=== PATIENT | male | born 1965 | race Caucasian/White ===

== ENCOUNTER 2022-03-05 11:59 | Inpatient (IN) | payer MEDICARE, SELFPAY ==
[2022-03-05] VITALS (26 sets, daily range): BP systolic 86–116; BP diastolic 45–101; PULSE 94–140; RESP 15–28; TEMP 36.2–37.1; O2SAT 90–96; BMI 34.9
--- NOTE | 2022-03-05 12:23 | CT_ITS ---
EXAM: CT HEAD WITHOUT INTRAVENOUS CONTRAST CLINICAL INDICATION: Neuro deficit, acute, stroke suspected TECHNIQUE: Multiple axial images were obtained of the head without intravenous contrast. This CT exam was performed using one or more of the following dose reduction techniques: automated exposure control, adjustment of the mA and/or kV according to patient size, and/or use of iterative reconstruction technique. This report was created using [employer] report generation technology. COMPARISON: None. FINDINGS: BRAIN AND EXTRA-AXIAL SPACES: Areas of diminished white matter density noted within both cerebral hemispheres suggestive of chronic microvascular change. Prominence of the cortical sulci and ventricles related to volume loss change. No intra- or extra-axial hemorrhage. No evidence of acute infarct. No intracranial mass or mass effect. There is preservation of the cuevas/white matter interface. Posterior fossa structures are unremarkable. Basal cisterns are patent. BONES/JOINTS: Normal. No discrete lytic or blastic abnormalities. SINUSES: Mucosal thickening of the paranasal sinuses noted. MASTOID AIR CELLS: Normal. Clear. ORBITS: Visualized globes, extraocular muscles, optic nerves and retrobulbar fat appear unremarkable. CT/STROKE Brain/Head without Cont IMPRESSION: 1. No acute intracranial abnormality. 2. Mild chronic microvascular changes. Aspect score 10 N.B. : The above Results were Read Back by Jed Galdamez MD to Deon Coffman AA, and understanding confirmed on 03/05/2022 12:16:00 (ET). Electronically Signed: Jed Galdamez MD at 12:15 EST ,
--- NOTE | 2022-03-05 12:23 | CT_ITS ---
EXAM: CT ANGIOGRAPHY HEAD AND NECK WITH INTRAVENOUS CONTRAST CLINICAL INDICATION: Neuro deficit, acute, stroke suspected TECHNIQUE: [place]/head and neck CT angiography protocol performed with intravenous contrast. This CT exam was performed using one or more of the following dose reduction techniques: automated exposure control, adjustment of the mA and/or kV according to patient size, and/or use of iterative reconstruction technique. This report was created using [employer] report generation technology. MIP reconstructed images were created and reviewed. CONTRAST: [id number] 100ML COMPARISON: None. FINDINGS: HEAD: RIGHT ANTERIOR CEREBRAL ARTERY: Normal. No significant stenosis at the visualized segments. Anterior communicating artery is present. No aneurysm. RIGHT MIDDLE CEREBRAL ARTERY: Normal. No significant stenosis at the visualized segments. No aneurysm. RIGHT POSTERIOR CEREBRAL ARTERY: Normal. No occlusion or significant stenosis. No aneurysm. RIGHT INTRACRANIAL INTERNAL CAROTID ARTERY: Normal. No significant stenosis. No dissection or occlusion. RIGHT INTRACRANIAL VERTEBRAL ARTERY: Normal. No significant stenosis. No dissection or occlusion. LEFT ANTERIOR CEREBRAL ARTERY: Normal. No significant stenosis at the visualized segments. No aneurysm. LEFT MIDDLE CEREBRAL ARTERY: Normal. No significant stenosis at the visualized segments. No aneurysm. LEFT POSTERIOR CEREBRAL ARTERY: Normal. No occlusion or significant stenosis. No aneurysm. LEFT INTRACRANIAL INTERNAL CAROTID ARTERY: Normal. No significant stenosis. No dissection or occlusion. LEFT INTRACRANIAL VERTEBRAL ARTERY: Dominant left vertebral artery is noted. No significant stenosis. No dissection or occlusion. BASILAR ARTERY: Normal. No significant stenosis. No aneurysm. NECK: RIGHT COMMON CAROTID ARTERY: Normal. No significant stenosis. No dissection or occlusion. RIGHT EXTRACRANIAL INTERNAL CAROTID ARTERY: Normal. No significant stenosis. No dissection or occlusion. RIGHT EXTERNAL CAROTID ARTERY: Normal. No occlusion. RIGHT EXTRACRANIAL VERTEBRAL ARTERY: Cervical portion of the right vertebral artery is quite small in size which appears to be on a congenital level and terminates in small inferior cerebellar branches. No significant stenosis. No dissection or occlusion. LEFT COMMON CAROTID ARTERY: Normal. No significant stenosis. No dissection or occlusion. LEFT EXTRACRANIAL INTERNAL CAROTID ARTERY: Localized 13 mm outpouching from the distal portion of the extracranial left internal carotid artery indicative of a localized pseudoaneurysm. No significant stenosis. No dissection or occlusion. LEFT EXTERNAL CAROTID ARTERY: Normal. No occlusion. LEFT EXTRACRANIAL VERTEBRAL ARTERY: Normal. GREAT VESSELS OF AORTIC ARCH: Unremarkable as visualized. Normal anatomy, patent. LUNG APICES: Prominent air space opacification of the right lung indicative of pneumonia. HEAD and NECK: BONES/JOINTS: Normal. No discrete lytic or blastic abnormalities. SOFT TISSUES: Normal. CAROTID STENOSIS REFERENCE USING NASCET CRITERIA: % ICA stenosis = (1 - narrowest ICA diameter/diameter of distal cervical ICA) x 100. Mild - <50% stenosis. Moderate - 50-69% stenosis. Severe - 70-94% stenosis. Near occlusion - 95-99% stenosis. Occluded - 100% stenosis. CT/STROKE CTA Head AND Neck W/Con IMPRESSION: 1. 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 2. No intracranial artery aneurysm, dissection, stenosis or occlusion. 3. Right upper and lower lobe pneumonia. N.B. : The above Results were Read Back by Jed Galdamez MD to Deon Coffman MD, and understanding confirmed on 03/05/2022 12:39:56 (ET). Electronically Signed: Jed Galdamez MD at 12:38 EST ,
--- NOTE | 2022-03-05 12:23 | EKG12_ITS ---
Test Reason : SEIZURE/STROKE Blood Pressure : / mmHG Vent. Rate : 113 BPM Atrial Rate : 113 BPM P-R Int : 140 ms QRS Dur : 084 ms QT Int : 324 ms P-R-T Axes : 063 065 064 degrees QTc Int : 444 ms Sinus tachycardia Otherwise normal ECG Confirmed by PILAR MCCLOUD, SIS ([id number]), film or videotape editor NICKIE RODARTE ([id number]) on 03/06/2022 12:04:56 PM Referred By: BENOIT Confirmed By:SIS QUEZADA MD
--- NOTE | 2022-03-05 12:31 | EX.ED.DYSGE1 ---
HPI History of Present Illness Chief Complaint: Stroke Alert Informant: EMS Narrative Narrative: 56-year-old male with reported history of prior stroke on Plavix presenting to the emergency department with altered mental status. Reportedly neighbors called EMS after finding the patient having a seizure in the chair. It was reported to EMS that somebody a neighbor spoke with him last night around 2000 hours. EMS states that he was found in a generalized seizure but by the time they got him out of the house he was no longer having a seizure but instead seem postictal. He has not been verbal and has not been following commands. He is noted to be shaking the right arm and then occasionally shaking the left arm. His speech is unintelligible but he can follow some commands such as closing his eyes [facility] Medical History (Updated 03/05/22 @ 14:[address] Deon Coffman, ) GERD (gastroesophageal reflux disease) Headache High cholesterol High triglycerides History of emotional problems History of high blood pressure Migraines Osteoarthritis Pseudoseizures Seasonal allergies Vision problems Home Medications Heavy duty shower chair #1 ea 09/27/21 [Rx Last Taken Unknown] acetaminophen 650 mg tablet,extended release (Tylenol Arthritis Pain) 650 mg PO Q12H 09/27/21 [History Last Taken Unknown] atorvastatin 20 mg tablet (Lipitor) 20 mg PO DAILY 09/27/21 [History Last Taken Unknown] baclofen 20 mg tablet See Rx Instructions .Route .COMPLEX #450 tabs 09/27/21 [Rx Last Taken Unknown] clopidogrel 75 mg tablet (Plavix) 75 mg PO DAILY #90 tabs 09/27/21 [Rx Last Taken Unknown] doxazosin 8 mg tablet 8 mg PO DAILY 09/27/21 [History Last Taken Unknown] duloxetine 60 mg capsule,delayed release 60 mg PO DAILY 09/27/21 [History Last Taken Unknown] fenofibrate 160 mg tablet 160 mg PO DAILY 09/27/21 [History Last Taken Unknown] flurbiprofen 100 mg tablet 100 mg PO TID PRN pain #270 tabs 09/27/21 [Rx Last Taken Unknown] lisinopril 20 mg tablet 20 mg PO DAILY 09/27/21 [History Last Taken Unknown] multivitamin (Multiple Vitamins tablet) 1 tab PO DAILY 09/27/21 [History Last Taken Unknown] olanzapine 7.5 mg tablet 7.5 mg PO QAM #90 tabs 09/27/21 [Rx Last Taken Unknown] omeprazole 40 mg capsule,delayed release 40 mg PO DAILY #90 caps 09/27/21 [Rx Last Taken Unknown] ropinirole 4 mg tablet 4 mg PO BID #180 tabs 09/27/21 [Rx Last Taken Unknown] Allergy/AdvReac Type Severity Reaction Status Date / Time codeine Allergy Hives Verified 03/05/22 13:04 Iodinated Contrast Media Allergy Hives Verified 03/05/22 12:51 [contrast dye - iodinated] Penicillins Allergy Hives Verified 03/05/22 13:01 shellfish derived Allergy Hives Verified 03/05/22 13:04 Family History Sister Anemia Mother Arthritis Hypertension Father Arthritis Hypertension High cholesterol Grandmother Depression Heart disease Thyroid disorder Surgical History H/O: vasectomy History of ankle surgery History of appendectomy History of tonsillectomy Social History Smoking Status: Current every day smoker tobacco type: cigarettes second hand exposure: Yes alcohol intake: current substance use type: does not use [place]/temple: [employer] seatbelt use: always ROS ROS ED Review of Systems ROS Unobtainable: due to mental status EXAM Physical Exam Const Vital Signs: 03/05/22 12:03 03/05/22 12:23 03/05/22 12:32 Temperature 98.1 F 98.1 F Temperature Source Temporal Temporal Pulse Rate 118 H 111 H 111 H Respiratory Rate 28 H 20 H 21 H Blood Pressure 99/63 94/54 L 96/64 Blood Pressure Mean 75 67 74 Pulse Ox 91 93 94 Oxygen Delivery Method Room Air Nasal Cannula Nasal Cannula Oxygen Flow Rate (L/min) 4 4 03/05/22 12:40 03/05/22 13:10 03/05/22 13:40 Temperature 98 F Temperature Source Oral Pulse Rate 109 H 108 H 94 Respiratory Rate 22 H 23 H 17 Blood Pressure 108/57 L 98/62 99/57 L Blood Pressure Mean 74 74 71 Pulse Ox 93 92 92 Oxygen Delivery Method Nasal Cannula Nasal Cannula Nasal Cannula Oxygen Flow Rate (L/min) 4 4 2 03/05/22 13:45 03/05/22 14:00 03/05/22 14:30 Temperature 97.7 F L Temperature Source Temporal Pulse Rate 105 H 105 H 103 H Respiratory Rate 18 22 H 22 H Blood Pressure 101/68 98/52 L Blood Pressure Mean 79 67 Pulse Ox 94 92 Oxygen Delivery Method Nasal Cannula Nasal Cannula Oxygen Flow Rate (L/min) 4 4.5 Positive well nourished and well developed General Appearance ED: well developed HEENT Reports normocephalic, head/scalp atraumatic and moist mucous membranes Eyes PERRL and EOMs intact bilaterally Neck no lymphadenopathy, supple and no JVD Resp normal respiratory effort and clear to auscultation bilaterally Cardio regular rate, regular rhythm and no murmurs GI normal to inspection, nondistended, normoactive bowel sounds and non-tender Palpation: soft Back/Spine no CVA tenderness and normal ROM Extremity normal to inspection General Extremety ED: Negative for edema General Extremity: Negative for edema Neuro Sensorium / Orientation: alert Psych mental status grossly normal Mood & Affect: Negative for depressed or tearful Skin no rashes or lesions noted and no wounds Sepsis Attestation Possible Source of Sepsis: Pulmonary Sepsis Organ Dysfunction Criteria Present: Creatinine > 2.0 mg/dL and Lactic Acid > 2 mmol/L MDM MDM MDM Narrative Medical decision making narrative: I am finding the patient's exam rather in move the left arm but it others taking it. Same thing for the right arm. At times it sounds like he cannot say anything and other times I can understand him. I do not think that he is a candidate for tPA. I do not see LVO. Patient was assessed by neurology who is concerned about a acute stroke. The patient's speech is becoming improved. I have not seen any further seizure activity. A being told by nursing that he has a history of pseudoseizures. The patient's chest x-ray is consistent with pneumonia. He received a breathing treatment and I am concerned about aspiration so I gave Rocephin and clindamycin. He is also requiring supplemental oxygen. He received IV fluids which is improved heart rate and blood pressure. Lab Data Attestation: I reviewed the patient's lab results. Labs: Laboratory Results - last 24 hr 03/05/22 03/05/22 03/05/22 12:15 12:15 12:15 WBC 7.6 RBC 4.00 L Hgb 11.9 L Hct 36.8 L MCV 92.0 MCH 29.8 MCHC 32.3 RDW Std Deviation 54.5 H RDW Coeff of Keith 16.0 H Plt Count 161 MPV 10.0 Neut % (Auto) Not Reportable Absolute Neuts (auto) 5.9 Absolute Lymphs (auto) 0.76 L Total Counted 100 Neutrophils % (Manual) 56 Band Neutrophils % 22 H Lymphocytes % (Manual) 10 L Monocytes % (Manual) 2 Metamyelocytes % 7 H Myelocytes % 3 H Diff Path Review May foll Platelet Estimate ADEQUATE RBC Morphology NORM C+C PT 17.0 H INR 1.4 APTT 33.4 Sodium Potassium Chloride Carbon Dioxide Anion Gap BUN Creatinine Estim Creat Clear Calc Est GFR (MDRD) Af Amer Est GFR (MDRD) Non-Af BUN/Creatinine Ratio Glucose Lactic Acid Calcium Total Bilirubin 0.90 Direct Bilirubin 0.49 H AST 26 ALT 30 Alkaline Phosphatase 44 L Troponin I High Sens Total Protein 6.3 L Albumin 2.8 L Globulin 3.5 Urine Color Urine Clarity Urine pH Ur Specific [place] Urine Protein Urine Glucose (UA) Urine Ketones Urine Occult Blood Urine Nitrite Urine Bilirubin Urine Urobilinogen Ur Leukocyte Esterase Urine RBC Urine WBC Ur Squamous Epith Cells Urine Bacteria Hyaline Casts Fine Granular Casts Waxy Casts Urine Mucus 03/05/22 03/05/22 03/05/22 12:15 12:15 13:32 WBC RBC Hgb Hct MCV MCH MCHC RDW Std Deviation RDW Coeff of Keith Plt Count MPV Neut % (Auto) Absolute Neuts (auto) Absolute Lymphs (auto) Total Counted Neutrophils % (Manual) Band Neutrophils % Lymphocytes % (Manual) Monocytes % (Manual) Metamyelocytes % Myelocytes % Diff Path Review Platelet Estimate RBC Morphology PT INR APTT Sodium 135 L Potassium 4.0 Chloride 100 Carbon Dioxide 22.0 Anion Gap 13 BUN 34 H Creatinine 3.24 H Estim Creat Clear Calc 30.43 Est GFR (MDRD) Af Amer 26 L Est GFR (MDRD) Non-Af 21 L BUN/Creatinine Ratio 10.5 Glucose 116 H Lactic Acid 5.4 H* Calcium 8.7 Total Bilirubin Direct Bilirubin AST ALT Alkaline Phosphatase Troponin I High Sens 9 Total Protein Albumin Globulin Urine Color [place] Urine Clarity Clear Urine pH 5.0 Ur Specific [place] 1.025 Urine Protein 30 H Urine Glucose (UA) Normal Urine Ketones 5 H Urine Occult Blood 10 H Urine Nitrite Positive H Urine Bilirubin 3 H Urine Urobilinogen 4 H Ur Leukocyte Esterase 25 H Urine RBC 0-5 SEEN Urine WBC 5-10 SEEN Ur Squamous Epith Cells 0-5 SEEN Urine Bacteria 1+ Hyaline Casts 10-25 SEEN Fine Granular Casts 0-5 SEEN Waxy Casts 0-5 SEEN H Urine Mucus 1+ Radiography Diagnostic Testing: Clinical Impression(s) from Imaging Studies Brain CT 03/05/22 12:23 IMPRESSION: 1. No acute intracranial abnormality. 2. Mild chronic microvascular changes. Aspect score 10 N.B. : The above Results were Read Back by Jed Galdamez MD to Deon Coffman AA, and understanding confirmed on 03/05/2022 12:16:00 (ET). Electronically Signed: Jed Galdamez MD at 12:15 EST , Head/Neck CTA 03/05/22 12:23 IMPRESSION: 1. 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 2. No intracranial artery aneurysm, dissection, stenosis or occlusion. 3. Right upper and lower lobe pneumonia. N.B. : The above Results were Read Back by Jed Galdamez MD to Deon Coffman MD, and understanding confirmed on 03/05/2022 12:39:56 (ET). Electronically Signed: Jed Galdamez MD at 12:38 EST , Chest X-Ray 03/05/22 13:02 IMPRESSION: Bilateral pneumonia. Electronically Signed: Jed Galdamez MD at 13:29 EST , EKG Initial EKG: Attestation: I personally reviewed and interpreted this EKG as follows: Comments: Sinus tachycardia with a ventricular rate of 113 bpm Discharge Plan Dx/Rx/DC Orders Clinical Impression: Stroke, Pneumonia, Anxiety, Acute hypoxemic respiratory failure, Seizure Disposition Disposition: Acute Care [facility] NIHSS NIHSS 1a. Level of Consciousness: Alert; keenly responsive 1b. LOC Questions: Answers neither question correctly. 1c. LOC Commands: Performs one task correctly. 2. Best Gaze: Normal 3. Visual: No visual loss 4. Facial Palsy: Normal symmetrical movements 5a. Left Arm: No drift; arm holds 90 (or 45) degrees for full 10 seconds 5b. Right Arm: No drift; arm holds 90 (or 45) degrees for full 10 seconds 6a. Left Leg: No drift; leg holds 30-degree position for full 5 seconds 6b. Right Leg: No drift; leg holds 30-degree position for full 5 seconds 7. Limb Ataxia: Absent 8. Sensory: Normal; no sensory loss 9. Best Language: Severe aphasia; 10. Dysarthria: [id number] dysarthria; 11. Extinction and Inattention: No abnormality Total: 6
[2022-03-05 12:37] LABS: Hematocrit 36.8 % (40-54); Hemoglobin 11.9 g/dL (13.0-16.5); Mean Corp Hgb Conc 32.3 g/dL (32-36); Mean Corpuscular Hgb 29.8 pg (27.0-32.0); POSITIVE COUNT YES; POSITIVE DIFFERENTIAL YES; POSITIVE MORPHOLOGY YES; Platelet Count 161 K/mm3 (150-450); RBC Distribution Width SD 54.5 fl (35.1-43.9); White Blood Count 7.6 K/mm3 (4.4-11.0)
[2022-03-05 12:41] LABS: Differential Indicated MANUAL DIFF
[2022-03-05] MEDS: 0.9% Normal Saline 1,000 ML 999 ML IV ×4 (12:50→18:35)
[2022-03-05 12:53] LABS: International Normalized Ratio 1.4; Partial Thromboplast Time 33.4 Seconds (24.1-36.2)
[2022-03-05 12:57] LABS: Anion Gap 13 (5-15); BUN 34 mg/dL (7-18); BUN/Creat Ratio 10.5 RATIO (10-20); Calcium,Total 8.7 mg/dL (8.5-10.1); Chloride 100 mmol/L (98-107); Creatinine, Serum 3.24 mg/dL (0.70-1.30); EST Glomerular Filtration Rate 21 mL/min (>60); Est Glom Filt Rate - Afr Amer 26 mL/min (>60); Estimated Creatinine Clearance 30.43 ml/min; Glucose 116 mg/dL (74-106); Sodium Level 135 mmol/L (136-145); Troponin-I HS 9 pg/mL (3.0-78.0)
[2022-03-05 13:01] LABS: AST(SGOT) 26 U/L (15-37); Alanine Aminotransfer ALT/SGPT 30 U/L (16-61); Albumin, Serum 2.8 g/dL (3.2-5.0); Alkaline Phosphatase 44 U/L (45-117); Bilirubin, Direct 0.49 mg/dL (0.00-0.30); Globulin 3.5 g/dL (2.2-4.2); Protein, Total 6.3 g/dL (6.4-8.2)
--- NOTE | 2022-03-05 13:02 | RAD_ITS ---
EXAM: XR CHEST, 1 VIEW CLINICAL INDICATION: Neuro deficit, acute, stroke suspected TECHNIQUE: Frontal view of the chest. This report was created using [employer] report generation technology. COMPARISON: None. FINDINGS: LUNGS AND PLEURAL SPACES: Fairly dense consolidation of the right upper and right middle lobes of the lung and to a lesser degree the left lower lobe consistent with pneumonia. No gross pleural effusion. No pneumothorax. HEART: Normal heart size. MEDIASTINUM: No mediastinal or hilar mass. BONES/JOINTS: No acute abnormality. SOFT TISSUES: Normal. RAD/Chest 1 View IMPRESSION: Bilateral pneumonia. Electronically Signed: Jed Galdamez MD at 13:29 EST ,
[2022-03-05 13:05] LABS: Lactic Acid 5.4 mmol/L (0.4-1.9)
[2022-03-05 13:18] LABS: Lymphocyte 10 % (19-41); Metamyelocyte 7 % (0-1); Monocyte 2 % (0-10); Myelocyte 3 % (0-0); Neutrophil-Band 22 % (0-5); Neutrophil-Segmented 56 % (47-70); Total Cells Counted 100 (MANUAL DIFF)
[2022-03-05 13:19] LABS: Platelet Estimate ADEQUATE (ADEQ); Red Cell Morphology NORM C+C NORMAL (NORM C&C)
[2022-03-05 13:20] LABS: Absolute Neutrophil Count 5.9 X10^3/uL (2.0-7.7)
[2022-03-05 13:21] LABS: Absolute Lymphocyte Count 0.76 X10^3/uL (0.83-4.51)
[2022-03-05 13:38] LABS: Color, Urine Amber (Yellow); Glucose, Dipstick Normal (Normal); Ketone-Dipstick 5 mg/dl (Negative); Leukocyte Esterase-Dipstick 25 /ul (Negative); Nitrite-Dipstick Positive (Negative); Occult Blood-Urine 10 /ul (Negative); Protein-Dipstick 30 mg/dl (Negative); Specific Gravity, Urine 1.025 (1.002-1.030); Urine Clarity Clear (Clear); Urine Urobilinogen 4 mg/dl (Normal)
[2022-03-05 13:43] LABS: Urine Bilirubin Dipstick 3 mg/dL (Negative)
[2022-03-05] MEDS: Ipratropium/Albuterol Sulfate 3 ML AMPUL.NEB INHALATION (13:44)
[2022-03-05 13:48] LABS: Bacteria 1+ /hpf (None Seen); Fine Granular Cast- Urine 0-5 SEEN /lpf (0-5); Hyaline Cast 10-25 SEEN /lpf (0-5); Mucous, Urine 1+ /hpf (<or=2+); Squamous Epithelial Cells - UA 0-5 SEEN /hpf (0-5)
[2022-03-05 13:51] LABS: Red Blood Cells-Urine 0-5 SEEN /hpf (0-5); White Blood Cells 5-10 SEEN /hpf (0-5)
[2022-03-05 13:52] LABS: Waxy Cast-Urine 0-5 SEEN /lpf (None Seen)
[2022-03-05] MEDS: Ceftriaxone 1 GM/50 ML BAG IV (14:38)
[2022-03-05] MEDS: Clindamycin 600 MG/50 ML BAG 100 MG IV (15:14)
--- NOTE | 2022-03-05 15:18 | ED.RN ---
Sera Bgogs, , would be able to pick patient up if needed and was wanting to be called as back up to [facility] as listed in contacts.
--- NOTE | 2022-03-05 16:04 | PCM.HP.STD ---
HPI - General General Date of Admission: 03/05/22 Date of Service: 03/05/22 Chief Complaint: confusion HPI Narrative ANDREA MCLAUGHLIN, is a 56 M who presents with confusion by family. Neighbors had called EMS after what appeared to be a seizure in a chair. Patient was seen last night around 1999. EMS states the patient was having a seizure but was not having a seizure when they arrived. The postictal period patient was noted to be shaking his right arm but patient also has reported history of pseudoseizures.'s patient was brought to the emergency room and evaluated. Patient had a head CT, CTA of the head neck that were unremarkable. Patient was seen by [facility] who recommended additional stroke work-up including TTE, MRI of the head as well therapy evaluations. Patient was found to have a right lower lobe infiltrate and did receive ceftriaxone and clindamycin in the emergency room. Patient does have dysarthria but patient's [id number] is present and states that that that is his baseline from his prior stroke but he is stammering more. Patient is confused so much of the history is obtained through the emergency room physician as well as [id number] at bedside. [facility] Medical History GERD (gastroesophageal reflux disease) Headache High cholesterol High triglycerides History of emotional problems History of high blood pressure Migraines Osteoarthritis Pseudoseizures Seasonal allergies Vision problems Home Medications Heavy duty shower chair #1 ea 09/27/21 [Rx Last Taken Unknown] acetaminophen 650 mg tablet,extended release (Tylenol Arthritis Pain) 650 mg PO Q12H 09/27/21 [History Last Taken Unknown] atorvastatin 20 mg tablet (Lipitor) 20 mg PO DAILY 09/27/21 [History Last Taken Unknown] baclofen 20 mg tablet See Rx Instructions .Route .COMPLEX #450 tabs 09/27/21 [Rx Last Taken Unknown] clopidogrel 75 mg tablet (Plavix) 75 mg PO DAILY #90 tabs 09/27/21 [Rx Last Taken Unknown] doxazosin 8 mg tablet 8 mg PO DAILY 09/27/21 [History Last Taken Unknown] duloxetine 60 mg capsule,delayed release 60 mg PO DAILY 09/27/21 [History Last Taken Unknown] fenofibrate 160 mg tablet 160 mg PO DAILY 09/27/21 [History Last Taken Unknown] flurbiprofen 100 mg tablet 100 mg PO TID PRN pain #270 tabs 09/27/21 [Rx Last Taken Unknown] lisinopril 20 mg tablet 20 mg PO DAILY 09/27/21 [History Last Taken Unknown] multivitamin (Multiple Vitamins tablet) 1 tab PO DAILY 09/27/21 [History Last Taken Unknown] olanzapine 7.5 mg tablet 7.5 mg PO QAM #90 tabs 09/27/21 [Rx Last Taken Unknown] omeprazole 40 mg capsule,delayed release 40 mg PO DAILY #90 caps 09/27/21 [Rx Last Taken Unknown] ropinirole 4 mg tablet 4 mg PO BID #180 tabs 09/27/21 [Rx Last Taken Unknown] Allergy/AdvReac Type Severity Reaction Status Date / Time codeine Allergy Hives Verified 03/05/22 13:04 Iodinated Contrast Media Allergy Hives Verified 03/05/22 12:51 [contrast dye - iodinated] Penicillins Allergy Hives Verified 03/05/22 13:01 shellfish derived Allergy Hives Verified 03/05/22 13:04 Family History Sister Anemia Mother Arthritis Hypertension Father Arthritis Hypertension High cholesterol Grandmother Depression Heart disease Thyroid disorder Surgical History H/O: vasectomy History of ankle surgery History of appendectomy History of tonsillectomy Social History Smoking Status: Current every day smoker tobacco type: cigarettes second hand exposure: Yes alcohol intake: current substance use type: does not use [place]/voodoo: [employer] seatbelt use: always ROS Review of Systems ROS Unobtainable: due to encephalopathy Vital Signs Vital Signs Vital Signs: 03/05/22 12:03 03/05/22 12:23 03/05/22 12:32 Temperature 36.7 C 36.7 C Temperature Source Temporal Temporal Pulse Rate 118 H 111 H 111 H Respiratory Rate 28 H 20 H 21 H Blood Pressure 99/63 94/54 L 96/64 Blood Pressure Mean 75 67 74 Pulse Ox 91 93 94 Oxygen Delivery Method Room Air Nasal Cannula Nasal Cannula Oxygen Flow Rate (L/min) 4 4 03/05/22 12:40 03/05/22 13:10 03/05/22 13:40 Temperature 36.6 C Temperature Source Oral Pulse Rate 109 H 108 H 94 Respiratory Rate 22 H 23 H 17 Blood Pressure 108/57 L 98/62 99/57 L Blood Pressure Mean 74 74 71 Pulse Ox 93 92 92 Oxygen Delivery Method Nasal Cannula Nasal Cannula Nasal Cannula Oxygen Flow Rate (L/min) 4 4 2 03/05/22 13:45 03/05/22 14:00 03/05/22 14:30 Temperature 36.5 C L Temperature Source Temporal Pulse Rate 105 H 105 H 103 H Respiratory Rate 18 22 H 22 H Blood Pressure 101/68 98/52 L Blood Pressure Mean 79 67 Pulse Ox 94 92 Oxygen Delivery Method Nasal Cannula Nasal Cannula Oxygen Flow Rate (L/min) 4 4.5 03/05/22 15:20 03/05/22 15:00 03/05/22 15:00 Temperature 36.6 C Temperature Source Temporal Pulse Rate 102 H 102 H 102 H Respiratory Rate 22 H 22 H 22 H Blood Pressure 97/62 97/62 97/62 Blood Pressure Mean 73 73 73 Pulse Ox 92 92 92 Oxygen Delivery Method Nasal Cannula Nasal Cannula Nasal Cannula Oxygen Flow Rate (L/min) 4 2 03/05/22 15:30 Temperature Temperature Source Pulse Rate 101 H Respiratory Rate 20 H Blood Pressure 112/89 H Blood Pressure Mean 96 Pulse Ox 94 Oxygen Delivery Method Nasal Cannula Oxygen Flow Rate (L/min) 4 Weight Weight: 127 kg Body Mass Index (BMI) 34.9 Physical Exam Const Constitutional Narrative: Alert to self but not the place and time. Follows commands. HEENT normocephalic and head/scalp atraumatic Eyes PERRL and EOMs intact bilaterally Neck no lymphadenopathy Neck Narrative: No lymphadenopathy Resp normal respiratory effort, no retractions, no use of accessory muscles and clear to auscultation bilaterally Cardio regular rate, regular rhythm, S1 normal heart sound and S2 normal heart sound GI normal to inspection, nondistended, normoactive bowel sounds, soft to palpation, non-tender and non-distended Extremity normal to inspection Neuro CN's II-XII intact bilaterally Neuro Narrative: Muscle strength is diffusely weak throughout. Patient noted mostly having tremulousness of his right upper extremity but not in any other extremities. Noted dysarthria. Difficulty reciting the pitcher on the NIH scale. Missed cactus and feather on the item selection. NIH score of 15. Psych affect normal Results Lab / Micro Data Result Diagrams: 03/05/22 12:15 03/05/22 12:15 Labs: Laboratory Results - last 24 hr 03/05/22 12:15: Total Bilirubin 0.90, Direct Bilirubin 0.49 H, AST 26, ALT 30, Alkaline Phosphatase 44 L, Total Protein 6.3 L, Albumin 2.8 L, Globulin 3.5 03/05/22 12:15: WBC 7.6, RBC 4.00 L, Hgb 11.9 L, Hct 36.8 L, MCV 92.0, MCH 29.8, MCHC 32.3, RDW Std Deviation 54.5 H, RDW Coeff of Keith 16.0 H, Plt Count 161, MPV 10.0, Neut % (Auto) Not Reportable, Absolute Neuts (auto) 5.9, Absolute Lymphs (auto) 0.76 L, Total Counted 100, Neutrophils % (Manual) 56, Band Neutrophils % 22 H, Lymphocytes % (Manual) 10 L, Monocytes % (Manual) 2, Metamyelocytes % 7 H, Myelocytes % 3 H, Diff Path Review May foll, Platelet Estimate ADEQUATE, RBC Morphology NORM C+C 03/05/22 12:15: PT 17.0 H, INR 1.4, APTT 33.4 03/05/22 12:15: Sodium 135 L, Potassium 4.0, Chloride 100, Carbon Dioxide 22.0, Anion Gap 13, BUN 34 H, Creatinine 3.24 H, Estim Creat Clear Calc 30.43, Est GFR (MDRD) Af Amer 26 L, Est GFR (MDRD) Non-Af 21 L, BUN/Creatinine Ratio 10.5, Glucose 116 H, Calcium 8.7, Troponin I High Sens 9 03/05/22 12:15: Lactic Acid 5.4 H* 03/05/22 13:32: Urine Color Estrellita, Urine Clarity Clear, Urine pH 5.0, Ur Specific [place] 1.025, Urine Protein 30 H, Urine Glucose (UA) Normal, Urine Ketones 5 H, Urine Occult Blood 10 H, Urine Nitrite Positive H, Urine Bilirubin 3 H, Urine Urobilinogen 4 H, Ur Leukocyte Esterase 25 H, Urine RBC 0-5 SEEN, Urine WBC 5-10 SEEN, Ur Squamous Epith Cells 0-5 SEEN, Urine Bacteria 1+, Hyaline Casts 10-25 SEEN, Fine Granular Casts 0-5 SEEN, Waxy Casts 0-5 SEEN H, Urine Mucus 1+ Radiology Impression Brain CT 03/05/22 12:23 IMPRESSION: 1. No acute intracranial abnormality. 2. Mild chronic microvascular changes. Aspect score 10 N.B. : The above Results were Read Back by Jed Galdamez MD to Deon Coffman AA, and understanding confirmed on 03/05/2022 12:16:00 (ET). Electronically Signed: Jde Galdamez MD at 12:15 EST , Head/Neck CTA 03/05/22 12:23 IMPRESSION: 1. 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 2. No intracranial artery aneurysm, dissection, stenosis or occlusion. 3. Right upper and lower lobe pneumonia. N.B. : The above Results were Read Back by Jed Galdamez MD to Deon Coffman MD, and understanding confirmed on 03/05/2022 12:39:56 (ET). Electronically Signed: Jed Galdamez MD at 12:38 EST , Chest X-Ray 03/05/22 13:02 IMPRESSION: Bilateral pneumonia. Electronically Signed: Jed Galdamez MD at 13:29 EST , Assessment & Plan Assessment/Plan (1) CVA (cerebral vascular accident): PLAN: Suspected but cannot rule out postictal versus other possibilities. Patient will have an MRI of the brain, 2D echocardiogram, fasting lipid panel. Therapy evaluations with physical, occupational and speech therapy Aspirin Continue with clopidogrel and atorvastatin Cannot rule out seizure or postictal. Check EEG (2) Pneumonia: PLAN: Right lower lobe infiltrate. Could be community-acquired/pneumococcal versus aspiration with this possible seizure Will continue with antibiotics with ceftriaxone and azithromycin Check sputum culture Check urinary antigens for strep and Legionella (3) ANJALI (acute kidney injury): PLAN: No baseline but cannot rule out chronic kidney disease IV fluids Avoid nephrotoxic agents Check urinary sodium and creatinine to calculate FENa Check renal US. (4) Lactic acidosis: PLAN: Unclear etiology Possibilities could be related with pneumonia versus possible seizure versus sepsis. Follow-up Patient will be receiving IV fluids (5) Seizure: PLAN: Unclear if patient's actively having seizures or pseudoseizures Check EEG As needed lorazepam PLAN: Plan Chronic conditions Chronic back pain: Hold baclofen, flurbiprofen Depression: Hold olanzapine and duloxetine anxiety pseudoseizures: Monitor History of stroke VTE prophylaxis with Lovenox Charges/Coding Visit Charges Inpatient E&M: 22021 Init Hosp L3
--- NOTE | 2022-03-05 16:30 | ED.RN ---
care of pt was taken over at 1608. sepsis screen completed and dr informed. initial md signed over pt to secondary md. secondary md was informed of sepsis checklist results. pt held in department for secondary md to evaluated at his request. yerfi keating rn [id number]
[2022-03-05 16:33] LABS: Reflex Lactate? Y
--- NOTE | 2022-03-05 16:46 | ECHOCS_ITS ---
Reason For Study: TIA/CVA Procedure This was a 2D Doppler, Color Flow transthoracic echocardiogram. The study was technically difficult. Exam performed portable in patient room. Left Ventricle Normal LV size. Left ventricular systolic function is lower limits of normal. The estimated ejection fraction is 50 %. No regional wall motion abnormalities noted. Right Ventricle Normal RV size. Normal systolic function. Atria Normal left atrium. Normal right atrium. Bubble contrast study negative for right to left interatrial shunt. Mitral Valve Mitral valve not well visualized. Tricuspid Valve Normal tricuspid valve. Mild tricuspid valve insufficiency. Pulmonary artery systolic pressure is 32 mmHg. Aortic Valve The aortic valve is not well visualized. Pulmonic Valve The pulmonic valve is not well visualized. Great Vessels Normal aortic root. The pulmonary artery is normal size. Normal inferior vena cava. Pericardium/Pleural No pericardial effusion. Medication Performed a rapid injection of agitated mix of 9 cc saline and 1cc air to assess for atrial septal defect. Diluted definity 3ml given slow IV push to enhance endocardial definition. MMode/2D Measurements & Calculations LVIDd: 5.7 cm IVSd: 1.1 cm Ao root diam: 3.1 cm LVIDs: 4.1 cm LVPWd: 0.99 cm FS: 28.4 % LAV(MOD-bp): 68.2 ml LVAd ap4: 31.4 cm2 SV(MOD-sp4): 51.9 ml LAV(MOD-bp) Indexed: 26.9 ml/m2 LVLd ap4: 8.3 cm LAV(MOD-sp2): 65.3 ml EDV(MOD-sp4): 97.5 ml LAV(MOD-sp4): 62.1 ml EDV(sp4-el): 101.1 ml LVAs ap4: 20.0 cm2 LVLs ap4: 7.2 cm ESV(MOD-sp4): 45.6 ml ESV(sp4-el): 47.5 ml EF(MOD-sp4): 53.2 % EF(sp4-el): 53.0 % SV(sp4-el): 53.6 ml LA A4 area: 21.8 cm2 LA dimension(2D): 4.2 cm RA A4 area: 18.4 cm2 Doppler Measurements & Calculations MV E max ivan: 53.8 cm/sec Lat Peak E' Ivan: 8.0 cm/sec Med Peak E' Ivan: 5.3 cm/sec MV A max ivan: 63.7 cm/sec E/E' lat: 6.7 E/E' med: 10.2 MV E/A: 0.84 Ao V2 max: 115.3 cm/sec LV V1 max: 93.2 cm/sec PA V2 max: 62.7 cm/sec Ao max P.3 mmHg LV V1 max P.5 mmHg TR max ivan: 264.6 cm/sec TR max P.0 mmHg ECHO/Echo Complete W/ Contrast Interpretation Summary Normal LV size. Left ventricular systolic function is lower limits of normal. The estimated ejection fraction is 50 %. Bubble contrast study negative for right to left interatrial shunt. Pulmonary artery systolic pressure is 32 mmHg. Contrast injection was performed. Ordering Physician: Martin Heredia Performed By: Tanisha Wilkinson RDCS, RVT
[2022-03-05 17:04] LABS: Lactic Acid 2.8 mmol/L (0.4-1.9)
[2022-03-05] MEDS: 0.9% Normal Saline 1,000 ML 150 ML IV (17:09)
[2022-03-05 17:38] LABS: Troponin-I HS 12 pg/mL (3.0-78.0)
--- NOTE | 2022-03-05 18:01 | EKG12_ITS ---
Test Reason : change in hr Blood Pressure : / mmHG Vent. Rate : 127 BPM Atrial Rate : 000 BPM P-R Int : 000 ms QRS Dur : 080 ms QT Int : 340 ms P-R-T Axes : 000 049 -08 degrees QTc Int : 494 ms Atrial fibrillation with rapid ventricular response Nonspecific ST and T wave abnormality Abnormal ECG When compared with ECG of 05-MAR-2022 12:26, MANUAL COMPARISON REQUIRED, DATA IS UNCONFIRMED Confirmed by PILAR MCCLOUD, SIS ([id number]), content editor NICKIE RODARTE ([id number]) on 03/07/2022 9:07:23 AM Referred By: Giovanna Confirmed By:SIS QUEZADA MD
[2022-03-05 18:51] LABS: Bedside Glucose 102 mg/dL (74-106)
[2022-03-05 19:25] LABS: Urine Sodium < 5 mmol/L (Not Establ.)
--- NOTE | 2022-03-05 22:00 | NURSING ---
This RN called pts sister to do MRI checklist and medication reconcilliation. This RN asked sister about patients baseline behavior. Sister stated that patient is normally independent at home, he can walk around as long as he has his leg brace on, speech is normal and pt is able to talk in complete sentences. Sister stated that he did have a TBI and has a history of 3 strokes, but at times he can still get tremors. This RN let sister know that pts BP has been on the low side, so they are transfering him to ICU.
[2022-03-05] MEDS: LORazepam 2 MG/ML Syringe IV (23:31)
--- NOTE | 2022-03-05 23:35 | RAD_ITS ---
INDICATION: hypoxia EXAMINATION/TECHNIQUE: X-RAY - XR Chest 1 View COMPARISON: 03/05/2022 FINDINGS: LINES/DEVICES: None. LUNGS: Right perihilar hazy and patchy opacities and retrocardiac opacity, similar compared to the prior. MEDIASTINUM AND CARDIOVASCULAR STRUCTURES: Atherosclerotic calcifications and cardiomediastinal contours, similar compared to the prior. BONES AND SOFT TISSUES: No acute osseous abnormality. RAD/Chest 1 View (Portable) IMPRESSION: Bilateral opacities consistent with infection, similar compared to the prior. Electronically Signed: Hima Eden MD at 0:01 EST ,
[2022-03-05 23:36] LABS: Bedside Glucose 104 mg/dL (74-106)
[2022-03-05] MEDS: levETIRAcetam IV 100 ML 400 MG IV (23:43)
[2022-03-05] MEDS: Furosemide 40 MG/4 ML Vial IV (23:48)
[2022-03-05] MEDS: 0.9% Saline Lock 10 ML Syringe IV (23:48)
--- NOTE | 2022-03-05 23:48 | PN_ITS ---
Progress Note Rapid response: Patient was transferred from the PCU to ICU because patient was hypotensive and the plan was to start patient on pressors since patient has received about 4 L of normal saline already. Patient already on ceftriaxone and azithromycin. From review of records patient had received Zosyn at the emergency department. With patient's hypotension ceftriaxone was discontinued and Zosyn ordered. One- time dose of vancomycin was ordered. MRSA nasal screen was ordered. At the intensive care unit patient's was rapid response for seizure-like activity where he was moving all his extremities and he was not talking. With 2 mg of Ativan seizure-like activity was abated. Loading dose Keppra given. Prolactin, CPK, CBC, CMP, ABG and ammonia level ordered. Will schedule Keppra. Will order Ativan as needed. EEG already ordered Patient is no longer hypotensive likely from seizure-like activity. Will not require Levophed at this time.
[2022-03-05 23:54] LABS: Absolute Lymphocyte Count 0.41 X10^3/uL (0.83-4.51); Absolute Neutrophil Count 5.5 X10^3/uL (2.0-7.7); Basophil# 0.05 X10^3/uL; Basophil% 0.8 % (0-1); Hematocrit 36.7 % (40-54); Hemoglobin 11.5 g/dL (13.0-16.5); Lymphocyte # 0.41 X10^3/ul (0.83-4.51); Lymphocyte % 6.6 % (19-41); Mean Corp Hgb Conc 31.3 g/dL (32-36); Mean Corpuscular Volume 92.4 fL (80-94); Mean Platelet Vol. 9.8 fl (6.2-12.0); Monocyte# 0.19 X10^3/uL; NRBC Flagged by Analyzer 0 % (0-5); Neutrophil # 5.51 X10^3/uL (2.7-7.7); Neutrophil % 88.3 % (47-70); POSITIVE DIFFERENTIAL YES; POSITIVE MORPHOLOGY YES; Platelet Count 164 K/mm3 (150-450); RBC Distribution Width CV 16.3 % (11.6-14.6); RBC Distribution Width SD 55.9 fl (35.1-43.9); Red Blood Count 3.97 M/mm3 (4.6-6.2); White Blood Count 6.2 K/mm3 (4.4-11.0)
[2022-03-05 23:56] LABS: Allen Test Positive; Base Excess -4 mmol/L (-2 to +2); Bicarbonate 21.4 mmol/L (22-26); Blood Gas Specimen Type ART; O2 Delivery Device Cannula; PO2 68 mmHG (75-100); SITE L Radial; SO2 92 % (95-99); Total Carbon Dioxide 23 mmol/L; pCO2 38.2 mmHg (35-45); pH 7.36 (7.35-7.45)
[2022-03-06] VITALS (31 sets, daily range): BP systolic 71–147; BP diastolic 47–125; PULSE 74–105; RESP 15–26; TEMP 36.1–37.2; O2SAT 86–100; BMI 34.9
--- NOTE | 2022-03-06 00:05 | NURSING ---
BOARD OF EDUCATION SECRETARY called d/t probable seizure. @2330. lasted approx 10min until iv ativan could be given. full body spasms tense, unresponsive. after ativan was given pt slept and was snoring. pt wheezing and sounds wet lasix iv given also.
[2022-03-06 00:10] LABS: Differential Indicated SCAN CRITERIA MET
[2022-03-06 00:21] LABS: ALB/GLOB Ratio 0.7 RATIO (0.9-2.4); AST(SGOT) 22 U/L (15-37); Alanine Aminotransfer ALT/SGPT 30 U/L (16-61); Albumin, Serum 2.6 g/dL (3.2-5.0); Alkaline Phosphatase 50 U/L (45-117); Anion Gap 9 (5-15); BUN 38 mg/dL (7-18); BUN/Creat Ratio 17.5 RATIO (10-20); CPK Total, Creatine Kinase 79 U/L (39-308); Calcium,Total 8.3 mg/dL (8.5-10.1); Chloride 110 mmol/L (98-107); Creatinine, Serum 2.17 mg/dL (0.70-1.30); EST Glomerular Filtration Rate 34 mL/min (>60); Est Glom Filt Rate - Afr Amer 41 mL/min (>60); Estimated Creatinine Clearance 45.43 ml/min; Globulin 3.8 g/dL (2.2-4.2); Glucose 107 mg/dL (74-106); Potassium 4.2 mmol/L (3.5-5.1); Prolactin 7.4 ng/mL; Protein, Total 6.4 g/dL (6.4-8.2); Sodium Level 142 mmol/L (136-145)
--- NOTE | 2022-03-06 00:23 | NURSING ---
gave report to MACK Roberts
[2022-03-06 00:26] LABS: Anisocytosis 1+
[2022-03-06 00:27] LABS: Atypical Lymphocyte 1+ %
--- NOTE | 2022-03-06 00:46 | NURSING ---
received report from PCU nurse. pt being transferred to the ICU for hypotension and change in mental status. Per [employer]GER [employer] COMM[employer]ICATIONS that at shift change,1900, pt was able to speak clearly and followed some commands. @2245 I went into room with rn ortho to do [facility] and to transport pt to ICU. At that time pt tremor to rt arm, diaphoretic, tongue moving rapidly in mouth, would blink and focus on finger clicking in front of face for a brief moment, occasionally moaning, would not speak, follow commands, unable to complete NIH. flaccid arms and legs. pt piv in rt shoulder infiltrated- red and hard. pt has moist cough occasionally seemed like the was gaging. once pt got to the ICU pts whole body was tremoring ELECTRONIC SEMICONDUCTOR PROCESSOR called
[2022-03-06 00:52] LABS: Ammonia < 10.0 umol/L (11-32)
[2022-03-06 00:54] LABS: Lactic Acid 2.4 mmol/L (0.4-1.9)
[2022-03-06] MEDS: Ondansetron 4 MG/2 ML Vial IV (01:21)
[2022-03-06 02:30] LABS: M R Staph aureus DNA By PCR Negative (Negative); Probe Check PASS; Specimen Processing Control PASS
[2022-03-06 03:50] LABS: Reflex Lactate? Y
--- NOTE | 2022-03-06 04:23 | CT_ITS ---
EXAM: CT brain without contrast HISTORY: Change in mental status TECHNIQUE: CT Head or Brain W/O Contrast Injection A radiation dose optimization technique was used for this scan. COMPARISON: CT brain 03/05/2022. LIMITATIONS: None. BRAIN: Normal cuevas/white matter differentiation. VENTRICLES: No hydrocephalus. EXTRA-AXIAL SPACES: No hemorrhages, fluid collections, or masses. CALVARIUM/SKULL BASE: Normal. FACE/SINUSES: Age indeterminate right nasal bone fracture. SOFT TISSUES: Normal. OTHER: None. CT/Brain/Head without Contrast IMPRESSION: No intracranial hemorrhage or acute territorial infarction. Age-indeterminate nasal fracture. Electronically Signed: Hima Eden MD at 5:54 EST ,
[2022-03-06] MEDS: LORazepam 2 MG/ML Syringe 4 MG IV (05:18)
[2022-03-06] MEDS: 0.9% Saline Lock 10 ML Syringe IV ×2 (05:21)
[2022-03-06 05:56] LABS: Absolute Lymphocyte Count 0.44 X10^3/uL (0.83-4.51); Absolute Neutrophil Count 6.7 X10^3/uL (2.0-7.7); Hematocrit 39.4 % (40-54); Hemoglobin 11.9 g/dL (13.0-16.5); Lymphocyte # 0.44 X10^3/ul (0.83-4.51); Mean Corp Hgb Conc 30.2 g/dL (32-36); Mean Corpuscular Hgb 29.6 pg (27.0-32.0); Mean Platelet Vol. 10.1 fl (6.2-12.0); Monocyte# 0.21 X10^3/uL; Monocyte% 2.8 % (0-10); NRBC Flagged by Analyzer 0 % (0-5); Neutrophil # 6.71 X10^3/uL (2.7-7.7); Neutrophil % 90.9 % (47-70); POSITIVE DIFFERENTIAL YES; POSITIVE MORPHOLOGY YES; Platelet Count 147 K/mm3 (150-450); RBC Distribution Width CV 16.6 % (11.6-14.6); RBC Distribution Width SD 60.7 fl (35.1-43.9); Red Blood Count 4.02 M/mm3 (4.6-6.2); White Blood Count 7.4 K/mm3 (4.4-11.0)
[2022-03-06 06:03] LABS: Differential Indicated SCAN CRITERIA MET
[2022-03-06 06:15] LABS: ALB/GLOB Ratio 0.6 RATIO (0.9-2.4); AST(SGOT) 21 U/L (15-37); Alanine Aminotransfer ALT/SGPT 27 U/L (16-61); Albumin, Serum 2.4 g/dL (3.2-5.0); Alkaline Phosphatase 50 U/L (45-117); Anion Gap 7 (5-15); BUN 41 mg/dL (7-18); Calcium,Total 8.1 mg/dL (8.5-10.1); Chloride 111 mmol/L (98-107); Cholesterol 98 mg/dL (200); Creatinine, Serum 1.86 mg/dL (0.70-1.30); EST Glomerular Filtration Rate 40 mL/min (>60); Est Glom Filt Rate - Afr Amer 48 mL/min (>60); Globulin 3.7 g/dL (2.2-4.2); Glucose 115 mg/dL (74-106); High Density Lipoprotein 9 mg/dL; Protein, Total 6.1 g/dL (6.4-8.2); Sodium Level 142 mmol/L (136-145); Triglycerides 386 mg/dL; Very Low Density Lipoprotein 77 mg/dL (5-40)
--- NOTE | 2022-03-06 06:42 | MRI_ITS ---
EXAM: MR HEAD WITHOUT INTRAVENOUS CONTRAST CLINICAL INDICATION: CVA TECHNIQUE: Multiplanar and multisequence MR images of the brain were obtained without intravenous contrast. This report was created using [employer] report generation technology. COMPARISON: CT head without contrast 03/06/2022. FINDINGS: BRAIN AND EXTRA-AXIAL SPACES: Unremarkable. No intra- or extra-axial hemorrhage. No evidence of acute infarct. No intracranial mass or mass effect. There is preservation of the cuevas/white matter interface. Posterior fossa structures are unremarkable. Ventricles are appropriate for age. No hydrocephalus. Basal cisterns are patent. SELLA: Unremarkable. Normal sella turcica, pituitary gland, infundibular stalk, optic chiasm and hypothalamus. AUDITORY SYSTEM: Unremarkable. The internal auditory canals are patent. BONES/JOINTS: Unremarkable. No discrete lytic or blastic abnormalities. SINUSES: Mucous retention cyst in the right paramedian retropharyngeal space of the nasopharynx. Normal paranasal sinuses. MASTOID AIR CELLS: Unremarkable as visualized. Clear. ORBITS: Unremarkable as visualized. Both globes, extraocular muscles, optic nerves and retrobulbar fat appear unremarkable. VASCULATURE: Unremarkable as visualized. Normal flow voids in the major intracranial circulation. MRI/Brain without Contrast IMPRESSION: No MRI evidence of acute or subacute ischemic infarct or acute intracranial abnormality. Electronically Signed: Alden Olson MD at 11:32 EST ,
--- NOTE | 2022-03-06 07:00 | US_ITS ---
INDICATION: ANJALI EXAMINATION: Ultrasound US Kidney(s) limited (eg, kidney(s) only) TECHNIQUE: Staley scale and color doppler images were obtained of the kidneys. COMPARISON: None. FINDINGS: RIGHT KIDNEY: The right kidney measures 12.3 cm in length.. There is no hydronephrosis. No shadowing calculus, focal lesion or perinephric collection is demonstrated. LEFT KIDNEY: The left kidney measures 14.5 cm in length. There is no hydronephrosis. No shadowing calculus, focal lesion or perinephric collection is demonstrated. US/Kidney and Bladder IMPRESSION: Within normal limits renal ultrasound. Electronically Signed: Susna Abraham MD at 8:12 EST ,
[2022-03-06 07:02] LABS: Anisocytosis 1+; Macrocytosis 1+; Platelet Estimate SLT DEC (ADEQ)
--- NOTE | 2022-03-06 07:26 | EX.PCM.CONCC ---
Assessment & Plan Assessment/Plan (1) Acute hypoxemic respiratory failure: (2) Sepsis: PLAN: Plan RECOMMENDATIONS: 1. Await EEG. Continue Keppra 2. Agree with broaden antibiotics pending cultures 3. Initiate Precedex 4. Monitor respiratory status, may need to attempt BiPAP if develops respiratory muscle fatigue versus intubation 5. Wean supplemental oxygen as tolerated 6. Likely sedate with Precedex over propofol given triglycerides if intubated 7. Monitor for allergic reaction IMPRESSIONS: 1. Sepsis secondary to UTI Patient with findings consistent with UTI on presentation. Unclear if this has led to seizure with aspiration. Patient did have evidence of acute kidney injury with elevated creatinine and elevated lactate as markers of endorgan damage. Patient has received significant fluid resuscitation. Cannot exclude the need for initiation of pressors in the near future. Patient has been broadened on antibiotic spectrum. 2. Acute hypoxic respiratory failure Patient not on supplemental oxygen at baseline, but does have a long smoking history with concerns for COPD. Patient may have had an aspiration event related to seizure activity. Patient is currently on 8 L nasal cannula. Cannot exclude the need for intubation moving forward. Patient did receive significant fluid resuscitation associated with problem #1. Patient is tentatively a full code, but this has to be verified with family. 3. Possible seizure activity Patient with multiple events of possible seizure activity. Unfortunately, there has been some reference that patient has a history of pseudoseizures. Prolactin level was within normal limits on presentation. EEG has been ordered to rule out status epilepticus. We will continue with seizure precautions for now. Patient should remain on Keppra in the interim. 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 MRI has been ordered. 4. History of stroke/chronic pain syndrome/anxiety/depression/poor history Complicates care, management, recovery and prognosis. Likely not able to take p.o. medications at this time. Await neuro work-up. May use Seroquel long-term, but will stick with Precedex in the near term. TIME: 32 minutes critical care time spent addressing patient's sepsis, acute hypoxic respiratory failure, seizure activity, review of all data and collaboration with care team HPI Consult Data Date of Consult: 03/06/22 HPI Narrative Reason for Consultation: Sepsis HPI Narrative: ANDREA MCLAUGHLIN is a 56 M, with past medical history listed below, who presents to [facility] on 03/05/2022 secondary to altered mental status. Patient reportedly was found by EMS after having a seizure in a chair. Patient was reportedly last seen normal at approximately 8 PM on the day before. EMS had reported the patient appeared to be postictal and was nonverbal and not following commands. Speech was described as unintelligible but patient was able to follow some commands such as closing his eyes. In the ER, patient was afebrile, but tachycardic as high as 118 bpm. Patient did require supplemental oxygen to maintain saturations. Patient did have some lower blood pressures with a documented blood pressure of 94/54. Laboratory data showed a white blood cell count of 7.6, hemoglobin of 11.9 and platelets of 161. Coagulation studies and liver function studies were within normal limits. Chemistry showed an elevated creatinine of 3.24 with a lactate of 5.4. UA was consistent with a possible urinary tract infection. Imaging studies showed a brain CT with minor microvascular changes, but no acute issues. 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 Chest x-ray showed bilateral infiltrates. Patient's NIH at that time was documented as a 6. Patient was evaluated for tPA, but no large vessel occlusion was noted. Patient reportedly has a history of pseudoseizures, so there was more concerned about aspiration with sepsis. Patient was given clindamycin and Rocephin along with supplemental oxygen and admitted to the PCU. While in the PCU, patient was transferred to the intensive care unit secondary to hypotension following 4 L of normal saline. Patient's antibiotics were expanded to vancomycin and Zosyn. On arrival to the intensive care unit, there was questionable seizure-like activity for approximately 7 minutes. Patient was given 2 mg of Ativan with improvement. A loading dose of Keppra was given. Patient already had an EEG ordered that had not been completed yet. Prolactin level was subsequently normal. Since being in the intensive care unit, no further seizure activity has been noted. Patient has been very impulsive trying to set up. Patient is not following commands at this time. Patient has required increased FiO2 to maintain saturations. Patient does have a wet cough. Unable to obtain review of systems secondary to patient's mental status. [facility] Medical History GERD (gastroesophageal reflux disease) Headache High cholesterol High triglycerides History of emotional problems History of high blood pressure Migraines Osteoarthritis Pseudoseizures Seasonal allergies Vision problems Home Medications Heavy duty shower chair #1 ea 09/27/21 [Rx Last Taken Unknown] acetaminophen 650 mg tablet,extended release (Tylenol Arthritis Pain) 650 mg PO TID Check with primary doctor 09/27/21 [History Last Taken Unknown] atorvastatin 20 mg tablet (Lipitor) 20 mg PO DAILY Check with primary doctor 09/27/21 [History Last Taken Unknown] baclofen 20 mg tablet See Rx Instructions .Route .COMPLEX #450 tabs 09/27/21 [Rx Last Taken Unknown] clopidogrel 75 mg tablet (Plavix) 75 mg PO DAILY #90 tabs 09/27/21 [Rx Last Taken Unknown] doxazosin 8 mg tablet 8 mg PO DAILY Check with primary doctor 09/27/21 [History Last Taken Unknown] duloxetine 60 mg capsule,delayed release 60 mg PO BID Check with primary doctor 09/27/21 [History Last Taken Unknown] fenofibrate 160 mg tablet 160 mg PO DAILY Check with primary doctor 09/27/21 [History Last Taken Unknown] flurbiprofen 100 mg tablet 100 mg PO TID PRN pain #270 tabs 09/27/21 [Rx Last Taken Unknown] lisinopril 20 mg tablet 20 mg PO DAILY Check with primary doctor 09/27/21 [History Last Taken Unknown] multivitamin (Multiple Vitamins tablet) 1 tab PO DAILY Check with primary doctor 09/27/21 [History Last Taken Unknown] olanzapine 7.5 mg tablet 7.5 mg PO QAM #90 tabs 09/27/21 [Rx Last Taken Unknown] omeprazole 40 mg capsule,delayed release 40 mg PO DAILY #90 caps 09/27/21 [Rx Last Taken Unknown] ropinirole 4 mg tablet 4 mg PO BID #180 tabs 09/27/21 [Rx Last Taken Unknown] diltiazem HCl 120 mg capsule,extended release 24 hr 120 mg PO BID Check with primary doctor 03/05/22 [History Last Taken Unknown] Allergy/AdvReac Type Severity Reaction Status Date / Time codeine Allergy Hives Verified 03/05/22 13:04 Iodinated Contrast Media Allergy Hives Verified 03/05/22 12:51 [contrast dye - iodinated] Penicillins Allergy Hives Verified 03/05/22 13:01 shellfish derived Allergy Hives Verified 03/05/22 13:04 Family History Sister Anemia Mother Arthritis Hypertension Father Arthritis Hypertension High cholesterol Grandmother Depression Heart disease Thyroid disorder Surgical History H/O: vasectomy History of ankle surgery History of appendectomy History of tonsillectomy Social History Smoking Status: Current every day smoker tobacco type: cigarettes second hand exposure: Yes alcohol intake: current substance use type: does not use [place]/scientologist: Sikhism seatbelt use: always ROS Review of Systems ROS Unobtainable: due to mental status Physical Exam Const Constitutional Narrative: Appears older than stated age. Actively snoring. Attempts to get out of bed, but not opening eyes. Diaphoretic. General Appearance: lethargic HEENT normocephalic, head/scalp atraumatic and moist oral mucous membranes HEENT Narrative: Edentulous Eyes PERRL and EOMs intact bilaterally Neck no lymphadenopathy General: trachea midline Chest Chest: abnormal inspection of the chest increased A-P diameter Resp no use of accessory muscles Effort and Inspection: labored Auscultation: rales and diminished lung sounds Cardio regular rate, regular rhythm, S1 normal heart sound, S2 normal heart sound, no murmurs, no rub and no gallops GI normal to inspection, nondistended, normoactive bowel sounds, soft to palpation, non-tender and non-distended Extremity normal to inspection Skin no rashes or lesions noted Neuro Neuro Narrative: Not actively holding up his left arm, but does use his left arm to try to pull himself up in bed. Sensation appears to be intact. Psych Mood & Affect: flat affect Lab / Micro Data Attestation: I reviewed the patient's lab results. Result Diagrams: 03/06/22 05:40 03/06/22 05:40 Labs: Laboratory Results - last 24 hr 03/05/22 12:15: Total Bilirubin 0.90, Direct Bilirubin 0.49 H, AST 26, ALT 30, Alkaline Phosphatase 44 L, Total Protein 6.3 L, Albumin 2.8 L, Globulin 3.5 03/05/22 12:15: WBC 7.6, RBC 4.00 L, Hgb 11.9 L, Hct 36.8 L, MCV 92.0, MCH 29.8, MCHC 32.3, RDW Std Deviation 54.5 H, RDW Coeff of Keith 16.0 H, Plt Count 161, MPV 10.0, Neut % (Auto) Not Reportable, Absolute Neuts (auto) 5.9, Absolute Lymphs (auto) 0.76 L, Total Counted 100, Neutrophils % (Manual) 56, Band Neutrophils % 22 H, Lymphocytes % (Manual) 10 L, Monocytes % (Manual) 2, Metamyelocytes % 7 H, Myelocytes % 3 H, Diff Path Review August, Platelet Estimate ADEQUATE, RBC Morphology NORM C+C 03/05/22 12:15: PT 17.0 H, INR 1.4, APTT 33.4 03/05/22 12:15: Sodium 135 L, Potassium 4.0, Chloride 100, Carbon Dioxide 22.0, Anion Gap 13, BUN 34 H, Creatinine 3.24 H, Estim Creat Clear Calc 30.43, Est GFR (MDRD) Af Amer 26 L, Est GFR (MDRD) Non-Af 21 L, BUN/Creatinine Ratio 10.5, Glucose 116 H, Calcium 8.7, Troponin I High Sens 9 03/05/22 12:15: Lactic Acid 5.4 H* 03/05/22 13:32: Urine Color Estrellita, Urine Clarity Clear, Urine pH 5.0, Ur Specific [place] 1.025, Urine Protein 30 H, Urine Glucose (UA) Normal, Urine Ketones 5 H, Urine Occult Blood 10 H, Urine Nitrite Positive H, Urine Bilirubin 3 H, Urine Urobilinogen 4 H, Ur Leukocyte Esterase 25 H, Urine RBC 0-5 SEEN, Urine WBC 5-10 SEEN, Ur Squamous Epith Cells 0-5 SEEN, Urine Bacteria 1+, Hyaline Casts 10-25 SEEN, Fine Granular Casts 0-5 SEEN, Waxy Casts 0-5 SEEN H, Urine Mucus 1+ 03/05/22 16:25: Lactic Acid 2.8 H* 03/05/22 17:00: Troponin I High Sens 12 03/05/22 18:31: POC Glucose 102 03/05/22 18:55: Ur Random Sodium < 5, Urine Creatinine 285.00 11/27/22 23:15: POC Glucose 104 03/05/22 23:40: WBC 6.2, RBC 3.97 L, Hgb 11.5 L, Hct 36.7 L, MCV 92.4, MCH 29.0, MCHC 31.3 L, RDW Std Deviation 55.9 H, RDW Coeff of Keith 16.3 H, Plt Count 164, MPV 9.8, Immature Gran % (Auto) 1.300 H, Neut % (Auto) 88.3 H, Lymph % (Auto) 6.6 L, [place] % (Auto) 3.0, Eos % (Auto) 0.0, Baso % (Auto) 0.8, Absolute Neuts (auto) 5.5, Absolute Lymphs (auto) 0.41 L, Nucleated RBC % 0, Atypical Lymphocytes 1+, Anisocytosis 1+ 03/05/22 23:40: Sodium 142, Potassium 4.2, Chloride 110 H, Carbon Dioxide 23.0, Anion Gap 9, BUN 38 H, Creatinine 2.17 H, Estim Creat Clear Calc 45.43, Est GFR (MDRD) Af Amer 41 L, Est GFR (MDRD) Non-Af 34 L, BUN/Creatinine Ratio 17.5, Glucose 107 H, Calcium 8.3 L, Total Bilirubin 0.60, AST 22, ALT 30, Alkaline Phosphatase 50, Total Creatine Kinase 79, Total Protein 6.4, Albumin 2.6 L, Globulin 3.8, Albumin/Globulin Ratio 0.7 L, Prolactin 7.4 03/05/22 23:40: Lactic Acid 2.4 H* 03/05/22 23:40: Ammonia < 10.0 L 03/05/22 23:45: MRSA (PCR) Negative 03/06/22 05:40: WBC 7.4, RBC 4.02 L, Hgb 11.9 L, Hct 39.4 L, MCV 98.0 H D, MCH 29.6, MCHC 30.2 L, RDW Std Deviation 60.7 H, RDW Coeff of Keith 16.6 H, Plt Count 147 L, MPV 10.1, Immature Gran % (Auto) 0.300, Neut % (Auto) 90.9 H, Lymph % (Auto) 6.0 L, [place] % (Auto) 2.8, Eos % (Auto) 0.0, Baso % (Auto) 0.0, Absolute Neuts (auto) 6.7, Absolute Lymphs (auto) 0.44 L, Nucleated RBC % 0, Platelet Estimate SLT DEC, Anisocytosis 1+, Macrocytosis 1+ 03/06/22 05:40: Sodium 142, Potassium 4.0, Chloride 111 H, Carbon Dioxide 24.0, Anion Gap 7, BUN 41 H, Creatinine 1.86 H, Estim Creat Clear Calc 53.00, Est GFR (MDRD) Af Amer 48 L, Est GFR (MDRD) Non-Af 40 L, BUN/Creatinine Ratio 22.0 H, Glucose 115 H, Calcium 8.1 L, Total Bilirubin 0.60, AST 21, ALT 27, Alkaline Phosphatase 50, Total Protein 6.1 L, Albumin 2.4 L, Globulin 3.7, Albumin/Globulin Ratio 0.6 L, Triglycerides 386 H, Cholesterol 98, LDL Cholesterol 12, VLDL Cholesterol 77 H, HDL Cholesterol 9 L Micro: Microbiology 03/05/22 18:55 Urine, Random Legionella Antigen - Final 03/05/22 18:55 Urine, Random Streptococcus pneumoniae Antigen (M - Final ABG Data ABG results: ABG 03/05/22 23:51 Specimen Type ART Sample Site L Radial pH 7.36 Bicarbonate Actual 21.4 L Total CO2 23 Base Excess -4 L O2 Saturation 92 L ABG pCO2 38.2 ABG pO2 68 L [place] Test Positive O2 Delivery Device Cannula Liter Flow 6.0 Attestation: I personally reviewed and interpreted this ABG as follows: (Adequate ventilation with increased AA gradient) Radiology Impression Brain CT 03/05/22 12:23 IMPRESSION: 1. No acute intracranial abnormality. 2. Mild chronic microvascular changes. Aspect score 10 N.B. : The above Results were Read Back by Jed Galdamez MD to Deon Coffman AA, and understanding confirmed on 03/05/2022 12:16:00 (ET). Electronically Signed: Jed Galdamez MD at 12:15 EST , Head/Neck CTA 03/05/22 12:23 IMPRESSION: 1. 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 2. No intracranial artery aneurysm, dissection, stenosis or occlusion. 3. Right upper and lower lobe pneumonia. N.B. : The above Results were Read Back by Jed Galdamez MD to Deon Coffman MD, and understanding confirmed on 03/05/2022 12:39:56 (ET). Electronically Signed: Jed Galdamez MD at 12:38 EST , Chest X-Ray 03/05/22 13:02 IMPRESSION: Bilateral pneumonia. Electronically Signed: Jed Galdamez MD at 13:29 EST , Chest X-Ray 03/05/22 23:35 IMPRESSION: Bilateral opacities consistent with infection, similar compared to the prior. Electronically Signed: Hima Eden MD at 0:01 EST , Brain CT 03/06/22 04:23 IMPRESSION: No intracranial hemorrhage or acute territorial infarction. Age-indeterminate nasal fracture. Electronically Signed: Hima Eden MD at 5:54 EST , Charges/Coding Procedures Hospitalists Procedures: [id number] Critial Care 1st Hr
--- NOTE | 2022-03-06 09:47 | CASEMGMT ---
MEHRAN called patient's sister, Marii. MEHRAN introduced self and role at [facility]. MEHRAN asked Marii if she has Healthcare Power of [place] paperwork for patient. Marii states she has paperwork and will bring in this afternoon. MEHRAN asked if patient was still and Marii said patient has been for years. MEHRAN again asked Marii to please bring in this paperwork and she will later today. Gabby Alonso DEAN OF STUDENT SERVICES REJI
[2022-03-06] MEDS: Enoxaparin 40 MG/0.4 ML Syringe SC (11:16)
[2022-03-06 13:06] LABS: Pathologist Review Reviewed
--- NOTE | 2022-03-06 13:54 | TELEMED_ITS ---
[facility] Telemed has confirmed receipt of a request for visit. This document confirms receipt of the order initiating the consult. To find the results of the consultation, please view the patient's reports for the scanned Telemed Consult.
[2022-03-06] MEDS: Dexmedetomidine 1,000 mcg in 0.9% NS 240 mL 25.5 MCG CONT INF (14:05)
--- NOTE | 2022-03-06 19:15 | PN.HOSP_ITS ---
Subjective Subjective Patient was seen and examined today, he is currently on 3 L of O2 via nasal cannula, he appears to be comfortable at this time, I talked briefly with critical care about his medical care. His echocardiogram today showed an EF of 50% with mild pulmonary hypertension. Brain MRI today showed no evidence of acute or subacute ischemic infarct or acute intracranial abnormality. Objective Data Objective Data Vital Signs: Vital Signs Temp Pulse Resp BP Pulse Ox O2 Del Method O2 Flow Rate 97.9 F 81 18 125/81 H 96 Nasal Cannula 3 03/06/22 16:00 03/06/22 19:00 03/06/22 19:00 03/06/22 19:00 03/06/22 19:00 03/06/22 19:00 03/06/22 19:00 Oxygen Flow Rate (L/min) 3 Oxygen Delivery Method Nasal Cannula Weight: 127.6 kg Body Mass Index (BMI) 34.9 Intake & Output: Intake and Output for Last 24 Hours 03/04/22 03/05/22 03/06/22 23:59 23:59 23:59 Intake Total 5435 / 5435 1063.80 / 1063.80 Output Total 500 / 500 1110 / 1110 Balance 4935 / 4935 -46.20 / -46.20 Lab / Micro Data Result Diagrams: 03/06/22 05:40 03/06/22 05:40 Labs: Laboratory Results - last 24 hr 03/05/22 12:15: Diff Path Review Reviewed 03/05/22 18:55: Ur Random Sodium < 5, Urine Creatinine 285.00 03/05/22 23:15: POC Glucose 104 03/05/22 23:40: WBC 6.2, RBC 3.97 L, Hgb 11.5 L, Hct 36.7 L, MCV 92.4, MCH 29.0, MCHC 31.3 L, RDW Std Deviation 55.9 H, RDW Coeff of Keith 16.3 H, Plt Count 164, MPV 9.8, Immature Gran % (Auto) 1.300 H, Neut % (Auto) 88.3 H, Lymph % (Auto) 6.6 L, [place] % (Auto) 3.0, Eos % (Auto) 0.0, Baso % (Auto) 0.8, Absolute Neuts (auto) 5.5, Absolute Lymphs (auto) 0.41 L, Nucleated RBC % 0, Atypical Lym phocytes 1+, Anisocytosis 1+ 03/05/22 23:40: Sodium 142, Potassium 4.2, Chloride 110 H, Carbon Dioxide 23.0, Anion Gap 9, BUN 38 H, Creatinine 2.17 H, Estim Creat Clear Calc 45.43, Est GFR (MDRD) Af Amer 41 L, Est GFR (MDRD) Non-Af 34 L, BUN/Creatinine Ratio 17.5, Glucose 107 H, Calcium 8.3 L, Total Bilirubin 0.60, AST 22, ALT 30, Alkaline Phosphatase 50, Total Creatine Kinase 79, Total Protein 6.4, Albumin 2.6 L, Globulin 3.8, Albumin/Globulin Ratio 0.7 L, Prolactin 7.4 03/05/22 23:40: Lactic Acid 2.4 H* 03/05/22 23:40: Ammonia < 10.0 L 03/05/22 23:45: MRSA (PCR) Negative 03/06/22 05:40: WBC 7.4, RBC 4.02 L, Hgb 11.9 L, Hct 39.4 L, MCV 98.0 H D, MCH 29.6, MCHC 30.2 L, RDW Std Deviation 60.7 H, RDW Coeff of Keith 16.6 H, Plt Count 147 L, MPV 10.1, Immature Gran % (Auto) 0.300, Neut % (Auto) 90.9 H, Lymph % (Auto) 6.0 L, [place] % (Auto) 2.8, Eos % (Auto) 0.0, Baso % (Auto) 0.0, Absolute Neuts (auto) 6.7, Absolute Lymphs (auto) 0.44 L, Nucleated RBC % 0, Platelet Estimate SLT DEC, Anisocytosis 1+, Macrocytosis 1+ 03/06/22 05:40: Sodium 142, Potassium 4.0, Chloride 111 H, Carbon Dioxide 24.0, Anion Gap 7, BUN 41 H, Creatinine 1.86 H, Estim Creat Clear Calc 53.00, Est GFR (MDRD) Af Amer 48 L, Est GFR (MDRD) Non-Af 40 L, BUN/Creatinine Ratio 22.0 H, Glucose 115 H, Calcium 8.1 L, Total Bilirubin 0.60, AST 21, ALT 27, Alkaline Phosphatase 50, Total Protein 6.1 L, Albumin 2.4 L, Globulin 3.7, Albumin/Gl obulin Ratio 0.6 L, Triglycerides 386 H, Cholesterol 98, LDL Cholesterol 12, VLDL Cholesterol 77 H, HDL Cholesterol 9 L Micro: Microbiology 03/05/22 18:55 Urine, Random Legionella Antigen - Final 03/05/22 18:55 Urine, Random Streptococcus pneumoniae Antigen (M - Final ABG Data ABG results: ABG 03/05/22 23:51 Specimen Type ART Sample Site L Radial pH 7.36 Bicarbonate Actual 21.4 L Total CO2 23 Base Excess -4 L O2 Saturation 92 L ABG pCO2 38.2 ABG pO2 68 L [place] Test Positive O2 Delivery Device Cannula Liter Flow 6.0 Radiography Diagnostic Testing: Radiology Impression Echocardiogram 03/05/22 16:46 Interpretation Summary Normal LV size. Left ventricular systolic function is lower limits of normal. The estimated ejection fraction is 50 %. Bubble contrast study negative for right to left interatrial shunt. Pulmonary artery systolic pressure is 32 mmHg. Contrast injection was performed. Ordering Physician: Martin Heredia Performed By: Tanisha Wilkinson, RDCS, RVT Chest X-Ray 03/05/22 23:35 IMPRESSION: Bilateral opacities consistent with infection, similar compared to the prior. Electronically Signed: Hima Eden MD at 0:01 EST , Brain CT 03/06/22 04:23 IMPRESSION: No intracranial hemorrhage or acute territorial infarction. Age-indeterminate nasal fracture. Electronically Signed: Hima Eden MD at 5:54 EST , Brain MRI 03/06/22 06:42 IMPRESSION: No MRI evidence of acute or subacute ischemic infarct or acute intracranial abnormality. Electronically Signed: Alden Olson MD at 11:32 EST Reading Location ID and State: [facility] , Service support , Physical Exam Const alert, oriented x3, no apparent distress, average body habitus and healthy appearing General Appearance: cooperative, well kempt and well developed Orientation / Consciousness: awake, oriented to person, oriented to place and oriented to time HEENT normocephalic, head/scalp atraumatic and moist oral mucous membranes Eyes PERRL, EOMs intact bilaterally and conjunctivae normal Neck supple, no JVD, thyroid normal and no carotid bruits General: trachea midline Resp normal respiratory effort, no retractions and no use of accessory muscles Resp Narrative: Sounds are distant bilaterally Auscultation: Negative for rales, rhonchi or wheezes Cardio regular rate, regular rhythm, S1 normal heart sound, S2 normal heart sound, no murmurs, no rub and no gallops GI normal to inspection, nondistended, normoactive bowel sounds, soft to palpation, non-tender and non-distended Extremity no clubbing, cyanosis or edema Skin no rashes or lesions noted General Skin Exam: no breakdown Neuro oriented x3, CN's II-XII intact bilaterally, no focal motor deficits and no sensory deficits noted Sensorium / Orientation: awake, alert, oriented to person and oriented to place Speech: speech normal Psych affect normal Assessment & Plan Assessment/Plan (1) Sepsis: PLAN: Plan 1. Acute sepsis-secondary to either UTI and/or pneumonia-patient will remain on Zithromax and Zosyn for now, critical care is participating in his care #2 possible seizure-patient remains on IV Keppra No. 3 #3 acute kidney injury-patient's creatinine today was 1.86, labs will continue to be monitored #4 acute hypoxic respiratory failure-patient is now on 3 L via nasal cannula, pulse ox will be monitored, pulmonary medicine is participating in his care #5 cerebrovascular disease-patient's MRI showed no evidence of acute stroke, he remains on Plavix and aspirin at this time #6 hyperlipidemia-patient remains on atorvastatin #7 encephalopathy-etiology unclear, patient is currently on Precedex Charges/Coding Visit Charges Inpatient E&M: 32481 Subs Hosp L2
[2022-03-07] VITALS (25 sets, daily range): BP systolic 101–168; BP diastolic 60–104; PULSE 53–93; RESP 16–31; TEMP 36.1–37.1; O2SAT 89–100; BMI 34.9
[2022-03-07] MEDS: Dexmedetomidine 1,000 mcg in 0.9% NS 240 mL 22.3 MCG CONT INF (00:44)
[2022-03-07 05:45] LABS: Absolute Lymphocyte Count 1.03 X10^3/uL (0.83-4.51); Absolute Neutrophil Count 6.3 X10^3/uL (2.0-7.7); Basophil# 0.03 X10^3/uL; Basophil% 0.4 % (0-1); Eosinophil# 0.03 X10^3/uL; Eosinophils% 0.4 % (0-5); Hematocrit 36.6 % (40-54); Hemoglobin 11.2 g/dL (13.0-16.5); Lymphocyte # 1.03 X10^3/ul (0.83-4.51); Lymphocyte % 13.1 % (19-41); Mean Corp Hgb Conc 30.6 g/dL (32-36); Mean Corpuscular Hgb 28.6 pg (27.0-32.0); Mean Corpuscular Volume 93.6 fL (80-94); Mean Platelet Vol. 10.5 fl (6.2-12.0); Monocyte# 0.41 X10^3/uL; Monocyte% 5.2 % (0-10); NRBC Flagged by Analyzer 0 % (0-5); Neutrophil # 6.33 X10^3/uL (2.7-7.7); Neutrophil % 80.3 % (47-70); Platelet Count 211 K/mm3 (150-450); RBC Distribution Width CV 16.4 % (11.6-14.6); RBC Distribution Width SD 56.6 fl (35.1-43.9); Red Blood Count 3.91 M/mm3 (4.6-6.2); White Blood Count 7.9 K/mm3 (4.4-11.0)
[2022-03-07 05:57] LABS: ALB/GLOB Ratio 0.6 RATIO (0.9-2.4); AST(SGOT) 11 U/L (15-37); Alanine Aminotransfer ALT/SGPT 21 U/L (16-61); Albumin, Serum 2.3 g/dL (3.2-5.0); Alkaline Phosphatase 50 U/L (45-117); Anion Gap 6 (5-15); BUN 36 mg/dL (7-18); BUN/Creat Ratio 28.8 RATIO (10-20); Calcium,Total 8.6 mg/dL (8.5-10.1); Chloride 112 mmol/L (98-107); Creatinine, Serum 1.25 mg/dL (0.70-1.30); EST Glomerular Filtration Rate 63 mL/min (>60); Est Glom Filt Rate - Afr Amer 77 mL/min (>60); Estimated Creatinine Clearance 78.87 ml/min; Globulin 4.1 g/dL (2.2-4.2); Glucose 107 mg/dL (74-106); Magnesium 2.4 mg/dL (1.6-2.6); Phosphorus 3.5 mg/dL (2.5-4.9); Potassium 3.8 mmol/L (3.5-5.1); Protein, Total 6.4 g/dL (6.4-8.2); Sodium Level 145 mmol/L (136-145)
--- NOTE | 2022-03-07 06:46 | PN.CC_ITS ---
Assessment & Plan Assessment/Plan (1) Acute hypoxemic respiratory failure: (2) Sepsis: PLAN: Plan RECOMMENDATIONS: 1. Continue Keppra for now 2. Agree with broaden antibiotics pending cultures 3. Titrate Precedex for agitation 4. Bedside swallow evaluation with reinitiation of baseline meds if possible 5. Wean supplemental oxygen as tolerated IMPRESSIONS: 1. Sepsis secondary to UTI Patient with findings consistent with UTI on presentation. Unclear if this has led to seizure with aspiration. Patient did have evidence of acute kidney injury with elevated creatinine and elevated lactate as markers of endorgan damage. Patient has received significant fluid resuscitation. Patient appears to be responding well to antibiotic therapy. Cultures have not had any growth to this point. Patient with acute kidney injury that has resolved. 2. Acute hypoxic respiratory failure Patient not on supplemental oxygen at baseline, but does have a long smoking history with concerns for COPD. Patient may have had an aspiration event related to seizure activity. Patient is currently on 3 L nasal cannula. Patient did receive significant fluid resuscitation associated with problem #1. Patient is tentatively a full code, but this has to be verified with family. 3. Possible seizure activity Patient with multiple events of possible seizure activity. Unfortunately, there has been some reference that patient has a history of pseudoseizures. Prolactin level was within normal limits on presentation. EEG shows severe slowing, but no epileptiform activity. We will continue with seizure precautions for now. Patient should remain on Keppra in the interim. CT/MRI do not show any acute cerebrovascular insults 4. History of stroke/chronic pain syndrome/anxiety/depression/poor history Complicates care, management, recovery and prognosis. Consider bedside swallow evaluation with reinitiation of baseline medications. Await neuro work- up. May use Seroquel long-term, but will stick with Precedex in the near term. Subjective Subjective Patient did okay from a hemodynamic standpoint. Patient does remain on Precedex secondary to impulsivity, but started to communicate this morning. This morning, patient was aggressive with staff asking for a glass of water. Patient does not have a recollection of coming to the hospital and is unable to provide additional history at this time. Objective Data Objective Data Vital Signs: Vital Signs Temp Pulse Resp BP Pulse Ox O2 Del Method O2 Flow Rate 36.1 C L 78 21 H 136/85 H 100 Nasal Cannula 3 03/07/22 04:00 03/07/22 05:00 03/07/22 05:00 03/07/22 05:00 03/07/22 05:00 03/07/22 05:00 03/07/22 05:00 Oxygen Flow Rate (L/min) 3 Oxygen Delivery Method Nasal Cannula Weight: 125 kg Body Mass Index (BMI) 34.9 Intake & Output: Intake and Output for Last 24 Hours 03/05/22 03/06/22 03/07/22 23:59 23:59 23:59 Intake Total 5435 / 5435 1259.62 / 1281.92 83.8 / 83.8 Output Total 500 / 500 1110 / 1310 900 / 900 Balance 4935 / 4935 149.62 / -28.08 -816.2 / -816.2 Lab / Micro Data Attestation: I reviewed the patient's lab results. Result Diagrams: 03/07/22 03:35 03/07/22 03:35 Labs: Laboratory Results - last 24 hr 03/05/22 12:15: Diff Path Review Reviewed 03/06/22 05:40: Platelet Estimate SLT DEC, Anisocytosis 1+, Macrocytosis 1+ 03/07/22 03:35: WBC 7.9, RBC 3.91 L, Hgb 11.2 L, Hct 36.6 L, MCV 93.6, MCH 28.6, MCHC 30.6 L, RDW Std Deviation 56.6 H, RDW Coeff of Keith 16.4 H, Plt Count 211, MPV 10.5, Immature Gran % (Auto) 0.600, Neut % (Auto) 80.3 H, Lymph % (Auto) 13.1 L, [place] % (Auto) 5.2, Eos % (Auto) 0.4, Baso % (Auto) 0.4, Absolute Neuts (auto) 6.3, Absolute Lymphs (auto) 1.03, Nucleated RBC % 0 03/07/22 03:35: Sodium 145, Potassium 3.8, Chloride 112 H, Carbon Dioxide 27.0, Anion Gap 6, BUN 36 H, Creatinine 1.25, Estim Creat Clear Calc 78.87, Est GFR (MDRD) Af Amer 77, Est GFR (MDRD) Non-Af 63, BUN/Creatinine Ratio 28.8 H, Glucose 107 H, Calcium 8.6, Phosphorus 3.5, Magnesium 2.4, Total Bilirubin 0.40, AST 11 L, ALT 21, Alkaline Phosphatase 50, Total Protein 6.4, Albumin 2.3 L, Globulin 4.1, Albumin/Globulin Ratio 0.6 L 03/07/22 05:55: Ammonia 15.0 Micro: Microbiology 03/05/22 18:55 Urine, Random Legionella Antigen - Final 03/05/22 18:55 Urine, Random Streptococcus pneumoniae Antigen (M - Final Radiography Diagnostic Testing: Radiology Impression Echocardiogram 03/05/22 16:46 Interpretation Summary Normal LV size. Left ventricular systolic function is lower limits of normal. The estimated ejection fraction is 50 %. Bubble contrast study negative for right to left interatrial shunt. Pulmonary artery systolic pressure is 32 mmHg. Contrast injection was performed. Ordering Physician: Martin Heredia Performed By: Tanisha Wiliknson, DILCIACS, RVT Brain MRI 03/06/22 06:42 IMPRESSION: No MRI evidence of acute or subacute ischemic infarct or acute intracranial abnormality. Electronically Signed: Alden Olson MD at 11:32 EST Reading Location ID and State: [facility] [facility] , Service support , EEG showed severe slowing with no epileptiform activity Physical Exam Const Constitutional Narrative: Appears older than stated age. Actively snoring. Attempts to get out of bed and does interact briefly. Diaphoretic. HEENT normocephalic, head/scalp atraumatic and moist oral mucous membranes Eyes PERRL and EOMs intact bilaterally Neck no lymphadenopathy General: trachea midline Chest Chest: abnormal inspection of the chest increased A-P diameter Resp no use of accessory muscles Auscultation: diminished lung sounds; Negative for rales, rhonchi or wheezes Cardio regular rate, regular rhythm, S1 normal heart sound, S2 normal heart sound, no murmurs, no rub and no gallops GI normal to inspection, nondistended, normoactive bowel sounds, soft to palpation, non-tender and non-distended Extremity normal to inspection Skin no rashes or lesions noted Neuro moves all extremities and no focal motor deficits Neuro Narrative: Spontaneous movement of all extremities. No focal motor deficits noted. Psych Activity / Motor Behavior: restless Mood & Affect: labile affect Charges/Coding Visit Charges Inpatient E&M: 14636 Subs Hosp L3
--- NOTE | 2022-03-07 06:47 | NURSING ---
Pt yelling and attempting to climb out of bed. Dr. Lamas and multiple staff members at bedside. Verbal order given by Dr. Lamas to increase precedex gtt @ this time to 1.5 mcg/kg/hr.
--- NOTE | 2022-03-07 07:20 | CPS ---
Patient sleeping soundly, PEP not done.
[2022-03-07] MEDS: Dexmedetomidine 1,000 mcg in 0.9% NS 240 mL 44.7 MCG CONT INF (09:00)
[2022-03-07] MEDS: Enoxaparin 40 MG/0.4 ML Syringe SC (10:51)
--- NOTE | 2022-03-07 11:18 | PCM.PN.HOSP ---
Subjective Subjective Patient was seen and examined today, he appears drowsy due to the fact he is on a Precedex drip. Patient had some aggressive behavior this morning and he was placed on Precedex. Patient remains afebrile today, his pulse ox is 93% on 2 L. Talked briefly with critical care about his medical condition, they are not sure that patient has a pneumonia or a UTI at this time. Objective Data Objective Data Vital Signs: Vital Signs Temp Pulse Resp BP Pulse Ox O2 Del Method O2 Flow Rate 97.9 F 69 23 H 152/93 H 93 Nasal Cannula 3 03/07/22 08:00 03/07/22 11:00 03/07/22 11:00 03/07/22 11:00 03/07/22 11:00 03/07/22 11:00 03/07/22 08:00 FiO2 2 03/07/22 11:00 Oxygen Flow Rate (L/min) 3 Oxygen Delivery Method Nasal Cannula Weight: 125 kg Body Mass Index (BMI) 34.9 Intake & Output: Intake and Output for Last 24 Hours 03/05/22 03/06/22 03/07/22 23:59 23:59 23:59 Intake Total 5435 / 5435 1259.62 / 1281.92 411.45 / 411.45 Output Total 500 / 500 1110 / 1310 900 / 900 Balance 4935 / 4935 149.62 / -28.08 -488.55 / -488.55 Lab / Micro Data Result Diagrams: 03/07/22 03:35 03/07/22 03:35 Labs: Laboratory Results - last 24 hr 03/05/22 12:15: Diff Path Review Reviewed 03/07/22 03:35: WBC 7.9, RBC 3.91 L, Hgb 11.2 L, Hct 36.6 L, MCV 93.6, MCH 28.6, MCHC 30.6 L, RDW Std Deviation 56.6 H, RDW Coeff of Keith 16.4 H, Plt Count 211, MPV 10.5, Immature Gran % (Auto) 0.600, Neut % (Auto) 80.3 H, Lymph % (Auto) 13.1 L, [place] % (Auto) 5.2, Eos % (Auto) 0.4, Baso % (Auto) 0.4, Absolute Neuts (auto) 6.3, Absolute Lymphs (auto) 1.03, Nucleated RBC % 0 03/07/22 03:35: Sodium 145, Potassium 3.8, Chloride 112 H, Carbon Dioxide 27.0, Anion Gap 6, BUN 36 H, Creatinine 1.25, Estim Creat Clear Calc 78.87, Est GFR (MDRD) Af Amer 77, Est GFR (MDRD) Non-Af 63, BUN/Creatinine Ratio 28.8 H, Glucose 107 H, Calcium 8.6, Phosphorus 3.5, Magnesium 2.4, Total Bilirubin 0.40, AST 11 L, ALT 21, Alkaline Phosphatase 50, Total Protein 6.4, Albumin 2.3 L, Globulin 4.1, Albumin/Globulin Ratio 0.6 L 03/07/22 05:55: Ammonia 15.0 Micro: Microbiology 03/05/22 13:32 Urine Catheter - Catheter Urine Culture - Final Culture exhibits no growth. 03/05/22 18:55 Urine, Random Legionella Antigen - Final 03/05/22 18:55 Urine, Random Streptococcus pneumoniae Antigen (M - Final Radiography Diagnostic Testing: Radiology Impression Echocardiogram 03/05/22 16:46 Interpretation Summary Normal LV size. Left ventricular systolic function is lower limits of normal. The estimated ejection fraction is 50 %. Bubble contrast study negative for right to left interatrial shunt. Pulmonary artery systolic pressure is 32 mmHg. Contrast injection was performed. Ordering Physician: Martin Heredia Performed By: Tanisha Wilkinson, RDCS, RVT Brain MRI 03/06/22 06:42 IMPRESSION: No MRI evidence of acute or subacute ischemic infarct or acute intracranial abnormality. Electronically Signed: Alden Olson MD at 11:32 EST , Renal Ultrasound 03/06/22 07:00 IMPRESSION: Within normal limits renal ultrasound. Electronically Signed: Susan Abraham MD at 8:12 EST , Physical Exam Narrative Patient is somnolent, he can be woken up with verbal stimuli, speech is somewhat slurred General Appearance: cooperative, well kempt and well developed Orientation / Consciousness: Patient is somnolent but awakens to verbal or tactile stimuli HEENT normocephalic, head/scalp atraumatic and moist oral mucous membranes Eyes PERRL, EOMs intact bilaterally and conjunctivae normal Neck supple, no JVD, thyroid normal and no carotid bruits General: trachea midline Resp normal respiratory effort, no retractions and no use of accessory muscles Resp Narrative: Sounds are distant bilaterally Auscultation: Negative for rales, rhonchi or wheezes Cardio regular rate, regular rhythm, S1 normal heart sound, S2 normal heart sound, no murmurs, no rub and no gallops GI normal to inspection, nondistended, normoactive bowel sounds, soft to palpation, non-tender and non-distended Extremity no clubbing, cyanosis or edema Skin no rashes or lesions noted General Skin Exam: no breakdown Neuro oriented x3, CN's II-XII intact bilaterally, no focal motor deficits and no sensory deficits noted Sensorium / Orientation: Patient is somnolent with some slurring of his speech Psych Patient is somnolent, he does answer some questions appropriately but has slurred speech l Assessment & Plan Assessment/Plan (1) Sepsis: PLAN: Plan 1. Acute sepsis-secondary to either UTI and/or pneumonia-patient will remain on Zithromax and Zosyn for now, critical care is participating in his care #2 possible seizure-patient remains on IV Keppra #3 acute kidney injury-resolved at this time #4 acute hypoxic respiratory failure-patient is now on 3 L via nasal cannula, pulse ox will be monitored, pulmonary medicine is participating in his care #5 cerebrovascular disease-patient's MRI showed no evidence of acute stroke, he remains on Plavix and aspirin at this time #6 hyperlipidemia-patient remains on atorvastatin #7 encephalopathy-etiology unclear, patient is currently on Precedex Charges/Coding Visit Charges Inpatient E&M: 62051 Subs Hosp L2
--- NOTE | 2022-03-07 13:15 | CASEMGMT ---
MACK MORALES called Marii almanza, for initial transition planning/care coordination assessment as patient is confused at this time. MACK MORALES introduced self and role at [facility]. Sister willing to participate in assessment and is able to answer all questions appropriately. Care providers, pharmacy, and demographics verified. Unsure of disposition at discharge, will monitor course of treatment and progress with therapy. Sister states she has no further needs or concerns at this time. CM to follow for discharge planning needs that may arise. PCP: Ronald Specialists: Ernesto neurologist Preferred [facility]acy: [facility] Insurance: [facility] Prescription Benefit: None Living Will/HPOA: yes, sister Marii Gibbs LNOK: sister Living Arrangements: Patient lives alone in a camper with 3 steps and railing. Patient is normally independent at home. Transportation: sister DME/C: Patient has cane, shower chair, and leg brace at home. Sister to bring in leg brace for patient to participate in therapy. Per sister patient smokes, vapes, and chew tobacco product, approximately 1-2PPD. Per sister cash is a everyday drinker. Disposition Plan: TBD by course of treatment and progress with therapy. Rehana VEGA, RN, CM
[2022-03-07] MEDS: Dexmedetomidine 1,000 mcg in 0.9% NS 240 mL 41.5 MCG CONT INF (14:46)
[2022-03-07] MEDS: Haloperidol Lactate 5 MG/ML Vial IV (20:10)
[2022-03-07] MEDS: Dexmedetomidine 1,000 mcg in 0.9% NS 240 mL 19.1 MCG CONT INF (21:32)
[2022-03-08] VITALS (27 sets, daily range): BP systolic 90–168; BP diastolic 72–91; PULSE 52–113; RESP 18–32; TEMP 36.3–37.1; O2SAT 89–98; BMI 34.9
[2022-03-08] MEDS: Haloperidol Lactate 5 MG/ML Vial IV (02:12)
[2022-03-08 04:11] LABS: Absolute Lymphocyte Count 1.17 X10^3/uL (0.83-4.51); Absolute Neutrophil Count 5.4 X10^3/uL (2.0-7.7); Basophil# 0.03 X10^3/uL; Basophil% 0.4 % (0-1); Eosinophil# 0.01 X10^3/uL; Eosinophils% 0.1 % (0-5); Hematocrit 37.1 % (40-54); Hemoglobin 11.4 g/dL (13.0-16.5); Lymphocyte # 1.17 X10^3/ul (0.83-4.51); Lymphocyte % 15.4 % (19-41); Mean Corp Hgb Conc 30.7 g/dL (32-36); Mean Corpuscular Hgb 28.4 pg (27.0-32.0); Mean Corpuscular Volume 92.5 fL (80-94); Mean Platelet Vol. 10.2 fl (6.2-12.0); Monocyte# 0.83 X10^3/uL; Monocyte% 10.9 % (0-10); NRBC Flagged by Analyzer 0 % (0-5); Neutrophil # 5.43 X10^3/uL (2.7-7.7); Neutrophil % 71.6 % (47-70); Platelet Count 217 K/mm3 (150-450); RBC Distribution Width CV 16.4 % (11.6-14.6); RBC Distribution Width SD 56.1 fl (35.1-43.9); Red Blood Count 4.01 M/mm3 (4.6-6.2); White Blood Count 7.6 K/mm3 (4.4-11.0)
[2022-03-08 04:25] LABS: Anion Gap 6 (5-15); BUN 25 mg/dL (7-18); BUN/Creat Ratio 25.1 RATIO (10-20); Calcium,Total 8.5 mg/dL (8.5-10.1); Chloride 116 mmol/L (98-107); EST Glomerular Filtration Rate 82 mL/min (>60); Est Glom Filt Rate - Afr Amer 100 mL/min (>60); Estimated Creatinine Clearance 98.58 ml/min; Glucose 122 mg/dL (74-106); Potassium 3.6 mmol/L (3.5-5.1); Sodium Level 149 mmol/L (136-145)
--- NOTE | 2022-03-08 06:18 | EKG12_ITS ---
Test Reason : AM EKG Blood Pressure : / mmHG Vent. Rate : 055 BPM Atrial Rate : 055 BPM P-R Int : 146 ms QRS Dur : 088 ms QT Int : 440 ms P-R-T Axes : 053 051 049 degrees QTc Int : 420 ms Sinus bradycardia with marked sinus arrhythmia Otherwise normal ECG When compared with ECG of 05-MAR-2022 18:06, Sinus rhythm has replaced Atrial fibrillation Vent. rate has decreased BY 72 BPM Nonspecific T wave abnormality no longer evident in Inferior leads Confirmed by SIS QUEZADA MD ([id number]), editorial manager NICKIE RODARTE ([id number]) on 03/08/2022 9:20:17 AM Referred By: DAVID Confirmed By:SIS QUEZADA MD
--- NOTE | 2022-03-08 06:22 | PCM.PN.INT ---
Assessment & Plan Assessment/Plan (1) Acute hypoxemic respiratory failure: (2) Sepsis: PLAN: Plan RECOMMENDATIONS: 1. Discontinue Precedex. 2. Continue empiric antimicrobials. 3. Start D5W. 4. Continue Keppra as ordered. 5. Continue as needed Haldol. 6. Wean supplemental oxygen to maintain saturations at or above 90%. 7. Reevaluation by speech therapy today. IMPRESSIONS: 1. Sepsis secondary to UTI +/- aspiration pneumonia Patient with findings consistent with UTI on presentation. Unclear if this has led to seizure with aspiration. Patient did have evidence of acute kidney injury with elevated creatinine and elevated lactate as markers of endorgan damage. Patient has received adequate fluid resuscitation. Patient appears to be responding well to antibiotic therapy. Cultures have not had any growth to this point. Patient with acute kidney injury that has resolved. 2. Acute hypoxic respiratory failure Patient not on supplemental oxygen at baseline, but does have a long smoking history with concerns for COPD. Patient may have had an aspiration event related to seizure activity. Continue to wean supplemental oxygen to maintain saturations at or above 90%. Continue antimicrobials as noted above. 3. Possible seizure activity Patient with multiple events of possible seizure activity. Unfortunately, there has been some reference that patient has a history of pseudoseizures. EEG shows severe slowing, but no epileptiform activity. We will continue with seizure precautions for now. Patient should remain on Keppra in the interim. CT/MRI do not show any acute cerebrovascular insults. 4. Hypernatremia Plan to initiate D5W this morning. Continue to monitor electrolytes daily. Advance diet if cleared by speech therapy. 5. History of stroke/chronic pain syndrome/anxiety/depression/poor history Complicates care, management, recovery and prognosis. Consider restarting baseline home medications if cleared by speech therapy for p.o. intake. This note was generated with [employer] dictation software. It may contain incorrect words, spelling, and punctuation that were not noted in checking the note before signing. Subjective Subjective The patient was seen and examined at the bedside this morning. Events from the last 24 hours have been reviewed. The patient is currently afebrile, hemodynamically stable and maintaining appropriate oxygen saturations on 4 L/min nasal cannula. He is currently documented to be overall net +3.2 L for the hospitalization. Sodium is elevated at 149 this morning with a chloride of 116. The patient has a pending reevaluation by speech therapy this morning. Objective Data Objective Data The patient's most recent lab work, culture data and imaging studies have all been personally reviewed. Surface echocardiogram demonstrated normal LV size and function with an ejection fraction of 50%. Pulmonary artery systolic pressure was estimated to be 32 mmHg. Infectious work-up has been unrevealing to date. Vital Signs: Vital Signs Temp Pulse Resp BP Pulse Ox O2 Del Method O2 Flow Rate 98.2 F 53 L 29 H 146/89 H 96 Nasal Cannula 4 03/08/22 04:00 03/08/22 06:00 03/08/22 06:00 03/08/22 06:00 03/08/22 06:00 03/08/22 06:00 03/08/22 06:00 FiO2 3 03/07/22 10:00 Oxygen Flow Rate (L/min) 4 Oxygen Delivery Method Nasal Cannula Weight: 270 lb 1.06 oz Body Mass Index (BMI) 34.9 Intake & Output: Intake and Output for Last 24 Hours 03/06/22 03/07/22 03/08/22 23:59 23:59 23:59 Intake Total 1259.62 / 1281.92 1408.44 / 1427.54 164.6 / 164.6 Output Total 1110 / 1310 2250 / 2850 1200 / 1200 Balance 149.62 / -28.08 -841.56 / -1422.46 -1035.4 / -1035.4 Lab / Micro Data Attestation: I reviewed the patient's lab results. Result Diagrams: 03/08/22 04:00 03/08/22 04:00 Labs: Laboratory Results - last 24 hr 03/07/22 05:55: Ammonia 15.0 03/08/22 04:00: WBC 7.6, RBC 4.01 L, Hgb 11.4 L, Hct 37.1 L, MCV 92.5, MCH 28.4, MCHC 30.7 L, RDW Std Deviation 56.1 H, RDW Coeff of Keith 16.4 H, Plt Count 217, MPV 10.2, Immature Gran % (Auto) 1.600 H, Neut % (Auto) 71.6 H, Lymph % (Auto) 15.4 L, [place] % (Auto) 10.9 H, Eos % (Auto) 0.1, Baso % (Auto) 0.4, Absolute Neuts (auto) 5.4, Absolute Lymphs (auto) 1.17, Nucleated RBC % 0 03/08/22 04:00: Sodium 149 H, Potassium 3.6, Chloride 116 H, Carbon Dioxide 27.0, Anion Gap 6, BUN 25 H, Creatinine 1.00, Estim Creat Clear Calc 98.58, Est GFR (MDRD) Af Amer 100, Est GFR (MDRD) Non-Af 82, BUN/Creatinine Ratio 25.1 H, Glucose 122 H, Calcium 8.5 Micro: Microbiology 03/05/22 14:35 Blood Culture (Wb) - Anticubital Right Blood Culture - Preliminary No growth in 48 hours. 03/05/22 14:00 Blood Culture (Wb) - Anticubital Right Blood Culture - Preliminary No growth in 48 hours. 03/05/22 13:32 Urine Catheter - Catheter Urine Culture - Final Culture exhibits no growth. 03/05/22 18:55 Urine, Random Legionella Antigen - Final 03/05/22 18:55 Urine, Random Streptococcus pneumoniae Antigen (M - Final Radiography Diagnostic Testing: Radiology Impression Brain MRI 03/06/22 06:42 IMPRESSION: No MRI evidence of acute or subacute ischemic infarct or acute intracranial abnormality. Electronically Signed: Alden Olson MD at 11:32 EST , Renal Ultrasound 03/06/22 07:00 IMPRESSION: Within normal limits renal ultrasound. Electronically Signed: Susan Abraham MD at 8:12 EST , Physical Exam Const alert and no apparent distress General Appearance: cooperative HEENT normocephalic and head/scalp atraumatic Eyes PERRL, EOMs intact bilaterally and conjunctivae normal Neck supple General: trachea midline Chest inspection of chest normal Resp Auscultation: diminished lung sounds; Negative for rales, rhonchi or wheezes Cardio regular rate and regular rhythm GI normal to inspection, nondistended, normoactive bowel sounds Extremity no clubbing, cyanosis or edema Skin no rashes or lesions noted Neuro moves all extremities and no focal motor deficits Psych Activity / Motor Behavior: restless Charges/Coding Visit Charges Inpatient E&M: 59537 Subs Hosp L3
--- NOTE | 2022-03-08 07:51 | NURSING ---
Precedex was discontinued before this RN was on the floor. production supervisor off shift stopped the medication from running but did not end the medication on the JUN.
[2022-03-08] MEDS: Aspirin 81 MG TAB.CHEW PO (09:17)
[2022-03-08] MEDS: Enoxaparin 40 MG/0.4 ML Syringe SC (09:18)
[2022-03-08] MEDS: Atorvastatin Calcium 20 MG Tablet PO (09:18)
[2022-03-08] MEDS: Clopidogrel Bisulfate 75 MG Tablet PO (09:18)
[2022-03-08] MEDS: guaiFENesin 1,200 MG Tablet 1200 MG PO ×2 (09:18→22:06)
[2022-03-08] MEDS: Amox/Clavulanate 875 MG Tablet PO (22:06)
[2022-03-08] MEDS: dilTIAZem CD 120 MG Capsule PO (22:06)
[2022-03-09] VITALS (20 sets, daily range): BP systolic 119–134; BP diastolic 60–77; PULSE 82–112; RESP 14–25; TEMP 36.5–37.1; O2SAT 91–97
[2022-03-09] MEDS: Furosemide 40 MG/4 ML Vial IV (02:10)
[2022-03-09] MEDS: 0.9% Saline Lock 10 ML Syringe IV (02:11)
--- NOTE | 2022-03-09 07:18 | PCM.PN.HOSP ---
Subjective Subjective The date of this entry is 03/08/2022: Patient was seen and examined today, he has been off Precedex and is not agitated. I have made the decision to transfer the patient to PCU for further care. Patient is currently on nasal cannula oxygen Objective Data Objective Data Vital Signs: Vital Signs Temp Pulse Resp BP Pulse Ox O2 Del Method O2 Flow Rate 98.1 F 103 H 24 H 119/73 92 Nasal Cannula 6 03/09/22 05:50 03/09/22 05:50 03/09/22 05:50 03/09/22 05:50 03/09/22 05:50 03/09/22 05:50 03/09/22 05:50 FiO2 50 03/09/22 03:50 Oxygen Flow Rate (L/min) 6 Oxygen Delivery Method Nasal Cannula Weight: 122.7 kg Body Mass Index (BMI) 34.9 Intake & Output: Intake and Output for Last 24 Hours 03/07/22 03/08/22 03/09/22 23:59 23:59 23:59 Intake Total 1408.44 / 1427.54 1401.22 / 1401.22 Output Total 2250 / 2850 2550 / 2550 1800 / 1800 Balance -841.56 / -1422.46 -1148.78 / -1148.78 -1800 / -1800 Lab / Micro Data Result Diagrams: 03/08/22 04:00 03/09/22 08:03 Micro: Microbiology 03/05/22 14:35 Blood Culture (Wb) - Anticubital Right Blood Culture - Preliminary No growth in 48 hours. 03/05/22 14:00 Blood Culture (Wb) - Anticubital Right Blood Culture - Preliminary No growth in 48 hours. 03/05/22 13:32 Urine Catheter - Catheter Urine Culture - Final Culture exhibits no growth. 03/05/22 18:55 Urine, Random Legionella Antigen - Final 03/05/22 18:55 Urine, Random Streptococcus pneumoniae Antigen (M - Final Physical Exam Const alert and no apparent distress Constitutional Narrative: Patient is alert and responds appropriately to questions General Appearance: cooperative, well kempt and well developed Orientation / Consciousness: awake, oriented to person and oriented to place HEENT normocephalic, head/scalp atraumatic and moist oral mucous membranes Eyes PERRL, EOMs intact bilaterally and conjunctivae normal Neck supple, no JVD and thyroid normal General: trachea midline Resp normal respiratory effort Resp Narrative: Breath sounds are distant bilaterally, no rales rhonchi or wheezes were noted Auscultation: Negative for rales, rhonchi or wheezes Cardio regular rate, regular rhythm, S1 normal heart sound, S2 normal heart sound, no murmurs, no rub and no gallops Cardio Narrative: Patient has occasional PACs and PVCs GI normal to inspection, nondistended, normoactive bowel sounds, soft to palpation, non-tender and non-distended Extremity no clubbing, cyanosis or edema Skin no rashes or lesions noted General Skin Exam: no breakdown Neuro oriented x3, CN's II-XII intact bilaterally, no focal motor deficits and no sensory deficits noted Sensorium / Orientation: awake and alert Speech: speech normal Psych affect normal Assessment & Plan Assessment/Plan (1) Pneumonia: (2) Sepsis: PLAN: Plan 1. Acute sepsis-secondary to either UTI and/or pneumonia-patient will will be changed to oral Augmentin, again he was transferred to PCU today #2 possible seizure-patient remains on IV Keppra #3 acute kidney injury-resolved at this time #4 acute hypoxic respiratory failure-patient is now on 4 L via nasal cannula, pulse ox will be monitored, pulmonary medicine is participating in his care #5 cerebrovascular disease-patient's MRI showed no evidence of acute stroke, he remains on Plavix and aspirin at this time #6 hyperlipidemia-patient remains on atorvastatin #7 encephalopathy-etiology unclear, patient is alert and appropriate and is off Precedex. Charges/Coding Visit Charges Inpatient E&M: 48746 Subs Hosp L2
--- NOTE | 2022-03-09 07:29 | NURSING ---
All [employer] charting reviewed by this RN. Rehana GIRON
--- NOTE | 2022-03-09 07:38 | RAD_ITS ---
STUDY: X-RAY CHEST REASON FOR EXAM: Male, 56 years old. Hypoxia. TECHNIQUE: Single AP portable view of the chest. COMPARISON: Comparison is made with prior study dated 03/05/2022. FINDINGS: EKG electrodes are seen. The previously seen infiltration in the right upper lobe as well as at both lung bases have markedly improved. Mild residual changes persist. There is no demonstrated pleural abnormality. Normal size heart. Normal mediastinum and niki. Normal visualized pulmonary arteries. Normal visualized aortic arch and descending thoracic aorta. Normal visualized thoracic spine. Normal visualized ribs, clavicles, and shoulders. There is no demonstrated abnormality of the visualized soft tissue structures of the upper abdomen. RAD/Chest 1 View (Portable) IMPRESSION: Interval improvement of the previously seen bilateral pulmonary infiltrates. Mild residual changes persist. Electronically Signed: Matt Walker MD at 9:23 EST ,
[2022-03-09] MEDS: Aspirin 81 MG TAB.CHEW PO (08:18)
[2022-03-09] MEDS: dilTIAZem CD 120 MG Capsule PO ×2 (08:18→22:17)
[2022-03-09] MEDS: Amox/Clavulanate 875 MG Tablet PO ×2 (08:19→16:58)
[2022-03-09 08:44] LABS: Anion Gap 8 (5-15); BUN 20 mg/dL (7-18); BUN/Creat Ratio 28.8 RATIO (10-20); Calcium,Total 9.3 mg/dL (8.5-10.1); Chloride 108 mmol/L (98-107); Creatinine, Serum 0.69 mg/dL (0.70-1.30); EST Glomerular Filtration Rate 125 mL/min (>60); Est Glom Filt Rate - Afr Amer 151 mL/min (>60); Estimated Creatinine Clearance 142.87 ml/min; Glucose 98 mg/dL (74-106); Potassium 3.2 mmol/L (3.5-5.1); Sodium Level 145 mmol/L (136-145)
[2022-03-09] MEDS: Atorvastatin Calcium 20 MG Tablet PO (10:35)
[2022-03-09] MEDS: Enoxaparin 40 MG/0.4 ML Syringe SC (10:35)
[2022-03-09] MEDS: guaiFENesin 1,200 MG Tablet 1200 MG PO ×2 (10:35→22:17)
[2022-03-09] MEDS: levETIRAcetam 500 MG Tablet PO ×2 (10:35→22:17)
[2022-03-09] MEDS: Clopidogrel Bisulfate 75 MG Tablet PO (10:35)
--- NOTE | 2022-03-09 12:37 | PCM.PN.INT ---
Assessment & Plan Assessment/Plan (1) Acute hypoxemic respiratory failure: (2) Sepsis: PLAN: Plan RECOMMENDATIONS: 1. Continue antimicrobials to complete 7 days of therapy. 2. Place patient on continuous pulse oximetry. 3. Provide with incentive spirometer and encourage use. 4. Mobilize patient as tolerated. 5. Continue Keppra as ordered. 6. Wean supplemental oxygen to maintain saturations at or above 90%. 7. Start scheduled Atrovent aerosols. IMPRESSIONS: 1. Sepsis secondary to possible aspiration pneumonia The patient presented with seizure-like activity and possible aspiration pneumonia. However, culture data has been negative to date. The patient did have evidence of acute kidney injury with elevated creatinine and lactic acidemia as markers of endorgan damage. The patient was adequately volume resuscitated. He has responded clinically to antimicrobial therapy, which I would recommend be continued to complete 7 days of therapy. 2. Acute hypoxic respiratory failure The patient is not on supplemental oxygen at baseline, but does have a long smoking history with concerns for COPD. The patient may have had an aspiration event related to seizure activity. Continue to wean supplemental oxygen to maintain saturations at or above 90%. Continue antimicrobials as noted above. In addition, scheduled bronchodilators will be added today. The patient is going to be placed on continuous pulse oximetry. His increased oxygen requirements overnight may certainly have been related to suspected sleep apnea. 3. Possible seizure activity The patient with multiple events of possible seizure activity. Unfortunately, there has been some reference that patient has a history of pseudoseizures. EEG shows severe slowing, but no epileptiform activity. We will continue with seizure precautions for now. The patient will be continued on Keppra in the interim. CT/MRI do not show any acute cerebrovascular insults. 4. History of stroke/chronic pain syndrome/anxiety/depression/poor history Complicates care, management, recovery and prognosis. Continue home medications as indicated. This note was generated with [employer] dictation software. It may contain incorrect words, spelling, and punctuation that were not noted in checking the note before signing. Subjective Subjective The patient was seen and examined at the bedside this morning. Events from the last 24 hours have been reviewed. The patient is currently afebrile, hemodynamically stable and maintaining appropriate oxygen saturations on 6 L/min via nasal cannula. The patient appears comfortable sitting in his bedside recliner. He does not currently have access to an incentive spirometer. Overnight, the patient's oxygen requirement increased at one-point, likely secondary to possible sleep apnea. In addition, the patient is tachycardic this morning with heart rates in the 170s. He did receive a one-time dose of IV Lasix overnight. Objective Data Objective Data The patient's most recent lab work, culture data and imaging studies have all been personally reviewed. Surface echocardiogram demonstrated normal LV size and function with an ejection fraction of 50%. Pulmonary artery systolic pressure was estimated to be 32 mmHg. Infectious work-up has been unrevealing to date. Vital Signs: Vital Signs Temp Pulse Resp BP Pulse Ox O2 Del Method O2 Flow Rate 98.0 F 90 18 132/77 H 93 Nasal Cannula 6 03/09/22 08:00 03/09/22 08:00 03/09/22 08:00 03/09/22 08:00 03/09/22 08:00 03/09/22 08:00 03/09/22 08:00 FiO2 50 03/09/22 03:50 Oxygen Flow Rate (L/min) 6 Oxygen Delivery Method Nasal Cannula Weight: 270 lb 8.115 oz Body Mass Index (BMI) 34.9 Intake & Output: Intake and Output for Last 24 Hours 03/07/22 03/08/22 03/09/22 23:59 23:59 23:59 Intake Total 1408.44 / 1427.54 1401.22 / 1401.22 Output Total 2250 / 2850 2550 / 2550 1800 / 1800 Balance -841.56 / -1422.46 -1148.78 / -1148.78 -1800 / -1800 Lab / Micro Data Attestation: I reviewed the patient's lab results. Result Diagrams: 03/08/22 04:00 03/09/22 08:03 Labs: Laboratory Results - last 24 hr 03/09/22 08:03: Sodium 145, Potassium 3.2 L, Chloride 108 H, Carbon Dioxide 29.0, Anion Gap 8, BUN 20 H, Creatinine 0.69 L, Estim Creat Clear Calc 142.87, Est GFR (MDRD) Af Amer 151, Est GFR (MDRD) Non-Af 125, BUN/Creatinine Ratio 28.8 H, Glucose 98, Calcium 9.3 Micro: Microbiology 03/05/22 14:35 Blood Culture (Wb) - Anticubital Right Blood Culture - Preliminary No growth in 48 hours. 03/05/22 14:00 Blood Culture (Wb) - Anticubital Right Blood Culture - Preliminary No growth in 48 hours. 03/05/22 13:32 Urine Catheter - Catheter Urine Culture - Final Culture exhibits no growth. 03/05/22 18:55 Urine, Random Legionella Antigen - Final 03/05/22 18:55 Urine, Random Streptococcus pneumoniae Antigen (M - Final Radiography Diagnostic Testing: Radiology Impression Chest X-Ray 03/09/22 07:38 IMPRESSION: Interval improvement of the previously seen bilateral pulmonary infiltrates. Mild residual changes persist. Electronically Signed: Matt Walker MD at 9:23 EST , Physical Exam Const alert and no apparent distress Constitutional Narrative: Sitting in bedside recliner. General Appearance: cooperative Nutritional Appearance: obese HEENT normocephalic and head/scalp atraumatic Eyes PERRL, EOMs intact bilaterally and conjunctivae normal Neck supple General: trachea midline Chest inspection of chest normal Resp Auscultation: diminished lung sounds; Negative for rales, rhonchi or wheezes Cardio S1 normal heart sound and S2 normal heart sound Rate: tachycardic GI normal to inspection, nondistended, normoactive bowel sounds Extremity no clubbing, cyanosis or edema Skin no rashes or lesions noted Neuro CN's II-XII intact bilaterally, moves all extremities and no focal motor deficits Psych cooperative and affect normal Charges/Coding Visit Charges Inpatient E&M: 49099 Subs Hosp L2
[2022-03-09] MEDS: Ipratropium 0.5 MG/2.5 ML SOLUTION INHALATION ×3 (15:58→22:22)
--- NOTE | 2022-03-09 17:26 | PCM.PN.HOSP ---
Subjective Subjective Patient was seen and examined today, he still requiring oxygen at 5 L via nasal cannula. I talked briefly with pulmonary medicine about his care, patient has had episodes of tachycardia today with frequent PACs and PVCs. I have elected to start the patient on metoprolol. Objective Data Objective Data Vital Signs: Vital Signs Temp Pulse Resp BP Pulse Ox O2 Del Method O2 Flow Rate 97.8 F 87 18 119/66 91 Nasal Cannula 5 03/09/22 16:42 03/09/22 16:42 03/09/22 16:42 03/09/22 16:42 03/09/22 16:42 03/09/22 16:42 03/09/22 16:42 FiO2 50 03/09/22 09:00 Oxygen Flow Rate (L/min) 5 Oxygen Delivery Method Nasal Cannula Weight: 122.7 kg Body Mass Index (BMI) 34.9 Intake & Output: Intake and Output for Last 24 Hours 03/07/22 03/08/22 03/09/22 23:59 23:59 23:59 Intake Total 1408.44 / 1427.54 1401.22 / 1401.22 1120 / 1120 Output Total 2250 / 2850 2550 / 2550 2200 / 2200 Balance -841.56 / -1422.46 -1148.78 / -1148.78 -1080 / -1080 Lab / Micro Data Result Diagrams: 03/08/22 04:00 03/09/22 08:03 Labs: Laboratory Results - last 24 hr 03/09/22 08:03: Sodium 145, Potassium 3.2 L, Chloride 108 H, Carbon Dioxide 29.0, Anion Gap 8, BUN 20 H, Creatinine 0.69 L, Estim Creat Clear Calc 142.87, Est GFR (MDRD) Af Amer 151, Est GFR (MDRD) Non-Af 125, BUN/Creatinine Ratio 28.8 H, Glucose 98, Calcium 9.3 Micro: Microbiology 03/09/22 09:30 Sputum, Expectorated/Coughed Gram Stain - Final 03/05/22 14:35 Blood Culture (Wb) - Anticubital Right Blood Culture - Preliminary No growth in 48 hours. 03/05/22 14:00 Blood Culture (Wb) - Anticubital Right Blood Culture - Preliminary No growth in 48 hours. 03/05/22 13:32 Urine Catheter - Catheter Urine Culture - Final Culture exhibits no growth. 03/05/22 18:55 Urine, Random Legionella Antigen - Final 03/05/22 18:55 Urine, Random Streptococcus pneumoniae Antigen (M - Final Radiography Diagnostic Testing: Radiology Impression Chest X-Ray 03/09/22 07:38 IMPRESSION: Interval improvement of the previously seen bilateral pulmonary infiltrates. Mild residual changes persist. Electronically Signed: Matt Walker MD at 9:23 EST , Physical Exam Const alert, oriented x3, no apparent distress and average body habitus General Appearance: cooperative, well kempt and well developed Orientation / Consciousness: awake, oriented to person, oriented to place and oriented to time HEENT normocephalic, head/scalp atraumatic and moist oral mucous membranes Eyes PERRL, EOMs intact bilaterally and conjunctivae normal Neck supple, no JVD, thyroid normal and no carotid bruits General: trachea midline Resp normal respiratory effort, no retractions and no use of accessory muscles Resp Narrative: Breath sounds are diminished bilaterally Auscultation: Negative for rales, rhonchi or wheezes Cardio S1 normal heart sound, S2 normal heart sound, no murmurs, no rub and no gallops Cardio Narrative: Heart rate and rhythm is regular with frequent ectopic beats-PACs and PVCs noted GI normal to inspection, nondistended, normoactive bowel sounds, soft to palpation, non-tender and non-distended Extremity no clubbing, cyanosis or edema Skin no rashes or lesions noted General Skin Exam: no breakdown Neuro oriented x3, CN's II-XII intact bilaterally, no focal motor deficits and no sensory deficits noted Sensorium / Orientation: awake and alert Speech: speech normal Psych affect normal Assessment & Plan Assessment/Plan (1) ANJALI (acute kidney injury): (2) Pneumonia: (3) Sepsis: PLAN: Plan 1. Acute sepsis-secondary to either UTI and/or pneumonia-patient is currently on Augmentin #2 possible seizure-patient remains on p.o. Keppra #3 acute kidney injury-resolved at this time #4 acute hypoxic respiratory failure-patient is now on 5 L via nasal cannula, pulse ox will be monitored, pulmonary medicine is participating in his care #5 cerebrovascular disease-patient's MRI showed no evidence of acute stroke, he remains on Plavix and aspirin at this time #6 hyperlipidemia-patient remains on atorvastatin #7 encephalopathy-etiology unclear, patient is alert and appropriate #8 paroxysmal A. fib/frequent PVCs and PACs-I have elected to place the patient on metoprolol 25 mg twice daily Charges/Coding Visit Charges Inpatient E&M: 05502 Subs Hosp L2
[2022-03-09] MEDS: Metoprolol Tartrate 25 MG Tablet PO (18:15)
[2022-03-10] VITALS (22 sets, daily range): BP systolic 102–143; BP diastolic 68–83; PULSE 67–106; RESP 16–20; TEMP 36.3–37; O2SAT 91–96; BMI 34.9
[2022-03-10] MEDS: Ipratropium 0.5 MG/2.5 ML SOLUTION INHALATION ×6 (03:48→23:06)
--- NOTE | 2022-03-10 08:53 | PCM.PN.INT ---
Assessment & Plan Assessment/Plan (1) Acute hypoxemic respiratory failure: (2) Sepsis: PLAN: Plan RECOMMENDATIONS: 1. Continue antimicrobials to complete 7 days of therapy. 2. Continue to wean supplemental oxygen to maintain saturations at or above 90%. 3. Encourage incentive spirometer use and mobilize patient as tolerated. 4. Attempt gentle diuresis today. 5. Continue Keppra as ordered. 6. Continue scheduled bronchodilator therapy. IMPRESSIONS: 1. Sepsis secondary to possible aspiration pneumonia The patient presented with seizure-like activity and possible aspiration pneumonia. However, culture data has been negative to date. The patient did have evidence of acute kidney injury with elevated creatinine and lactic acidemia as markers of end-organ damage. The patient was adequately volume resuscitated. He has responded clinically to antimicrobial therapy, which I would recommend be continued to complete 7 days of therapy. 2. Acute hypoxic respiratory failure The patient is not on supplemental oxygen at baseline, but does have a long smoking history with concerns for COPD. The patient may have had an aspiration event related to seizure activity. Continue to wean supplemental oxygen to maintain saturations at or above 90%. Continue antimicrobials as noted above. In addition, scheduled bronchodilators will be continued. Lastly, gentle diuresis will be undertaken today with IV Lasix. 3. Possible seizure activity The patient with multiple events of possible seizure activity. Unfortunately, there has been some reference that patient has a history of pseudoseizures. EEG shows severe slowing, but no epileptiform activity. We will continue with seizure precautions for now. The patient will be continued on Keppra in the interim. CT/MRI do not show any acute cerebrovascular insults. 4. History of stroke/chronic pain syndrome/anxiety/depression/poor history Complicates care, management, recovery and prognosis. Continue home medications as indicated. This note was generated with [employer] dictation software. It may contain incorrect words, spelling, and punctuation that were not noted in checking the note before signing. Subjective Subjective The patient was seen and examined at the bedside this morning. Events from the last 24 hours have been reviewed. The patient is currently afebrile, hemodynamically stable and maintaining appropriate oxygen saturations on 5 L/min via nasal cannula. The patient is documented to be overall net +3.4 L for the hospitalization. The patient is currently receiving an aerosol treatment. Potassium is low at 3.3 this morning. Creatinine is within normal limits. Objective Data Objective Data The patient's most recent lab work, culture data and imaging studies have all been personally reviewed. Surface echocardiogram demonstrated normal LV size and function with an ejection fraction of 50%. Pulmonary artery systolic pressure was estimated to be 32 mmHg. Infectious work-up has been unrevealing to date. Vital Signs: Vital Signs Temp Pulse Resp BP Pulse Ox O2 Del Method O2 Flow Rate 98.6 F 84 20 H 136/73 H 91 Nasal Cannula 5 03/10/22 04:15 03/10/22 07:17 03/10/22 07:17 03/10/22 04:15 03/10/22 07:17 03/10/22 07:17 03/10/22 07:17 FiO2 50 03/10/22 04:15 Oxygen Flow Rate (L/min) 5 Oxygen Delivery Method Nasal Cannula Weight: 274 lb 14.663 oz Body Mass Index (BMI) 34.9 Intake & Output: Intake and Output for Last 24 Hours 03/08/22 03/09/22 03/10/22 23:59 23:59 23:59 Intake Total 1401.22 / 1401.22 3000 / 3100 600 / 600 Output Total 2550 / 2550 2550 / 2950 700 / 700 Balance -1148.78 / -1148.78 450 / 150 -100 / -100 Lab / Micro Data Attestation: I reviewed the patient's lab results. Result Diagrams: 03/08/22 04:00 03/10/22 10:25 Labs: Laboratory Results - last 24 hr 03/09/22 08:03: Sodium 145, Potassium 3.2 L, Chloride 108 H, Carbon Dioxide 29.0, Anion Gap 8, BUN 20 H, Creatinine 0.69 L, Estim Creat Clear Calc 142.87, Est GFR (MDRD) Af Amer 151, Est GFR (MDRD) Non-Af 125, BUN/Creatinine Ratio 28.8 H, Glucose 98, Calcium 9.3 Micro: Microbiology 03/09/22 09:30 Sputum, Expectorated/Coughed Gram Stain - Final 03/05/22 14:35 Blood Culture (Wb) - Anticubital Right Blood Culture - Preliminary No growth in 48 hours. 03/05/22 14:00 Blood Culture (Wb) - Anticubital Right Blood Culture - Preliminary No growth in 48 hours. 03/05/22 13:32 Urine Catheter - Catheter Urine Culture - Final Culture exhibits no growth. 03/05/22 18:55 Urine, Random Legionella Antigen - Final 03/05/22 18:55 Urine, Random Streptococcus pneumoniae Antigen (M - Final Radiography Diagnostic Testing: Radiology Impression Chest X-Ray 03/09/22 07:38 IMPRESSION: Interval improvement of the previously seen bilateral pulmonary infiltrates. Mild residual changes persist. Electronically Signed: Matt Walker MD at 9:23 EST , Physical Exam Const alert and no apparent distress Constitutional Narrative: Sitting upright in bed, receiving aerosol treatment. General Appearance: cooperative Nutritional Appearance: obese HEENT normocephalic and head/scalp atraumatic Eyes PERRL, EOMs intact bilaterally and conjunctivae normal Neck supple General: trachea midline Chest inspection of chest normal Resp Auscultation: diminished lung sounds; Negative for rales, rhonchi or wheezes Cardio regular rate, regular rhythm, S1 normal heart sound and S2 normal heart sound GI normal to inspection, nondistended, normoactive bowel sounds Extremity no clubbing, cyanosis or edema Skin no rashes or lesions noted Neuro CN's II-XII intact bilaterally, moves all extremities and no focal motor deficits Psych cooperative and affect normal Charges/Coding Visit Charges Inpatient E&M: 77448 Subs Hosp L2
[2022-03-10] MEDS: dilTIAZem CD 120 MG Capsule PO ×2 (09:16→22:24)
[2022-03-10] MEDS: Aspirin 81 MG TAB.CHEW PO (09:16)
[2022-03-10] MEDS: levETIRAcetam 500 MG Tablet PO ×2 (09:16→22:23)
[2022-03-10] MEDS: Amox/Clavulanate 875 MG Tablet PO ×2 (09:16→18:19)
[2022-03-10] MEDS: Atorvastatin Calcium 20 MG Tablet PO (09:16)
[2022-03-10] MEDS: Metoprolol Tartrate 25 MG Tablet PO ×2 (09:17→22:23)
[2022-03-10] MEDS: guaiFENesin 1,200 MG Tablet 1200 MG PO ×2 (09:17→22:23)
[2022-03-10] MEDS: Clopidogrel Bisulfate 75 MG Tablet PO (09:17)
[2022-03-10] MEDS: Enoxaparin 40 MG/0.4 ML Syringe SC (09:17)
[2022-03-10] MEDS: Furosemide 40 MG/4 ML Vial IV (09:40)
[2022-03-10] MEDS: 0.9% Saline Lock 10 ML Syringe IV (09:40)
[2022-03-10] MEDS: Acetaminophen 325 MG Tablet 650 MG PO ×2 (09:41→22:32)
[2022-03-10 11:04] LABS: Anion Gap 10 (5-15); BUN 20 mg/dL (7-18); BUN/Creat Ratio 32.2 RATIO (10-20); Calcium,Total 8.6 mg/dL (8.5-10.1); Chloride 105 mmol/L (98-107); Creatinine, Serum 0.62 mg/dL (0.70-1.30); EST Glomerular Filtration Rate 142 mL/min (>60); Est Glom Filt Rate - Afr Amer 172 mL/min (>60); Estimated Creatinine Clearance 159.01 ml/min; Glucose 110 mg/dL (74-106); Potassium 3.3 mmol/L (3.5-5.1); Sodium Level 141 mmol/L (136-145)
[2022-03-10] MEDS: Potassium Chloride Oral Tablet 20 MEQ 40 MEQ PO (13:52)
--- NOTE | 2022-03-10 16:34 | CASEMGMT ---
MACK MORALES NOTE: Pt refused to work w/therapy today d/t pain. Per therapy notes yesterday, additional therapy recommended. MACK MORALES to room. Introduced self and role to pt and sister/ POA, who is at bedside. Discussed discharge planning. Pt wishes to discharge home and feels he will be safe to return home alone. He and sister are interested in pt having HHC. Sister requests [facility] and pt agreeable. They decline wanting list of additional HHC agencies to review for choices. Pt states he only wants therapy, not nursing, as his sister is a nurse. Sister agrees. Order placed for HHC for PT/OT. Call placed to Windy @ [facility] and referral made. She states they are able to accept w/SOC on Sunday. Pt and sister made aware. Pt currently on 4 l/m O2. Pt declines having home O2 and states he does not have a pulse ox. Pt and sister provided w/list of local DME companies and made aware [employer] is affiliated w/[facility]. [employer] is 1st preference. Green sheet placed on chart w/instructions for HHC and oxygen, if he qualifies, if he discharges over the weekend. Randy VEGA RN, CM
--- NOTE | 2022-03-10 17:18 | PCM.PN.HOSP ---
Subjective Subjective Patient was seen and examined today, he is currently on 4 L of oxygen and appears comfortable. Patient would not ambulate for a walking pulse ox today, he stated that he would do it tomorrow. My plan is to get the patient set up for oxygen at home. I talked with the patient's family member who was in the room at the time my examination. Objective Data Objective Data Vital Signs: Vital Signs Temp Pulse Resp BP Pulse Ox O2 Del Method O2 Flow Rate 98.0 F 78 18 124/70 H 94 Nasal Cannula 4 03/10/22 14:00 03/10/22 16:00 03/10/22 16:00 03/10/22 14:00 03/10/22 14:00 03/10/22 14:00 03/10/22 14:00 FiO2 50 03/10/22 04:15 Oxygen Flow Rate (L/min) 4 Oxygen Delivery Method Nasal Cannula Weight: 124.7 kg Body Mass Index (BMI) 34.9 Intake & Output: Intake and Output for Last 24 Hours 03/08/22 03/09/22 03/10/22 23:59 23:59 23:59 Intake Total 1401.22 / 1401.22 3000 / 3100 600 / 600 Output Total 2550 / 2550 2550 / 2950 700 / 700 Balance -1148.78 / -1148.78 450 / 150 -100 / -100 Lab / Micro Data Result Diagrams: 03/08/22 04:00 03/10/22 10:25 Labs: Laboratory Results - last 24 hr 03/10/22 10:25: Sodium 141, Potassium 3.3 L, Chloride 105, Carbon Dioxide 26.0, Anion Gap 10, BUN 20 H, Creatinine 0.62 L, Estim Creat Clear Calc 159.01, Est GFR (MDRD) Af Amer 172, Est GFR (MDRD) Non-Af 142, BUN/Creatinine Ratio 32.2 H, Glucose 110 H, Calcium 8.6 Micro: Microbiology 03/05/22 14:00 Blood Culture (Wb) - Anticubital Right Blood Culture - Final No growth in 5 days. 03/05/22 14:35 Blood Culture (Wb) - Anticubital Right Blood Culture - Final No growth in 5 days. 03/09/22 09:30 Sputum, Expectorated/Coughed Gram Stain - Final 03/09/22 09:30 Sputum, Expectorated/Coughed Respiratory Culture - Preliminary Appears to be normal respiratory moshe. Further studies to follow. 03/05/22 13:32 Urine Catheter - Catheter Urine Culture - Final Culture exhibits no growth. 03/05/22 18:55 Urine, Random Legionella Antigen - Final 03/05/22 18:55 Urine, Random Streptococcus pneumoniae Antigen (M - Final Physical Exam Narrative alert, oriented x3, no apparent distress and average body habitus General Appearance: cooperative, well kempt and well developed Orientation / Consciousness: awake, oriented to person, oriented to place and oriented to time HEENT normocephalic, head/scalp atraumatic and moist oral mucous membranes Eyes PERRL, EOMs intact bilaterally and conjunctivae normal Neck supple, no JVD, thyroid normal and no carotid bruits General: trachea midline Resp normal respiratory effort, no retractions and no use of accessory muscles Resp Narrative: Breath sounds are diminished bilaterally Auscultation: Negative for rales, rhonchi or wheezes Cardio S1 normal heart sound, S2 normal heart sound, no murmurs, no rub and no gallops Cardio Narrative: Heart rate and rhythm is regular with frequent ectopic beats-PACs and PVCs noted GI normal to inspection, nondistended, normoactive bowel sounds, soft to palpation, non-tender and non-distended Extremity no clubbing, cyanosis or edema Skin no rashes or lesions noted General Skin Exam: no breakdown Neuro oriented x3, CN's II-XII intact bilaterally, no focal motor deficits and no sensory deficits noted Sensorium / Orientation: awake and alert Speech: speech normal Psych affect normal Assessment & Plan Assessment/Plan (1) Pneumonia: (2) ANJALI (acute kidney injury): (3) Sepsis: PLAN: Plan 1. Acute sepsis-secondary to either UTI and/or pneumonia-patient is currently on Augmentin, he remains afebrile #2 possible seizure-patient remains on p.o. Keppra #3 acute kidney injury-resolved at this time #4 acute hypoxic respiratory failure-patient is now on 4 L via nasal cannula, pulse ox will be monitored, pulmonary medicine is participating in his care, he will probably need oxygen set up at his home when he is discharged #5 cerebrovascular disease-patient's MRI showed no evidence of acute stroke, he remains on Plavix and aspirin at this time #6 hyperlipidemia-patient remains on atorvastatin #7 encephalopathy-etiology unclear, patient is alert and appropriate today #8 paroxysmal A. fib/frequent PVCs and PACs-I have elected to place the patient on metoprolol 25 mg twice daily Charges/Coding Visit Charges Inpatient E&M: 25258 Subs Hosp L2
[2022-03-11] VITALS (12 sets, daily range): BP systolic 114–129; BP diastolic 66–77; PULSE 77–96; RESP 18–20; TEMP 36.8–37.2; O2SAT 88–97
[2022-03-11] MEDS: Ipratropium 0.5 MG/2.5 ML SOLUTION INHALATION ×2 (07:36→10:50)
[2022-03-11] MEDS: Amox/Clavulanate 875 MG Tablet PO (07:46)
[2022-03-11] MEDS: Aspirin 81 MG TAB.CHEW PO (07:46)
--- NOTE | 2022-03-11 07:54 | PN.CC_ITS ---
Assessment & Plan Assessment/Plan (1) Acute hypoxemic respiratory failure: (2) Sepsis: PLAN: Plan RECOMMENDATIONS: 1. Continue antimicrobials to complete 7 days of therapy. 2. Continue to wean supplemental oxygen to maintain saturations at or above 90%. 3. Encourage incentive spirometer use and mobilize patient as tolerated. 4. Continue Keppra as ordered. 5. Continue scheduled bronchodilator therapy. IMPRESSIONS: 1. Sepsis secondary to possible aspiration pneumonia The patient presented with seizure-like activity and possible aspiration pneumonia. However, culture data has been negative to date. The patient did have evidence of acute kidney injury with elevated creatinine and lactic acidemia as markers of end-organ damage. The patient was adequately volume resuscitated. He has responded clinically to antimicrobial therapy, which I would recommend be continued to complete 7 days of therapy. 2. Acute hypoxic respiratory failure Improving. The patient is not on supplemental oxygen at baseline, but does have a long smoking history with concerns for COPD. The patient may have had an aspiration event related to seizure activity. Continue to wean supplemental oxygen to maintain saturations at or above 90%. Continue antimicrobials as noted above. In addition, scheduled bronchodilators will be continued. 3. Possible seizure activity The patient with multiple events of possible seizure activity. Unfortunately, there has been some reference that patient has a history of pseudoseizures. EEG shows severe slowing, but no epileptiform activity. We will continue with seizure precautions for now. The patient will be [facility]/MRI do not show any acute cerebrovascular insults. 4. History of stroke/chronic pain syndrome/anxiety/depression/poor history Complicates care, management, recovery and prognosis. Continue home medications as indicated. This note was generated with NaviExpert dictation software. It may contain incorrect words, spelling, and punctuation that were not noted in checking the note before signing. Subjective Subjective The patient was seen and examined at the bedside this morning. Events from the last 24 hours have been reviewed. The patient is currently afebrile, hemodynamically stable and maintaining appropriate oxygen saturations on 3 L/min via nasal cannula. When questioned specifically this morning about a history of sleep apnea, the patient reported that he was diagnosed with mild ANDRE previously but does not utilize any form of nocturnal Pap therapy. He is currently docu mented to be overall net +2.6 L for the hospitalization. Objective Data Objective Data The patient's most recent lab work, culture data and imaging studies have all been personally reviewed. Surface echocardiogram demonstrated normal LV size and function with an ejection fraction of 50%. Pulmonary artery systolic pressure was estimated to be 32 mmHg. Infectious work-up has been unrevealing to date. Vital Signs: Vital Signs Temp Pulse Resp BP Pulse Ox O2 Del Method O2 Flow Rate 98.9 F 86 20 H 117/66 94 Nasal Cannula 5 03/11/22 05:23 03/11/22 05:23 03/11/22 05:23 03/11/22 05:23 03/11/22 05:23 03/11/22 05:24 03/11/22 05:24 FiO2 50 03/11/22 05:23 Oxygen Flow Rate (L/min) 5 Oxygen Delivery Method Nasal Cannula Weight: 274 lb 0.553 oz Body Mass Index (BMI) 34.9 Intake & Output: Intake and Output for Last 24 Hours 03/09/22 03/10/22 03/11/22 23:59 23:59 23:59 Intake Total 3000 / 3100 1580 / 1830 400 / 400 Output Total 2550 / 2950 2350 / 2675 525 / 525 Balance 450 / 150 -770 / -845 -125 / -125 Lab / Micro Data Attestation: I reviewed the patient's lab results. Result Diagrams: 03/08/22 04:00 03/10/22 10:25 Labs: Laboratory Results - last 24 hr 03/10/22 10:25: Sodium 141, Potassium 3.3 L, Chloride 105, Carbon Dioxide 26.0, Anion Gap 10, BUN 20 H, Creatinine 0.62 L, Estim Creat Clear Calc 159.01, Est GFR (MDRD) Af Amer 172, Est GFR (MDRD) Non-Af 142, BUN/Creatinine Ratio 32.2 H, Glucose 110 H, Calcium 8.6 Micro: Microbiology 03/09/22 09:30 Sputum, Expectorated/Coughed Gram Stain - Final 03/09/22 09:30 Sputum, Expectorated/Coughed Respiratory Culture - Preliminary Staphylococcus species 03/05/22 14:00 Blood Culture (Wb) - Anticubital Right Blood Culture - Final No growth in 5 days. 03/05/22 14:35 Blood Culture (Wb) - Anticubital Right Blood Culture - Final No growth in 5 days. 03/05/22 13:32 Urine Catheter - Catheter Urine Culture - Final Culture exhibits no growth. 03/05/22 18:55 Urine, Random Legionella Antigen - Final 03/05/22 18:55 Urine, Random Streptococcus pneumoniae Antigen (M - Final Radiography Diagnostic Testing: Radiology Impression Chest X-Ray 03/09/22 07:38 IMPRESSION: Interval improvement of the previously seen bilateral pulmonary infiltrates. Mild residual changes persist. Electronically Signed: Matt Walker MD at 9:23 EST , Physical Exam Const alert and no apparent distress General Appearance: cooperative Nutritional Appearance: obese HEENT normocephalic and head/scalp atraumatic Eyes PERRL, EOMs intact bilaterally and conjunctivae normal Neck supple General: trachea midline Chest inspection of chest normal Resp Auscultation: wheezes left upper and diminished lung sounds; Negative for rales or rhonchi Cardio regular rate, regular rhythm, S1 normal heart sound and S2 normal heart sound GI normal to inspection, nondistended, normoactive bowel sounds Extremity no clubbing, cyanosis or edema Skin no rashes or lesions noted Neuro CN's II-XII intact bilaterally, moves all extremities and no focal motor deficits Psych cooperative and affect normal Charges/Coding Visit Charges Inpatient E&M: 45182 Subs Hosp L2
[2022-03-11] MEDS: Clopidogrel Bisulfate 75 MG Tablet PO (10:23)
[2022-03-11] MEDS: guaiFENesin 1,200 MG Tablet 1200 MG PO (10:23)
[2022-03-11] MEDS: dilTIAZem CD 120 MG Capsule PO (10:23)
[2022-03-11] MEDS: levETIRAcetam 500 MG Tablet PO (10:23)
[2022-03-11] MEDS: Enoxaparin 40 MG/0.4 ML Syringe SC (10:23)
[2022-03-11] MEDS: Atorvastatin Calcium 20 MG Tablet PO (10:24)
[2022-03-11] MEDS: Metoprolol Tartrate 25 MG Tablet PO (10:24)
--- NOTE | 2022-03-11 11:19 | CASEMGMT ---
MACK MORALES NOTE: Therapy has worked w/pt today and state pt is safe to return home. MACK MORALES to room. Pt sitting up in chair in room. He states he feels he is safe to return home as well. He is aware [facility] is slated for Tu. Pt qualifies for O2 @ 2l/m @ rest and 3 l/m w/exertion. MACK MORALES explained process of home O2 set-up. Questions answered. Randy VEGA RN, CM
--- NOTE | 2022-03-11 11:24 | PCM.DC ---
Discharge Instructions Diet Discharge Diet: No restrictions Activity Discharge Activity: Return to Normal Activity Weight Bearing Status: Full weight bearing Follow Up Care Test Results: Test results from this visit will be discussed in further detail at your follow-up appointment, if applicable. Discharge Plan Admission Admit Date/Time: 03/05/22 15:51 Primary Reason for Your Visit: pneumonia, sepsis, seizure Attending Provider: Papo Rahman Primary Care Provider: Jose Maria Cardenas Consulting Providers: Martin Heredia ; Nora Laws ; Slava Lamas ; Jostin Mackay ; Jigar Jesus ; Daniel Desai ; Winifred Wallis FOREIGN EXCHANGE CLERK Instructions Additional Instructions / Restrictions: oxygen at 3 liters/min when ambulating, 2 liters at rest Discharge Orders/Prescriptions Prescriptions: New levetiracetam 500 mg Tablet 500 mg PO BID Qty: 60 0RF aspirin 81 mg Tablet,Chewable 81 mg PO BREAKFAST Qty: 30 0RF amoxicillin-pot clavulanate 875-125 mg Tablet 875 mg PO BIDCM Qty: 5 0RF Rx Instructions: start first dose this evening -take with food metoprolol tartrate 25 mg Tablet 25 mg PO BID Qty: 60 0RF Continued fenofibrate 160 mg tablet 160 mg PO DAILY atorvastatin [Lipitor] 20 mg tablet 20 mg PO DAILY duloxetine 60 mg capsule,delayed release(DR/EC) 60 mg PO BID doxazosin 8 mg tablet 8 mg PO DAILY multivitamin [Multiple Vitamins] Tablet 1 tab PO DAILY acetaminophen [Tylenol Arthritis Pain] 650 mg tablet extended release 650 mg PO TID (DME) Heavy duty shower chair Patient wt: 289lb See Rx Instructions .Route .MEDSUPPLY Qty: 1 0RF Rx Instructions: As directed clopidogrel [Plavix] 75 mg tablet 75 mg PO DAILY Qty: 90 1RF omeprazole 40 mg capsule,delayed release(DR/EC) 40 mg PO DAILY Qty: 90 1RF diltiazem HCl 120 mg capsule,extended release 24hr 120 mg PO BID Discontinued lisinopril 20 mg tablet 20 mg PO DAILY flurbiprofen 100 mg tablet 100 mg PO TID PRN (Reason: pain) Qty: 270 1RF olanzapine 7.5 mg tablet 7.5 mg PO QAM Qty: 90 1RF ropinirole 4 mg tablet 4 mg PO BID Qty: 180 1RF baclofen 20 mg tablet See Rx Instructions .ROUTE .COMPLEX Qty: 450 1RF Rx Instructions: one to one and a half tablets PO QID prn (up to a total of five tablets daily) Referrals / Follow Up: Jose Maria Cardenas MD [Primary Care Provider] - Within 2 Weeks Care Physician,No Primary [Non-Staff] - Disposition Disposition (needs filled in before D/C Order can be placed): Home Health Service
--- NOTE | 2022-03-11 11:40 | PCM.DC.SUM ---
Providers Date of Admission: 03/05/22 Date of Discharge: 03/11/22 Primary Care Physician: Dr. Jose Maria Cardenas MD Consultations 03/06/22 06:12 Consult: Skilled Nursing Case Manager / Pulmonary Medicine Routine Consulting Provider: Pulmonary Medicine mitul Hines Reason for Consult: Change in Mental Status EMERGENT Consult: No MD Notified: Yes Date Notified: 03/06/22 Time Notified: 06:12 Method of Notification: Verbal Reason For Visit: PNEUMONIA CONFUSION Diagnosis Discharge Diagnosis (1) Acute hypoxemic respiratory failure: Status: Acute Code(s): J96.01 - Acute respiratory failure with hypoxia (2) Sepsis: Status: Acute Code(s): A41.9 - Sepsis, unspecified organism Plan 1. Acute sepsis-secondary to pneumonia-patient is currently on Augmentin, he remains afebrile #2 possible seizure-patient remains on p.o. Keppra #3 acute kidney injury-resolved at this time #4 acute hypoxic respiratory failure-patient is now on 4 L via nasal cannula, pulse ox will be monitored, pulmonary medicine is participating in his care, he will probably need oxygen set up at his home when he is discharged #5 cerebrovascular disease-patient's MRI showed no evidence of acute stroke, he remains on Plavix and aspirin at this time #6 hyperlipidemia-patient remains on atorvastatin #7 encephalopathy-etiology unclear, patient is alert and appropriate today #8 paroxysmal A. fib/frequent PVCs and PACs-I have elected to place the patient on metoprolol 25 mg twice daily Medications at Discharge Home Medications Heavy duty shower chair #1 ea 09/27/21 acetaminophen 650 mg tablet,extended release (Tylenol Arthritis Pain) 650 mg PO TID pain 09/27/21 atorvastatin 20 mg tablet (Lipitor) 20 mg PO DAILY cholesterol 09/27/21 clopidogrel 75 mg tablet (Plavix) 75 mg PO DAILY #90 tabs 09/27/21 doxazosin 8 mg tablet 8 mg PO DAILY prostate 09/27/21 duloxetine 60 mg capsule,delayed release 60 mg PO BID mental health 09/27/21 fenofibrate 160 mg tablet 160 mg PO DAILY cholesterol 09/27/21 multivitamin (Multiple Vitamins tablet) 1 tab PO DAILY vitamin 09/27/21 omeprazole 40 mg capsule,delayed release 40 mg PO DAILY #90 caps 09/27/21 diltiazem HCl 120 mg capsule,extended release 24 hr 120 mg PO BID heart rate 03/05/22 amoxicillin 875 mg-potassium clavulanate 125 mg tablet 875 mg PO BIDCM #5 tabs 03/11/22 aspirin 81 mg chewable tablet 81 mg PO BREAKFAST #30 tabs 03/11/22 levetiracetam 500 mg tablet 500 mg PO BID #60 tabs 03/11/22 metoprolol tartrate 25 mg tablet 25 mg PO BID #60 tabs 03/11/22 Hospital Course Operations None Procedures 2-D Echocardiogram Summary of Care Provided Minutes Spent on Discharge: 31 Hospital Course: This 56-year-old white male was seen in the emergency room at [facility] after being brought in by squad after having what appeared to be a seizure at home. Patient had a head CT and a CTA of the head and neck that were unremarkable, patient was seen by [facility] teleneurology who recommended additional stroke work-up. Patient was found to have a right lower lobe infiltrate on his chest x-ray, he received antibiotics in the emergency room and was admitted to the hospital for suspected CVA, pneumonia, acute kidney injury, and seizure. Patient was later transferred from PCU to ICU due to hypotension, patient was placed on pressors and he was seen in consultation by critical care. Patient was felt to be in septic shock, he was maintained on seizure medications and IV antibiotics, gradually the patient's pressors were weaned off, patient had episodic agitation in the ICU and had to be placed on Precedex. Patient was ultimately transferred to PCU and was seen by PT and OT. Patient remained hypoxic and at the time of discharge had to be set up for home O2. On 03/11/2022, patient was seen and examined: On examination he appeared in good health and spirits. Vital signs as documented. Skin warm and dry and without overt rashes. Neck without JVD, neck was supple, trachea midline, thyroid was normal. Lungs clear bilaterally, normal air movement was noted. Heart exam notable for regular rhythm, normal sounds and absence of murmurs, rubs or gallops. Abdomen unremarkable and without evidence of organomegaly, masses, or abdominal aortic enlargement. Bowel sounds are present, abdomen is not distended. Extremities nonedematous, no cyanosis was noted, no clubbing was noted. Neuro: Cranial nerves II through XII are grossly intact, no focal motor deficits were noted, sensation to light touch and pinprick intact, motor exam 5/5 throughout. Psych: Patient is alert and oriented x3, he does not appear anxious or depressed, he does not appear agitated. Patient appears stable for discharge on 03/11/2022, patient required oxygen at 2 L/min at rest and 3 L/min when ambulating, he was expected to use the oxygen during activities of daily living and outside the home. Patient's pulse ox on room air at rest was 88%. Weight / BMI Weight Weight: 124.3 kg Body Mass Index (BMI) 34.9 ABG / Lab / Microbiology Data Result Diagrams: 03/08/22 04:00 03/10/22 10:25 Microbiology: Microbiology 03/09/22 09:30 Sputum, Expectorated/Coughed Gram Stain - Final 03/09/22 09:30 Sputum, Expectorated/Coughed Respiratory Culture - Preliminary Staphylococcus species 03/05/22 14:00 Blood Culture (Wb) - Anticubital Right Blood Culture - Final No growth in 5 days. 03/05/22 14:35 Blood Culture (Wb) - Anticubital Right Blood Culture - Final No growth in 5 days. 03/05/22 13:32 Urine Catheter - Catheter Urine Culture - Final Culture exhibits no growth. 03/05/22 18:55 Urine, Random Legionella Antigen - Final 03/05/22 18:55 Urine, Random Streptococcus pneumoniae Antigen (M - Final D/C Instructions Discharge Diet: No restrictions Weight Bearing Status: Full weight bearing Meaningful Use Info Meaningful Use Diagnoses (Choose all that apply): None applicable Discharge Plan Admission Admit Date/Time: 03/05/22 15:51 Primary Reason for Your Visit: pneumonia, sepsis, seizure Attending Provider: Papo Rahman Primary Care Provider: Jose Maria Cardenas Consulting Providers: Martin Heredia ; Nora Laws ; Slava Lamas ; Jostin Mackay ; Jigar Jesus ; Daneil Desai ; Winifred Wallis TRANSITIONAL STUDIES INSTRUCTOR Instructions Additional Instructions / Restrictions: oxygen at 3 liters/min when ambulating, 2 liters at rest Patient Problems: Altered Health Status related to Hospitalization Patient Goals: *Optimal Level of Health *Keep Appointments *Medication Compliance *Remain Safe Discharge Orders/Prescriptions Prescriptions: New levetiracetam 500 mg Tablet 500 mg PO BID Qty: 60 0RF aspirin 81 mg Tablet,Chewable 81 mg PO BREAKFAST Qty: 30 0RF amoxicillin-pot clavulanate 875-125 mg Tablet 875 mg PO BIDCM Qty: 5 0RF Rx Instructions: start first dose this evening -take with food metoprolol tartrate 25 mg Tablet 25 mg PO BID Qty: 60 0RF Continued fenofibrate 160 mg tablet 160 mg PO DAILY atorvastatin [Lipitor] 20 mg tablet 20 mg PO DAILY duloxetine 60 mg capsule,delayed release(DR/EC) 60 mg PO BID doxazosin 8 mg tablet 8 mg PO DAILY multivitamin [Multiple Vitamins] Tablet 1 tab PO DAILY acetaminophen [Tylenol Arthritis Pain] 650 mg tablet extended release 650 mg PO TID (DME) Heavy duty shower chair Patient wt: 289lb See Rx Instructions .Route .MEDSUPPLY Qty: 1 0RF Rx Instructions: As directed clopidogrel [Plavix] 75 mg tablet 75 mg PO DAILY Qty: 90 1RF omeprazole 40 mg capsule,delayed release(DR/EC) 40 mg PO DAILY Qty: 90 1RF diltiazem HCl 120 mg capsule,extended release 24hr 120 mg PO BID Discontinued lisinopril 20 mg tablet 20 mg PO DAILY flurbiprofen 100 mg tablet 100 mg PO TID PRN (Reason: pain) Qty: 270 1RF olanzapine 7.5 mg tablet 7.5 mg PO QAM Qty: 90 1RF ropinirole 4 mg tablet 4 mg PO BID Qty: 180 1RF baclofen 20 mg tablet See Rx Instructions .ROUTE .COMPLEX Qty: 450 1RF Rx Instructions: one to one and a half tablets PO QID prn (up to a total of five tablets daily) Referrals / Follow Up: Jose Maria Cardenas MD [Primary Care Provider] - Within 2 Weeks Care Physician,No Primary [Non-Staff] - Disposition Disposition (needs filled in before D/C Order can be placed): Home Health Service Charges/Coding Visit Charges Inpatient E&M: 02008 Disch Hosp
== END 2022-03-11 14:00 | disposition home health service (06) | DRG 871 ==
LOC: ED 15:17 → PCU 15:44 → ICU 23:17 → PCU 03-08 18:14
PROVIDERS: Hospitalist; Internal Medicine Critical Care Medicine; Emergency Provider Emergency Medicine; PCP Family Medicine; Visit Provider Internal Medicine
DX: A41.9 Sepsis, unspecified organism (principal); J96.01 Acute respiratory failure with hypoxia; J69.0 Pneumonitis due to inhalation of food and vomit; N17.9 Acute kidney failure, unspecified; G93.40 Encephalopathy, unspecified; J44.0 Chronic obstructive pulmonary disease with (acute) lower respiratory infection; E87.0 Hyperosmolality and hypernatremia; N39.0 Urinary tract infection, site not specified; I27.20 Pulmonary hypertension, unspecified; R56.9 Unspecified convulsions; I48.0 Paroxysmal atrial fibrillation; R65.20 Severe sepsis without septic shock; I69.922 Dysarthria following unspecified cerebrovascular disease; E78.00 Pure hypercholesterolemia, unspecified; F41.9 Anxiety disorder, unspecified; G47.33 Obstructive sleep apnea (adult) (pediatric); F17.210 Nicotine dependence, cigarettes, uncomplicated; K21.9 Gastro-esophageal reflux disease without esophagitis; Z79.02 Long term (current) use of antithrombotics/antiplatelets; I49.3 Ventricular premature depolarization; Z79.899 Other long term (current) drug therapy; R29.715 NIHSS score 15; G89.4 Chronic pain syndrome; F32.A Depression, unspecified
CPT/HCPCS: 36415; 36600; 70450; 70496; 70498; 70551; 71045; 76770; 80048; 80053; 80061; 80076; 81001; 82140; 82550; 82570; 82803; 82962; 83605; 83735; 84100; 84146; 84300; 84484; 85025; 85610; 85730; 87040; 87070; 87086; 87205; 87449; 87641; 92526; 92610; 93005; 93306; 94640; 94667; 94762; 95819; 97162; 97166; 97530; 97535; 97802; 99251; 99285; J7030; J7050; P9612; Q9957; Q9967; A4216; C8929; G0463; J1940; J2405

== ENCOUNTER → 2022-04-12 | Outpatient (CLI) | payer MEDICARE, SELFPAY ==
--- NOTE | 2022-04-12 13:58 | CDU_ITS ---
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 Velocities/BP Lt. Velocities/BP Prox CCA 62.6/19.2 cm/sec. Prox CCA 86.1/22.3 cm/sec. Mid CCA 57.9/19.2 cm/sec. Mid CCA 72.9/20.1 cm/sec. Dist CCA 57/14.5 cm/sec. Dist CCA 59.7/17.9 cm/sec. Prox ICA 65.5/17.3 cm/sec. Prox ICA 77.3/20.6 cm/sec. Mid ICA 52.2/17.3 cm/sec. Mid ICA 60.8/19 cm/sec. Dist ICA 66.4/29.6 cm/sec. Dist ICA 59.7/21.2 cm/sec. Prox ECA 62.6/14.5 cm/sec. Prox ECA 106.5/26.1 cm/sec. Rt. Vert. 62.6/20.1 cm/sec. Lt. Vert. 44.3/19 cm/sec. Right Extracranial There is homogeneous, smooth atherosclerotic plaque noted in the right common carotid artery. There is homogeneous, smooth atherosclerotic plaque noted in the right internal carotid artery. There is no significant atherosclerotic plaque noted in the right external carotid artery. Antegrade flow is noted in the right vertebral artery. Left Extracranial There is homogeneous, smooth atherosclerotic plaque noted in the left common carotid artery. There is intimal thickening but no significant atherosclerotic plaque noted in the left internal carotid artery. There is no significant atherosclerotic plaque noted in the left external carotid artery. Antegrade flow is noted in the left vertebral artery. Procedure Carotid Duplex 23908. This is a Carotid Duplex examination using B-mode, color flow and specral Doppler. Technically difficult study due to patient body habitus. Unable to rule out distal pseudoaneurysm. Exam performed in department. VL/Carotid Duplex Ultrasound Interpretation Summary Mild (<50%) stenosis right extracranial internal carotid. Normal left extracranial internal carotid. Patent and antegrade vertebrals bilaterally. No visualization of carotid pseudoaneurysm Ordering Physician: Hector Orozco Referring Physician: Jose Maria Cardenas Performed By: Rehana Cornejo RVT
== END | disposition home or self-care (01) ==
LOC: CVS 13:57
PROVIDERS: PCP Family Medicine; Visit Provider Psychiatry & Neurology Neurology
DX: I65.23 Occlusion and stenosis of bilateral carotid arteries (principal); I72.0 Aneurysm of carotid artery; Z86.73 Personal history of transient ischemic attack (TIA), and cerebral infarction without residual deficits
CPT/HCPCS: 93880

== ENCOUNTER 2024-02-27 22:13 | Inpatient (IN) | payer MEDICARE, SELFPAY ==
[2024-02-27] VITALS (15 sets, daily range): BP systolic 135–157; BP diastolic 88–101; PULSE 56–86; RESP 11–20; TEMP -17.7–37; O2SAT 93–99; BMI 34.6; BMI 34.5
--- NOTE | 2024-02-27 22:16 | CT_ITS ---
INDICATION: Neuro deficit, acute, stroke suspected EXAMINATION: CT BRAIN - CT Head Stroke Protocol W/O Contrast Injection TECHNIQUE: Multiple axial images were obtained of the head without intravenous contrast. A radiation dose optimization technique was used for this scan. IV Contrast dosage and agent: None. Radiation Dose (provided by facility) CTDIvol (NA ) mGy, DLP ( NA) mGy-cm COMPARISON: 02/26/2022 FINDINGS: HEMISPHERES: 1. The cerebral parenchyma, ventricular system, subarachnoid spaces have normal configuration and density. There is a normal gyral pattern. There is normal cuevas/white differentiation. No midline shift.. 2. Minimal chronic microvascular deep white matter changes. 3. No intraparenchymal mass, hemorrhage, or acute territorial infarct. CEREBELLUM - BRAINSTEM: The cerebellum, brainstem, basilar and suprasellar cisterns have normal appearance. No Chiari malformation. PITUITARY: Infundibulum and pituitary have normal configuration. Midline structures appear normal. CSF SPACES: Appropriate for age. No hydrocephalus. Basal cisterns are patent. VESSELS: 1. Moderate carotid vascular calcifications. 2. No hyperdense vascular signs noted.. ORBITS AND PARANASAL SINUSES: 1. Normal appearance of the bony orbits. Normal appearance of the globes and retrobulbar soft tissues.. 2. Paranasal sinuses are clear. BONY ELEMENTS: Bony elements of the cranial vault, facial skeleton and skull base have normal appearance. SCALP AND SOFT TISSUES: Normal appearance of the soft tissues of the scalp and the visualized face OTHER: None ASPECTS Score for Acute Strokes: 10 CT/STROKE Brain/Head without Cont IMPRESSION: 1. Stable exam. 2. Minimal chronic microvascular deep white matter disease. 3. No intracranial mass, hemorrhage or acute territorial infarct. 4. No radiographically significant sinus disease.. N.B. : The above Results were Read Back by Alexei Abdalla MD to Po Miller DO, and understanding confirmed on 02/27/2024 22:31:31 (ET). Electronically Signed: Alexei Abdalla MD at 22:33 EST ,
--- NOTE | 2024-02-27 22:16 | EKG12_ITS ---
Test Reason : STROKE Blood Pressure : */* mmHG Vent. Rate : 61 BPM Atrial Rate : 61 BPM P-R Int : 176 ms QRS Dur : 96 ms QT Int : 436 ms P-R-T Axes : 59 45 50 degrees QTcB Int : 438 ms Normal sinus rhythm Normal ECG Confirmed by ESTEPHANIE BARNARD ([id number]), art editor FRANCIE TREJO ([id number]) on 02/29/2024 11:56:03 AM Referred By: ELDON Confirmed By: ESTEPHANIE BARNARD
--- NOTE | 2024-02-27 22:46 | ED.RN ---
this rn takes over care at this time
[2024-02-27 22:49] LABS: Absolute Lymphocyte Count 2.36 X10^3/uL (0.83-4.51); Absolute Neutrophil Count 4.7 X10^3/uL (2.0-7.7); Basophil# 0.06 X10^3/uL; Basophil% 0.8 % (0-1); Eosinophil# 0.17 X10^3/uL; Eosinophils% 2.2 % (0-5); Hematocrit 36.7 % (40-54); Hemoglobin 12.5 g/dL (13.0-16.5); Lymphocyte # 2.36 X10^3/ul (0.83-4.51); Lymphocyte % 30.3 % (19-41); Mean Corp Hgb Conc 34.1 g/dL (32-36); Mean Corpuscular Hgb 30.5 pg (27.0-32.0); Mean Corpuscular Volume 89.5 fL (80-94); Mean Platelet Vol. 9.2 fl (6.2-12.0); Monocyte# 0.46 X10^3/uL; Monocyte% 5.9 % (0-10); NRBC Flagged by Analyzer 0 % (0-5); Neutrophil # 4.69 X10^3/uL (2.7-7.7); Neutrophil % 60.3 % (47-70); Platelet Count 173 K/mm3 (150-450); RBC Distribution Width CV 14.2 % (11.6-14.6); RBC Distribution Width SD 46.3 fl (35.1-43.9); White Blood Count 7.8 K/mm3 (4.4-11.0)
[2024-02-27] MEDS: 0.9% Saline Lock 10 ML Syringe IV ×2 (23:02→23:05)
[2024-02-27] MEDS: Tenecteplase 25 MG in Syringe 1 EACH 3600 MG IV (23:02)
[2024-02-27 23:10] LABS: Prothrombin Time (Protime)PT. 13.5 SECONDS (11.7-14.9)
[2024-02-27] MEDS: MethylPREDNISolone 125 MG/2 ML Vial IV (23:10)
[2024-02-27] MEDS: DiphenhydrAMINE 50 MG/ML Syringe IV (23:10)
[2024-02-27 23:11] LABS: Partial Thromboplast Time 28.2 Seconds (24.1-36.2)
[2024-02-27 23:22] LABS: Amphetamine Urine VISTA NEGATIVE (<1000 ng/mL); Barbiturate Urine VISTA NEGATIVE (< 200 ng/mL); Benzodiazepine Urine VISTA NEGATIVE (< 200 ng/mL); Cocaine Urine VISTA NEGATIVE (< 300 ng/mL); Ecstacy Urine VISTA NEGATIVE (< 500 ng/mL); Methadone Urine VISTA NEGATIVE (< 300 ng/mL); PCP Urine VISTA NEGATIVE (< 25 ng/mL); THC Urine VISTA NEGATIVE (< 50 ng/mL); Vista UDS pH Range 6
[2024-02-27 23:23] LABS: Anion Gap 6 (5-15); BUN 12 mg/dL (7-18); Calcium,Total 8.2 mg/dL (8.5-10.1); Chloride 106 mmol/L (98-107); Creatinine, Serum 0.75 mg/dL (0.70-1.30); EST Glomerular Filtration Rate 113 mL/min (>60); Est Glom Filt Rate - Afr Amer 137 mL/min (>60); Estimated Creatinine Clearance 153.22 ml/min; Glucose 84 mg/dL (74-106); Magnesium 1.6 mg/dL (1.6-2.6); Potassium 3.1 mmol/L (3.5-5.1); Sodium Level 139 mmol/L (136-145)
--- NOTE | 2024-02-27 23:35 | RAD_ITS ---
INDICATION: Neuro deficit, acute, stroke suspected EXAMINATION/TECHNIQUE: X-RAY - XR Chest 1 View COMPARISON: 03/09/2022 FINDINGS: LIFE-SUPPORT AND LINES: 1. None HEART AND VESSELS: The cardiac silhouette, pulmonary vasculature have normal appearance. No evidence of congestive failure. LUNGS AND PLEURAL SPACES: Mild atelectasis at the LEFT lung base. Remaining lung zones clear. No pulmonary mass is noted. MEDIASTINUM AND HILAR REGIONS: No masses adenopathy noted. No areas of calcification. Visualized upper airway is normal in position. BONY ELEMENTS: No acute bony changes noted. RAD/Chest 1 View IMPRESSION: 1. Minimal atelectasis and volume loss at LEFT lung base. 2. No congestive failure, consolidation or effusion. Electronically Signed: Alexei Abdalla MD at 23:48 EST ,
[2024-02-28] VITALS (51 sets, daily range): BP systolic 115–174; BP diastolic 67–105; PULSE 57–106; RESP 12–22; TEMP 36–37.1; O2SAT 88–98; BMI 33.8; BMI 33.9
--- NOTE | 2024-02-28 01:08 | ED.RN ---
This RN found a bed bug on the patients sock at 0030. CT was delayed due to needing to clean the patient and decon him. This RN and César TANK WAGON OPERATOR changed bed sheets and wiped the patient down from head to toe. César double bagged the linens and patient belongings. Patient has a large knee brace that was bagged with linen bags and taped promptly. Only one bed bug was found on the patient. Pt in CT at 0100.
--- NOTE | 2024-02-28 01:22 | ED.RN ---
Pt has some bleeding around urethra, MD aware. Pt saturated one 4x4 in 15 minutes but it has slowed since. Some clots noted around urethra that came out.
[2024-02-28] MEDS: Famotidine 200 MG/20 ML MDV 20 MG in 0.9% Normal Saline (Pres. free 8 ML 300 MG IV ×2 (01:28→01:32)
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
--- NOTE | 2024-02-28 02:07 | EDS_ITS ---
HPI History of Present Illness Chief Complaint: Stroke Alert Informant: patient and EMS Narrative Narrative: Patient is a 58-year-old male who lives at home alone. He has a past medical history of seizure and pseudoseizure disorder as well as previous stroke and previous traumatic brain injury. He follows with neurologist Dr. [facility] in [facility]. He had CT and CTA as well as MRI of the head and neck roughly 2 years ago. 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 Patient states that he drinks 4-6 beers daily and had done that today. He states there was no fall but around 730 he noticed that he was having some pain weakness as well as numbness and tingling into his right arm. He states that as time passed she felt the weakness was progressing to his right leg. Secondary to his previous history of stroke he was concerned and called EMS. Patient states he is on Plavix but denies any true anticoagulation and Coumadin Xarelto or Eliquis. He states there is been no recent surgical procedures no recent trauma and denies any significant GI bleed. However as he had concern for potential stroke EMS was called and he was brought in for evaluation [facility] Medical History CVA (cerebral vascular accident) Pneumonia Stroke Pseudoseizures Vision problems GERD (gastroesophageal reflux disease) Osteoarthritis High triglycerides High cholesterol History of high blood pressure Migraines Headache History of emotional problems Seasonal allergies Home Medications ?Medication ?Instructions ?Recorded ?Last Taken ?Type Heavy duty shower chair #1 ea 09/27/21 Unknown Rx acetaminophen 650 mg 650 mg PO TID pain 09/27/21 Unknown History tablet,extended release (Tylenol Arthritis Pain) atorvastatin 20 mg tablet (Lipitor) 20 mg PO DAILY cholesterol 09/27/21 Unknown History doxazosin 8 mg tablet 8 mg PO DAILY prostate 09/27/21 Unknown History duloxetine 60 mg capsule,delayed 60 mg PO BID mental health 09/27/21 Unknown History release fenofibrate 160 mg tablet 160 mg PO DAILY cholesterol 09/27/21 Unknown History multivitamin (Multiple Vitamins 1 tab PO DAILY vitamin 09/27/21 Unknown History tablet) diltiazem HCl 120 mg 120 mg PO BID heart rate 03/05/22 Unknown History capsule,extended release 24 hr metoprolol tartrate 25 mg tablet 25 mg PO BID #60 tabs 03/11/22 Unknown Rx baclofen 20 mg tablet 20 mg .Route .COMPLEX #450 tabs 12/25/23 Unknown Rx clopidogrel 75 mg tablet (Plavix) 75 mg PO DAILY #90 tabs 12/25/23 Unknown Rx flurbiprofen 100 mg tablet 100 mg PO TID PRN pain #270 tabs 12/25/23 Unknown Rx omeprazole 40 mg capsule,delayed 40 mg PO DAILY #90 caps 12/25/23 Unknown Rx release ropinirole 4 mg tablet 4 mg PO BID #180 tabs 12/25/23 Unknown Rx Allergy/AdvReac Type Severity Reaction Status Date / Time codeine Allergy Hives Verified 12/24/23 14:15 Iodinated Contrast Media Allergy Hives Verified 12/24/23 14:15 (contrast dye - iodinated) Penicillins Allergy Hives Verified 12/24/23 14:15 shellfish derived Allergy Hives Verified 12/24/23 14:15 Family History Sister Anemia Mother Arthritis Hypertension Father Arthritis Hypertension High cholesterol Grandmother Depression Heart disease Thyroid disorder Surgical History History of appendectomy H/O: vasectomy History of tonsillectomy History of ankle surgery Social History Smoking Status: Current every day smoker tobacco type: cigarettes second hand exposure: Yes alcohol intake: current substance use type: does not use [place]/adventist: Jain seatbelt use: always ROS ROS ED Constitutional Constitutional ED: Denies chills or fever(s) Eyes Eyes: Denies blurry vision, change in vision or diplopia ENT ENT ED: Denies sore throat Cardiovascular Cardiovascular: Denies chest pain, palpitations or racing heartbeat Respiratory/Chest Respiratory/Chest: Denies cough or dyspnea Gastrointestinal Gastrointestinal: Denies abdominal pain, diarrhea, nausea or vomiting Genitourinary Genitourinary ED: Denies dysuria Musculoskeletal Musculoskeletal: Reports other Details: Positive right arm pain Integumentary Denies Abrasions or rash Neurologic Neurologic: Reports paresthesias and weakness; Denies headache(s) Hematologic/Lymphatic Hematologic/Lymphatic: Denies easy bleeding or easy bruising EXAM Physical Exam Const Vital Signs: 02/27/24 22:13 02/27/24 22:16 02/27/24 22:20 Temperature 0 F L Temperature Source Oral Pulse Rate 68 68 Respiratory Rate 16 18 Blood Pressure 157/90 H 157/90 H Blood Pressure Mean 112 112 Blood Pressure Source Blood Pressure Position Blood Pressure Location Pulse Ox 98 97 98 Oxygen Delivery Method Nasal Cannula Room Air Nasal Cannula Oxygen Flow Rate (L/min) 2 2 02/27/24 22:28 02/27/24 22:30 02/27/24 22:30 Temperature Temperature Source Pulse Rate 65 70 69 Respiratory Rate 18 14 15 Blood Pressure 152/101 H 152/101 H Blood Pressure Mean 118 118 Blood Pressure Source Blood Pressure Position Blood Pressure Location Pulse Ox 96 95 96 Oxygen Delivery Method Room Air Oxygen Flow Rate (L/min) 02/27/24 22:45 02/27/24 22:48 02/27/24 23:00 Temperature 98.6 F Temperature Source Oral Pulse Rate 66 67 Respiratory Rate 20 H 18 Blood Pressure 137/98 H 137/98 H 135/89 H Blood Pressure Mean 111 111 105 Blood Pressure Source Blood Pressure Position Blood Pressure Location Pulse Ox 93 97 Oxygen Delivery Method Room Air Oxygen Flow Rate (L/min) 02/27/24 23:02 02/27/24 23:14 02/27/24 23:15 Temperature 97.8 F 97.0 F L Temperature Source Core Core Pulse Rate 63 63 Respiratory Rate 18 14 Blood Pressure 135/89 H 135/88 H 150/97 H Blood Pressure Mean 103 114 Blood Pressure Source Monitor Blood Pressure Position Supine Blood Pressure Location Left Arm Pulse Ox 96 97 Oxygen Delivery Method Room Air Room Air Oxygen Flow Rate (L/min) 02/27/24 23:15 02/27/24 23:30 02/27/24 23:30 Temperature 98.6 F Temperature Source Core Pulse Rate 62 86 69 Respiratory Rate 17 18 18 Blood Pressure 150/97 H 149/94 H 149/94 H Blood Pressure Mean 111 112 111 Blood Pressure Source Monitor Blood Pressure Position Supine Blood Pressure Location Left Arm Pulse Ox 94 99 Oxygen Delivery Method Room Air Oxygen Flow Rate (L/min) 02/27/24 23:40 02/27/24 23:45 02/27/24 23:49 Temperature 97.4 F L Temperature Source Core Pulse Rate 62 69 56 L Respiratory Rate 18 15 11 L Blood Pressure 151/101 H 151/101 H Blood Pressure Mean 117 117 Blood Pressure Source Monitor Blood Pressure Position Semi-Fowlers Blood Pressure Location Right Arm Pulse Ox 95 96 95 Oxygen Delivery Method Room Air Oxygen Flow Rate (L/min) 02/28/24 00:00 02/28/24 00:00 02/28/24 00:00 Temperature 97.8 F Temperature Source Core Pulse Rate 62 69 Respiratory Rate 18 19 H Blood Pressure 150/98 H 150/98 H 150/98 H Blood Pressure Mean 115 115 115 Blood Pressure Source Monitor Blood Pressure Position Semi-Fowlers Blood Pressure Location Right Arm Pulse Ox 93 92 Oxygen Delivery Method Room Air Oxygen Flow Rate (L/min) 02/28/24 00:15 02/28/24 00:15 02/28/24 00:16 Temperature 97.6 F L Temperature Source Core Pulse Rate 70 66 62 Respiratory Rate 21 H 18 20 H Blood Pressure 157/103 H 160/105 H 158/105 H Blood Pressure Mean 121 123 121 Blood Pressure Source Monitor Blood Pressure Position Semi-Fowlers Blood Pressure Location Pulse Ox 93 90 Oxygen Delivery Method Room Air Oxygen Flow Rate (L/min) 02/28/24 00:19 02/28/24 00:30 02/28/24 00:30 Temperature 97.1 F L Temperature Source Core Pulse Rate 69 62 58 L Respiratory Rate 18 16 20 H Blood Pressure 157/103 H 163/103 H Blood Pressure Mean 121 123 Blood Pressure Source Monitor Blood Pressure Position Semi-Fowlers Blood Pressure Location Right Arm Pulse Ox 97 96 Oxygen Delivery Method Room Air Oxygen Flow Rate (L/min) 02/28/24 00:38 02/28/24 00:38 02/28/24 00:45 Temperature 97.2 F L Temperature Source Core Pulse Rate 59 L 78 Respiratory Rate 19 H 18 Blood Pressure 163/103 H 163/103 H 158/96 H Blood Pressure Mean 122 122 116 Blood Pressure Source Monitor Blood Pressure Position Semi-Fowlers Blood Pressure Location Right Arm Pulse Ox 94 Oxygen Delivery Method Room Air Oxygen Flow Rate (L/min) 02/28/24 00:45 02/28/24 00:50 02/28/24 00:51 Temperature Temperature Source Pulse Rate 63 61 57 L Respiratory Rate 13 20 H 14 Blood Pressure 158/96 H Blood Pressure Mean 115 Blood Pressure Source Blood Pressure Position Blood Pressure Location Pulse Ox Oxygen Delivery Method Oxygen Flow Rate (L/min) 02/28/24 00:58 02/28/24 01:00 02/28/24 01:00 Temperature 97.5 F L 97.5 F L Temperature Source Core Pulse Rate 78 75 Respiratory Rate 18 18 Blood Pressure 158/96 H 137/99 H 137/99 H Blood Pressure Mean 116 111 111 Blood Pressure Source Monitor Blood Pressure Position Semi-Fowlers Blood Pressure Location Right Arm Pulse Ox 94 94 Oxygen Delivery Method Room Air Oxygen Flow Rate (L/min) 02/28/24 01:15 02/28/24 01:15 02/28/24 01:17 Temperature 97.5 F L Temperature Source Core Pulse Rate 63 59 L Respiratory Rate 16 12 Blood Pressure 154/92 H 154/92 H Blood Pressure Mean 112 112 Blood Pressure Source Monitor Blood Pressure Position Semi-Fowlers Blood Pressure Location Right Arm Pulse Ox 92 94 Oxygen Delivery Method Room Air Oxygen Flow Rate (L/min) 02/28/24 01:30 02/28/24 01:30 02/28/24 01:45 Temperature 97.9 F 98.1 F Temperature Source Oral Oral Pulse Rate 63 58 L 61 Respiratory Rate 13 19 H 17 Blood Pressure 147/92 H 147/92 H 132/90 H Blood Pressure Mean 110 108 104 Blood Pressure Source Monitor Monitor Blood Pressure Position Semi-Fowlers Semi-Fowlers Blood Pressure Location Right Arm Right Arm Pulse Ox 92 91 94 Oxygen Delivery Method Room Air Room Air Oxygen Flow Rate (L/min) 02/28/24 01:45 02/28/24 02:00 02/28/24 02:00 Temperature 98.5 F Temperature Source Core Pulse Rate 63 60 Respiratory Rate 15 20 H Blood Pressure 132/90 H 136/95 H Blood Pressure Mean 103 108 Blood Pressure Source Monitor Blood Pressure Position Semi-Fowlers Blood Pressure Location Right Arm Pulse Ox 92 94 88 Oxygen Delivery Method Nasal Cannula Room Air Oxygen Flow Rate (L/min) 2 02/28/24 02:00 02/28/24 02:15 02/28/24 02:15 Temperature 98.1 F Temperature Source Core Pulse Rate 68 65 61 Respiratory Rate 18 19 H 16 Blood Pressure 136/95 H 135/92 H 134/92 H Blood Pressure Mean 108 106 106 Blood Pressure Source Monitor Blood Pressure Position Semi-Fowlers Blood Pressure Location Right Arm Pulse Ox 91 95 96 Oxygen Delivery Method Nasal Cannula Oxygen Flow Rate (L/min) 2 02/28/24 02:30 02/28/24 02:30 02/28/24 02:45 Temperature 98.1 F Temperature Source Core Pulse Rate 63 57 L 65 Respiratory Rate 15 20 H 19 H Blood Pressure 141/88 H 141/88 H 144/88 H Blood Pressure Mean 105 105 105 Blood Pressure Source Monitor Blood Pressure Position Semi-Fowlers Blood Pressure Location Right Arm Pulse Ox 98 95 95 Oxygen Delivery Method Nasal Cannula Oxygen Flow Rate (L/min) 2 02/28/24 02:49 02/28/24 03:00 02/28/24 03:00 Temperature 98.1 F 98.3 F Temperature Source Core Core Pulse Rate 73 64 64 Respiratory Rate 15 19 H 18 Blood Pressure 144/88 H 137/97 H 137/97 H Blood Pressure Mean 106 110 110 Blood Pressure Source Monitor Monitor Blood Pressure Position Semi-Fowlers Semi-Fowlers Blood Pressure Location Right Arm Right Arm Pulse Ox 97 94 94 Oxygen Delivery Method Nasal Cannula Nasal Cannula Oxygen Flow Rate (L/min) 2 2 Positive well nourished, well developed and obese General Appearance ED: well developed; Negative for pallor Nutritional Appearance: obese HEENT HEENT Narrative: Normocephalic atraumatic No signs of depressed or basilar skull fracture No tongue or cheek biting to suggest seizure activity No tongue or lip swelling no oral lesions no airway edema or compromise No secondary findings in the posterior pharynx to suggest infection Eyes PERRL and EOMs intact bilaterally General Eye ED: Negative for scleral icterus Neck supple Neck Narrative: No nuchal rigidity or meningeal signs noted Resp normal respiratory effort Resp Narrative: Breath sounds are diminished throughout with faint wheezing rhonchi in the bilateral lower lobes but no signs of respiratory distress Cardio regular rate and regular rhythm Rate: other Other Details: Radial and carotid pulses are equal and symmetric GI normal to inspection, nondistended, normoactive bowel sounds, non-tender, non- distended and no masses GI Narrative: No voluntary guarding or rigidity or pulsatile mass Auscultation: normoactive bowel sounds Palpation: soft Extremity Extremity Narrative: Patient has a brace in place to the right leg. He states that this is needed because he has chronic weakness of the right leg compared to the left and he cannot ambulate without it on. Otherwise he has no asymmetric edema or pitting edema and there are no signs of long bone injury Neuro oriented x3 Neuro Narrative: GCS of 14; patient is resting with his eyes closed but will awake to voice Patient has asymmetric weakness of the right arm and right leg compared to the left. He receives a score of 3 for his right arm and a score of 2 for his right leg weakness. There is mild slurring of speech noted as well which gives him a score of 1. No obvious facial droop/weakness. He has ataxia of the right arm and leg for a score of 2. Patient also has mild sensory change in the right arm for a score of 1. Total NIH stroke scale score of 9 Sensorium / Orientation: alert Psych Psych Narrative: Patient has a flat affect Skin no rashes or lesions noted General Skin Exam: Negative for jaundice or pallor MDM MDM MDM Narrative Medical decision making narrative: Patient arrived to the ER hypertensive but otherwise with stable vitals. His onset of symptoms was unwitnessed but he reported that he began feeling symptoms around 7:30 PM. As it was localized to the right side and he did have mild dysarthria coupled with unilateral extremity weakness and sensory change a stroke alert was activated. The patient was evaluated by teleneurology. They feel that as the patient is certain his symptoms began around 730 he is within the TNK window and based on his elevated stroke scale score without contraindication I do recommend he be given. Therefore the patient was medicated with TNK. Please note that we did discuss providing the medication with his sister who agrees with the administration of the drug. The patient has a contrast allergy but he states that if he receives Benadryl and Solu-Medrol he can undergo the scan. Therefore this was performed as telemetry neurology recommends that if there is LVO he would still require transfer to a higher level of care. The CTA revealed a pseudoaneurysm which she has had and is roughly stable to 2 years ago but no signs of LVO. After receiving TN K the patient did have moderate improvement of his right arm and leg strength as well as slurred speech indicating this was an acute CVA. At this time as he will need to be watched regarding potential of internal bleeding because of the TNK as well as the fact that the stroke workup will need to be completed the hospitalist was contacted. They do agree to accept the patient at this time for further care Please note the patient reports he drinks 4-6 beers per night and states that he has not been in withdrawal but with his admission there is a potential that he could go through withdrawal and there her phenobarbital will be added to prevent such event History & Record Review Discussion w/independent historian: EMS personnel and Patient Lab Data Attestation: I reviewed the patient's lab results. Labs: Laboratory Results - last 24 hr 02/27/24 02/27/24 22:20 22:30 WBC 7.8 RBC 4.10 L Hgb 12.5 L Hct 36.7 L MCV 89.5 MCH 30.5 MCHC 34.1 RDW Std Deviation 46.3 H RDW Coeff of Keith 14.2 Plt Count 173 MPV 9.2 Immature Gran % (Auto) 0.500 Neut % (Auto) 60.3 Lymph % (Auto) 30.3 [place] % (Auto) 5.9 Eos % (Auto) 2.2 Baso % (Auto) 0.8 Absolute Neuts (auto) 4.7 Absolute Lymphs (auto) 2.36 Nucleated RBC % 0 PT 13.5 INR 1.0 APTT 28.2 Sodium 139 Potassium 3.1 L Chloride 106 Carbon Dioxide 27.0 Anion Gap 6 BUN 12 Creatinine 0.75 Estim Creat Clear Calc 153.22 Est GFR (MDRD) Af Amer 137 Est GFR (MDRD) Non-Af 113 BUN/Creatinine Ratio 16.0 Glucose 84 Calcium 8.2 L Magnesium 1.6 TSH 2.040 Urine Opiates Screen NEGATIVE Urine Methadone Screen NEGATIVE Ur Barbiturates Screen NEGATIVE Ur Phencyclidine Scrn NEGATIVE Ur Amphetamines Screen NEGATIVE MDMA (Ecstasy) Screen NEGATIVE U Benzodiazepines Scrn NEGATIVE Urine Cocaine Screen NEGATIVE U Cannabinoids Screen NEGATIVE Ur Drug Screen Comment Ethyl Alcohol 98.0 Radiography Diagnostic Testing: Clinical Impression(s) from Imaging Studies Brain CT 02/27/24 22:16 IMPRESSION: 1. Stable exam. 2. Minimal chronic microvascular deep white matter disease. 3. No intracranial mass, hemorrhage or acute territorial infarct. 4. No radiographically significant sinus disease.. N.B. : The above Results were Read Back by Alexei Abdalla MD to Po Miller DO, and understanding confirmed on 02/27/2024 22:31:31 (ET). Electronically Signed: Aleexi Abdalla MD at 22:33 EST , ADDENDUM: 02/27/24 2240 IMPRESSION: 1. Stable exam. 2. Minimal chronic microvascular deep white matter disease. 3. No intracranial mass, hemorrhage or acute territorial infarct. 4. No radiographically significant sinus disease.. N.B. : The above Results were Read Back by Alexei Abdalla MD to Po Miller DO, and understanding confirmed on 02/27/2024 22:31:31 (ET). Electronically Signed: Alexei Abdalla MD at 22:33 EST , Chest X-Ray 02/27/24 23:35 IMPRESSION: 1. Minimal atelectasis and volume loss at LEFT lung base. 2. No congestive failure, consolidation or effusion. Electronically Signed: Alexei Abdalla MD at 23:48 EST , Chest x-ray as interpreted by emergency medicine physician reveals low lung volumes without obvious infiltrate pneumothorax or pleural effusion Management Discussion w/another healthcare provider: Hospitalist, Billiard Player and Radiologist Discharge Plan Dx/Rx/DC Orders Clinical Impression: Acute cerebrovascular accident (CVA), Pseudoaneurysm of carotid artery, Hypokalemia, Alcohol abuse, Seizure disorder Disposition Disposition: Acute Care Hospital [facility] Discharge Date/Time: 02/28/24 03:21
[2024-02-28] MEDS: Phenobarbital Sodium 130 MG/ML Vial 100 MG IV (02:45)
[2024-02-28] MEDS: Potassium Chloride Oral Tablet 20 MEQ 60 MEQ PO (04:22)
[2024-02-28] MEDS: Phenobarbital 32.4 MG Tablet 64.8 MG PO ×5 (04:22→20:22)
[2024-02-28] MEDS: 0.9% Normal Saline (1000mL) 1,000 ML 70 ML IV (04:22)
[2024-02-28 04:24] LABS: Cholesterol 125 mg/dL (200); High Density Lipoprotein 40 mg/dL; Triglycerides 97 mg/dL; Very Low Density Lipoprotein 19 mg/dL (5-40)
--- NOTE | 2024-02-28 07:39 | ECHOCS_ITS ---
Reason For Study: CVA Procedure This was a 2D Doppler, Color Flow transthoracic echocardiogram. The study was technically difficult. Contrast injection was performed. Exam performed portable in ICU/CCU. Left Ventricle Normal LV size. Left ventricular systolic function is hyperdynamic. The estimated ejection fraction is 70 %. Stage 1 diastolic dysfunction. Right Ventricle Normal RV size. Normal systolic function. Atria Normal left atrium. Normal right atrium. Mitral Valve The mitral valve is structurally normal. No prolapse or stenosis seen. Tricuspid Valve Normal tricuspid valve. Aortic Valve Trisinus/trileaflet aortic valve. Pulmonic Valve The pulmonic valve is not well visualized. Great Vessels Normal aortic root. Pericardium/Pleural No pericardial effusion. Medication Diluted definity 3ml given slow IV push to enhance endocardial definition. Previous NEGATIVE Bubble (2021). MMode/2D Measurements & Calculations LVIDd: 5.9 cm IVSd: 1.1 cm LA dimension: 4.2 cm LVIDs: 3.7 cm LVPWd: 0.98 cm FS: 37.6 % LAV(MOD-bp): 59.0 ml LA A4 area: 18.8 cm2 LA dimension(2D): 4.0 cm LAV(MOD-bp) Indexed: 23.6 ml/m2 LAV(MOD-sp2): 66.9 ml LAV(MOD-sp4): 45.9 ml RA A4 area: 18.9 cm2 Time Measurements MV dec time: 0.17 sec Doppler Measurements & Calculations MV E max ivan: 49.9 cm/sec Lat Peak E' Ivan: 10.6 cm/sec Med Peak E' Ivan: 8.3 cm/sec MV A max ivan: 87.3 cm/sec E/E' lat: 4.7 E/E' med: 6.0 MV E/A: 0.57 MV V2 max: 100.0 cm/sec MV P1/2t max ivan: 75.5 cm/sec Ao V2 max: 154.1 cm/sec MV max P.0 mmHg MV P1/2t: 59.7 msec Ao max P.5 mmHg MV V2 mean: 58.2 cm/sec MV dec slope: 370.6 cm/sec2 MV mean P.6 mmHg MV V2 VTI: 16.4 cm MVA(P1/2t): 3.7 cm2 LV V1 max: 127.2 cm/sec LV V1 max P.5 mmHg ECHO/Echo Complete W/ Contrast Interpretation Summary The estimated ejection fraction is 70 %. Stage 1 diastolic dysfunction. Structually normal valves. The study was technically difficult. Contrast injection was performed. Ordering Physician: Kyle Tyler Performed By: Martin Mijares RCS
[2024-02-28 08:01] LABS: Magnesium 1.9 mg/dL (1.6-2.6); Phosphorus 3.3 mg/dL (2.5-4.9)
[2024-02-28] MEDS: DULoxetine Hcl 60 MG Capsule PO ×2 (08:24→20:27)
[2024-02-28] MEDS: Doxazosin 4 MG Tablet 8 MG PO (08:24)
[2024-02-28] MEDS: Thiamine Hydrochloride 100 MG Tablet PO (08:24)
[2024-02-28] MEDS: Multivitamins,Therapeutic Tablet 1 TABLET PO (08:24)
[2024-02-28] MEDS: 0.9% Saline Lock 10 ML Syringe IV (08:24)
[2024-02-28] MEDS: Folic Acid 1 MG Tablet PO (08:25)
[2024-02-28] MEDS: Pramipexole Di-HCl 0.5 MG Tablet 1.5 MG PO ×2 (08:25→20:26)
[2024-02-28] MEDS: Fenofibrate 145 MG Tablet PO (08:25)
[2024-02-28] MEDS: Pantoprazole Sodium 40 MG Tablet PO (08:25)
--- NOTE | 2024-02-28 09:29 | EX.PCM.CONCC ---
Assessment & Plan Assessment/Plan (1) History of CVA (cerebrovascular accident): PLAN: Plan RECOMMENDATIONS: 1. Follow-up head imaging as ordered in 24 hours. 2. Obtain echocardiogram. 3. Phenobarbital taper for alcohol withdrawal. 4. Continue thiamine and folic acid. 5. Urology consultation to address hematuria. IMPRESSIONS: 1. Acute CVA status post TNK Continue routine monitoring per protocol. Plan for follow-up head imaging at 24 hours. Obtain echocardiogram. Maintain blood pressure less than 185/110 mmHg. PT/OT evaluations tomorrow. Neurology to follow-up with the patient. 2. Hematuria related to traumatic Casey insertion Exacerbated by TNK administration. Recommend urology consultation to assist with management. 3. Chronic alcohol dependency Continue monitoring per [facility] protocol. Continue phenobarbital taper, thiamine and folic acid repletion. 4. History of prior CVA/history of pseudoseizures/hypertension/GERD/tobacco dependency/obesity Complicates care, management, recovery and prognosis. Continue home medications as indicated. This note was generated with [employer] dictation software. It may contain incorrect words, spelling, and punctuation that were not noted in checking the note before signing. HPI Consult Data Date of Consult: 02/28/24 HPI Narrative Reason for Consultation: CVA status post TNK HPI Narrative: The patient is a 58-year-old male, with a history as outlined below, who presented to the emergency department on February 26 with weakness and numbness involving his right arm. The patient's medical history is also significant for chronic alcohol dependency/history of CVA, history of pseudoseizures, GERD and hyperlipidemia. The patient typically drinks 4-6 beers per day. On presentation to the emergency department, the patient was documented to be afebrile and hemodynamically stable. Laboratory evaluation revealed a normal white blood cell count. Chemistry profile was notable for a potassium of 3.1. Toxicology screen was negative. Alcohol level was noted to be 98. CT and CTA head and neck were obtained. There is no evidence for acute infarction. No large vessel occlusion was identified. The patient was seen in consultation by neurology and the decision was made to administer TNK. The patient was subsequently admitted to the medical intensive care unit, per protocol. This morning, I was notified by nursing staff that the patient was having significant hematuria and had developed a new onset headache. Therefore, urology consultation was placed and follow-up head imaging was obtained. [facility] Medical History CVA (cerebral vascular accident) Pneumonia Stroke Pseudoseizures Vision problems GERD (gastroesophageal reflux disease) Osteoarthritis High triglycerides High cholesterol History of high blood pressure Migraines Headache History of emotional problems Seasonal allergies Home Medications ?Medication ?Instructions ?Recorded ?Last Taken ?Type Heavy duty shower chair #1 ea 09/27/21 Unknown Rx acetaminophen 650 mg 650 mg PO TID pain 09/27/21 Unknown History tablet,extended release (Tylenol Arthritis Pain) atorvastatin 20 mg tablet (Lipitor) 20 mg PO DAILY cholesterol 09/27/21 Unknown History doxazosin 8 mg tablet 8 mg PO DAILY prostate 09/27/21 Unknown History duloxetine 60 mg capsule,delayed 60 mg PO BID mental health 09/27/21 Unknown History release fenofibrate 160 mg tablet 160 mg PO DAILY cholesterol 09/27/21 Unknown History multivitamin (Multiple Vitamins 1 tab PO DAILY vitamin 09/27/21 Unknown History tablet) diltiazem HCl 120 mg 120 mg PO BID heart rate 03/05/22 Unknown History capsule,extended release 24 hr metoprolol tartrate 25 mg tablet 25 mg PO BID #60 tabs 03/11/22 Unknown Rx baclofen 20 mg tablet 20 mg .Route .COMPLEX #450 tabs 12/25/23 Unknown Rx clopidogrel 75 mg tablet (Plavix) 75 mg PO DAILY #90 tabs 12/25/23 Unknown Rx flurbiprofen 100 mg tablet 100 mg PO TID PRN pain #270 tabs 12/25/23 Unknown Rx omeprazole 40 mg capsule,delayed 40 mg PO DAILY #90 caps 12/25/23 Unknown Rx release ropinirole 4 mg tablet 4 mg PO BID #180 tabs 12/25/23 Unknown Rx Allergy/AdvReac Type Severity Reaction Status Date / Time codeine Allergy Hives Verified 12/24/23 14:15 Iodinated Contrast Media Allergy Hives Verified 12/24/23 14:15 (contrast dye - iodinated) Penicillins Allergy Hives Verified 12/24/23 14:15 shellfish derived Allergy Hives Verified 12/24/23 14:15 Family History Sister Anemia Mother Arthritis Hypertension Father Arthritis Hypertension High cholesterol Grandmother Depression Heart disease Thyroid disorder Surgical History History of appendectomy H/O: vasectomy History of tonsillectomy History of ankle surgery Social History Smoking Status: Current every day smoker tobacco type: cigarettes second hand exposure: Yes alcohol intake: current substance use type: does not use [place]/episcopalian: Jewish seatbelt use: always ROS ROS Narrative 10 systems were reviewed with pertinent positives as noted in the HPI above. Physical Exam Const alert and no apparent distress General Appearance: cooperative HEENT normocephalic, head/scalp atraumatic and moist oral mucous membranes Eyes PERRL, EOMs intact bilaterally and conjunctivae normal Neck supple General: trachea midline Chest inspection of chest normal Resp normal respiratory effort Auscultation: Negative for rales, rhonchi or wheezes Cardio regular rate and regular rhythm GI normal to inspection, nondistended, normoactive bowel sounds Extremity no clubbing, cyanosis or edema Skin no rashes or lesions noted Neuro moves all extremities and no focal motor deficits Psych Mood & Affect: flat affect Lab / Micro Data 02/27/24 22:20 02/27/24 22:20 Labs: Laboratory Results - last 24 hr 02/27/24 22:20: WBC 7.8, RBC 4.10 L, Hgb 12.5 L, Hct 36.7 L, MCV 89.5, MCH 30.5, MCHC 34.1, RDW Std Deviation 46.3 H, RDW Coeff of Keith 14.2, Plt Count 173, MPV 9.2, Immature Gran % (Auto) 0.500, Neut % (Auto) 60.3, Lymph % (Auto) 30.3, [place] % (Auto) 5.9, Eos % (Auto) 2.2, Baso % (Auto) 0.8, Absolute Neuts (auto) 4.7, Absolute Lymphs (auto) 2.36, Nucleated RBC % 0, PT 13.5, INR 1.0, APTT 28.2, Sodium 139, Potassium 3.1 L, Chloride 106, Carbon Dioxide 27.0, Anion Gap 6, BUN 12, Creatinine 0.75, Estim Creat Clear Calc 153.22, Est GFR (MDRD) Af Amer 137, Est GFR (MDRD) Non-Af 113, BUN/Creatinine Ratio 16.0, Glucose 84, Calcium 8.2 L, Magnesium 1.6, TSH 2.040, Ethyl Alcohol 98.0 02/27/24 22:30: Urine Opiates Screen NEGATIVE, Urine Methadone Screen NEGATIVE, Ur Barbiturates Screen NEGATIVE, Ur Phencyclidine Scrn NEGATIVE, Ur Amphetamines Screen NEGATIVE, MDMA (Ecstasy) Screen NEGATIVE, U Benzodiazepines Scrn NEGATIVE, Urine Cocaine Screen NEGATIVE, U Cannabinoids Screen NEGATIVE, Ur Drug Screen Comment 02/28/24 03:50: Phosphorus 3.3, Magnesium 1.9, Triglycerides 97, Cholesterol 125, LDL Cholesterol 66, VLDL Cholesterol 19, HDL Cholesterol 40, Blood Type A POSITIVE, Antibody Screen NEGATIVE Imaging Radiology Impression Brain CT 02/27/24 22:16 IMPRESSION: 1. Stable exam. 2. Minimal chronic microvascular deep white matter disease. 3. No intracranial mass, hemorrhage or acute territorial infarct. 4. No radiographically significant sinus disease.. N.B. : The above Results were Read Back by Alexei Abdalla MD to Po Miller DO, and understanding confirmed on 02/27/2024 22:31:31 (ET). Electronically Signed: Alexei Abdalla MD at 22:33 EST , ADDENDUM: 02/27/24 2240 IMPRESSION: 1. Stable exam. 2. Minimal chronic microvascular deep white matter disease. 3. No intracranial mass, hemorrhage or acute territorial infarct. 4. No radiographically significant sinus disease.. N.B. : The above Results were Read Back by Alexei Abdalla MD to Po Miller DO, and understanding confirmed on 02/27/2024 22:31:31 (ET). Electronically Signed: Alexei Abdalla MD at 22:33 EST , Chest X-Ray 02/27/24 23:35 IMPRESSION: 1. Minimal atelectasis and volume loss at LEFT lung base. 2. No congestive failure, consolidation or effusion. Electronically Signed: Alexei Abdalla MD at 23:48 EST , Head/Neck CTA 02/28/24 22:58 IMPRESSION: 1. No large vessel occlusion or significant intracranial vascular abnormality. 2. 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 The neck of the aneurysm measures approximately 4 mm. No active bleeding identified. 3. Mild atherosclerotic changes right intracavernous internal carotid artery without hemodynamic significant stenosis. 4. Mild atherosclerotic changes left intracavernous internal carotid artery without hemodynamic significant stenosis. 5. Azygous type anterior cerebral artery. Electronically Signed: Alex Luis MD at 1:47 EST , ADDENDUM: 02/28/24 0156 IMPRESSION: 1. No large vessel occlusion or significant intracranial vascular abnormality. 2. 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 The neck of the aneurysm measures approximately 4 mm. No active bleeding identified. 3. Mild atherosclerotic changes right intracavernous internal carotid artery without hemodynamic significant stenosis. 4. Mild atherosclerotic changes left intracavernous internal carotid artery without hemodynamic significant stenosis. 5. Azygous type anterior cerebral artery. N.B. : The above Results were Read Back by Alex Luis MD to Po Miller DO, and understanding confirmed on 02/28/2024 01:50:02 (ET). Electronically Signed: Alex Luis MD at 1:47 EST , ADDENDUM: 02/28/24 0158 IMPRESSION: undefined Charges/Coding Visit Charges Inpatient E&M: 21055 Init Hosp L3
--- NOTE | 2024-02-28 10:07 | CT_ITS ---
STUDY: CT BRAIN WITHOUT CONTRAST REASON FOR EXAM: Male, 58 years old. [facility] s/p [facility] RADIATION DOSAGE (If Supplied By Facility): CTDIvol = ( 44.99 ) mGy, DLP = ( 779.24 ) mGycm TECHNIQUE: Transaxial CT imaging of the brain was performed without administration of intravenous contrast material. Individualized dose optimization techniques were used for this CT. COMPARISON: Comparison is made with prior study dated February 27, 2024. FINDINGS: Normal soft tissue structures. Normal calvarium. There is mild cerebral atrophy with widening of the extra-axial spaces and ventricular dilatation. Normal white matter tracts of the cerebral hemispheres. Normal basal ganglia and thalami. Normal brainstem. Normal cerebellum. There is no intracranial hemorrhage. There are no findings of an acute ischemic infarction. Atherosclerotic plaque formation of the cavernous portions of the internal carotid arteries bilaterally. Normal visualized paranasal sinuses. CT/Brain/Head without Contrast IMPRESSION: Chronic involutional changes of the brain. Electronically Signed: Matt Walker MD at 10:48 EST ,
--- NOTE | 2024-02-28 10:30 | NURSING ---
Dr. Vasquez at bedside. Updated on patient having hematuria with clots. Catheter manually irrigated several times with no relief of lower abdominal discomfort. Bladder scanned for over 800ml. Dr Vasquez made aware pt received TNK at [address] Vasquez consultation note.
[2024-02-28 10:37] LABS: Hemoglobin A1c 4.8 % (3.8-5.6)
--- NOTE | 2024-02-28 10:41 | CON.PCM.UR_ITS ---
HPI Consult Data Date of Consult: 02/28/24 HPI Narrative Reason for Consultation: Gross hematuria Casey trauma HPI Narrative: ANDREA MCLAUGHLIN, is a 58 M who presents to the hospital he is on a significant blood thinner and I guess it looks like a catheter was put in but not all the way and and he has significant bleeding so I took out this catheter out then was put a Glidewire and the wire was able to get all the way to the prostate and over the wire went in with a 16 Q[place] white earth tip catheter. Did get a heavy return of urine and also some bloody urine the nurses can flush it manually as needed but I would not remove manipulate the catheter. [facility] Medical History CVA (cerebral vascular accident) Pneumonia Stroke Pseudoseizures Vision problems GERD (gastroesophageal reflux disease) Osteoarthritis High triglycerides High cholesterol History of high blood pressure Migraines Headache History of emotional problems Seasonal allergies Home Medications ?Medication ?Instructions ?Recorded ?Last Taken ?Type Heavy duty shower chair #1 ea 09/27/21 Unknown Rx acetaminophen 650 mg 650 mg PO TID pain 09/27/21 Unknown History tablet,extended release (Tylenol Arthritis Pain) atorvastatin 20 mg tablet (Lipitor) 20 mg PO DAILY cholesterol 09/27/21 Unknown History doxazosin 8 mg tablet 8 mg PO DAILY prostate 09/27/21 Unknown History duloxetine 60 mg capsule,delayed 60 mg PO BID mental health 09/27/21 Unknown History release fenofibrate 160 mg tablet 160 mg PO DAILY cholesterol 09/27/21 Unknown History multivitamin (Multiple Vitamins 1 tab PO DAILY vitamin 09/27/21 Unknown History tablet) diltiazem HCl 120 mg 120 mg PO BID heart rate 03/05/22 Unknown History capsule,extended release 24 hr metoprolol tartrate 25 mg tablet 25 mg PO BID #60 tabs 03/11/22 Unknown Rx baclofen 20 mg tablet 20 mg .Route .COMPLEX #450 tabs 12/25/23 Unknown Rx clopidogrel 75 mg tablet (Plavix) 75 mg PO DAILY #90 tabs 12/25/23 Unknown Rx flurbiprofen 100 mg tablet 100 mg PO TID PRN pain #270 tabs 12/25/23 Unknown Rx omeprazole 40 mg capsule,delayed 40 mg PO DAILY #90 caps 12/25/23 Unknown Rx release ropinirole 4 mg tablet 4 mg PO BID #180 tabs 12/25/23 Unknown Rx Allergy/AdvReac Type Severity Reaction Status Date / Time codeine Allergy Hives Verified 12/24/23 14:15 Iodinated Contrast Media Allergy Hives Verified 12/24/23 14:15 (contrast dye - iodinated) Penicillins Allergy Hives Verified 12/24/23 14:15 shellfish derived Allergy Hives Verified 12/24/23 14:15 Family History Sister Anemia Mother Arthritis Hypertension Father Arthritis Hypertension High cholesterol Grandmother Depression Heart disease Thyroid disorder Surgical History History of appendectomy H/O: vasectomy History of tonsillectomy History of ankle surgery Social History Smoking Status: Current every day smoker tobacco type: cigarettes second hand exposure: Yes alcohol intake: current substance use type: does not use [place]/restorationism: Druze seatbelt use: always Lab / Micro Data 02/27/24 22:20 02/27/24 22:20 Labs: Laboratory Results - last 24 hr 02/27/24 22:20: WBC 7.8, RBC 4.10 L, Hgb 12.5 L, Hct 36.7 L, MCV 89.5, MCH 30.5, MCHC 34.1, RDW Std Deviation 46.3 H, RDW Coeff of Keith 14.2, Plt Count 173, MPV 9.2, Immature Gran % (Auto) 0.500, Neut % (Auto) 60.3, Lymph % (Auto) 30.3, [place] % (Auto) 5.9, Eos % (Auto) 2.2, Baso % (Auto) 0.8, Absolute Neuts (auto) 4.7, Absolute Lymphs (auto) 2.36, Nucleated RBC % 0, PT 13.5, INR 1.0, APTT 28.2, Sodium 139, Potassium 3.1 L, Chloride 106, Carbon Dioxide 27.0, Anion Gap 6, BUN 12, Creatinine 0.75, Estim Creat Clear Calc 153.22, Est GFR (MDRD) Af Amer 137, Est GFR (MDRD) Non-Af 113, BUN/Creatinine Ratio 16.0, Glucose 84, Hemoglobin A1c 4.8, Calcium 8.2 L, Magnesium 1.6, TSH 2.040, Ethyl Alcohol 98.0 02/27/24 22:30: Urine Opiates Screen NEGATIVE, Urine Methadone Screen NEGATIVE, Ur Barbiturates Screen NEGATIVE, Ur Phencyclidine Scrn NEGATIVE, Ur Amphetamines Screen NEGATIVE, MDMA (Ecstasy) Screen NEGATIVE, U Benzodiazepines Scrn NEGATIVE, Urine Cocaine Screen NEGATIVE, U Cannabinoids Screen NEGATIVE, Ur Drug Screen Comment 02/28/24 03:50: Phosphorus 3.3, Magnesium 1.9, Triglycerides 97, Cholesterol 125, LDL Cholesterol 66, VLDL Cholesterol 19, HDL Cholesterol 40, Blood Type A POSITIVE, Antibody Screen NEGATIVE Imaging Radiology Impression Brain CT 02/27/24 22:16 IMPRESSION: 1. Stable exam. 2. Minimal chronic microvascular deep white matter disease. 3. No intracranial mass, hemorrhage or acute territorial infarct. 4. No radiographically significant sinus disease.. N.B. : The above Results were Read Back by Alexei Abdalla MD to Po Miller DO, and understanding confirmed on 02/27/2024 22:31:31 (ET). Electronically Signed: Alexei Abdalla MD at 22:33 EST , ADDENDUM: 02/27/24 2240 IMPRESSION: 1. Stable exam. 2. Minimal chronic microvascular deep white matter disease. 3. No intracranial mass, hemorrhage or acute territorial infarct. 4. No radiographically significant sinus disease.. N.B. : The above Results were Read Back by Alexei Abdalla MD to Po Miller DO, and understanding confirmed on 02/27/2024 22:31:31 (ET). Electronically Signed: Alexei Abdalla MD at 22:33 EST , Chest X-Ray 02/27/24 23:35 IMPRESSION: 1. Minimal atelectasis and volume loss at LEFT lung base. 2. No congestive failure, consolidation or effusion. Electronically Signed: Alexei Abdalla MD at 23:48 EST , Head/Neck CTA 02/28/24 22:58 IMPRESSION: 1. No large vessel occlusion or significant intracranial vascular abnormality. 2. 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 The neck of the aneurysm measures approximately 4 mm. No active bleeding identified. 3. Mild atherosclerotic changes right intracavernous internal carotid artery without hemodynamic significant stenosis. 4. Mild atherosclerotic changes left intracavernous internal carotid artery without hemodynamic significant stenosis. 5. Azygous type anterior cerebral artery. Electronically Signed: Alex Luis MD at 1:47 EST , ADDENDUM: 02/28/24 0156 IMPRESSION: 1. No large vessel occlusion or significant intracranial vascular abnormality. 2. 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 The neck of the aneurysm measures approximately 4 mm. No active bleeding identified. 3. Mild atherosclerotic changes right intracavernous internal carotid artery without hemodynamic significant stenosis. 4. Mild atherosclerotic changes left intracavernous internal carotid artery without hemodynamic significant stenosis. 5. Azygous type anterior cerebral artery. N.B. : The above Results were Read Back by Alex Luis MD to Po Miller DO, and understanding confirmed on 02/28/2024 01:50:02 (ET). Electronically Signed: Aelx Luis MD at 1:47 EST , ADDENDUM: 02/28/24 0158 IMPRESSION: undefined
[2024-02-28] MEDS: Acetaminophen 325 MG Tablet 650 MG PO ×2 (11:16→20:24)
[2024-02-28] MEDS: Baclofen 10 MG Tablet PO ×2 (11:16→20:24)
--- NOTE | 2024-02-28 12:03 | CASEMGMT ---
Social Work SW met with pt to complete PHQ9 depression screen due to CVA. Pt presents with score of 7 indicating mild depression. Pt states that persistent sleeping and low energy has been an issue for years and is related to pain. When asked if pt has had thoughts being better off or of harming himself, pt emphatically stating he would not harm himself and sites it is against the Lord's rules. Pt pt does state that he is a burden to his sister and thinks at times it would be better for her if he were gone. Pt states he does take medication for depression and feels it is helpful. Pt also has seen a psychiatrist, counselor and design specialist in the past. Pt denies any further needs regarding mood at this time. SW also completed SDOH screening. Pt denies any concerns with home situation. Pt does live in a 5th wheel camper but states it has electricity, heat, running water and no concerns. Pt states he has had bed bugs recently, but he has [place] that he was instructed by 6 different professionals on the matter. Pt denies any home concerns. Pt's sister martinez Gibbs is HCPOA and assists pt in IADLs. SW spoke with pt regarding alcohol use. Pt states that he does drink daily, but no more than a 6 pack of beer. Pt states that he does not drink to get drunk but drinks to treat the pain. SW inquired about resources to stop alcohol and pt states, Hell No!. If SNF is needed at [place], pt does state that he is a registered sex offender and a felon. This will be limiting to SNF placement and will need addressed if pt cannot return home. KAT Moon
--- NOTE | 2024-02-28 12:07 | CASEMGMT ---
Addendum entered by Shanice Iverson 02/28/24 15:53: Marii informed this RN CM that pt has voiced to her he never wants to be intubated again and asked that I pass this information along. RN, Jaky, notified of same. Marii also asked this RN CM to let pt know she would not be coming in this evening to see pt, but she will be in around 9 AM tomorrow morning. Pt made aware of same. Addendum entered by Shanice Iverson 02/28/24 15:46: Addendum: Pt has urologist, Dr Pérez, in [place]. RN CARMEN placed call to pt's sister, Marii. Introduced self and role. She verified that pt does not have SHIRA, stating he has never needed that. She verifies he does have Rx benefits and Rx assistance. His physical address is: [address] [place] [address] [address] [place] [address] She plans to come to ICU tomorrow morning @ 0900 for ICU multi-disciplinary rounds. Addendum entered by Shanice Iverson 02/28/24 13:01: Strata: 1 Original Note: RN CM Assessment: RN CM to room for initial transition planning/care coordination assessment. RN CM introduced self and role at [facility]. Pt willing to participate in assessment and is able to answer all questions appropriately, although unable to recall some information. Pt states since his strokes, he does have some difficulty remembering things, and states, if further information is needed, to call his sister, Marii, who is his HCPOA. He states she works 12-hr shift on nights and requested she not be called until after 3 PM, if able. Care providers and most demographics verified with pt. Pt states the address listed ([address] , [place], [place]) is his mailing address and states does not remember his physical address, stating, You'll have to ask my sister that. RN CM will attempt to contact Marii after 3 PM. PCP: Dr Reji Olmstead. Pt refers to him as Dr [place] Specialists: Dr Orozco, neurologist. Pt sees an orthopedic doctor @ [facility], but does not remember his name. Preferred Pharmacy: Pt is not sure where his sister would like for his Rx's to be sent. Insurance: [facility] A/B. Pt states he also has SHIRA. Call placed to Mabel in registration, who states she was not able to find SHIRA information for pt. Prescription Benefit: Pt states, I have no idea, my sister manages all of that. Living Will/HPOA: Pt has HCPOA, who is his sister, Marii. 1st alternative is bro-in-law, Jonathan. HCPOA is on file @ [facility]. LNOK: sister/HCPOA--Marii. Pt states he has 5 biological children and raised his step-son as well, that he considers his own. Living Arrangements: Patient lives alone in a camper with 4-5 steps and railing. Patient is normally independent at home a/ADL's. Sister, Marii, is a nurse, is supportive and assists pt w/medications, appts, transportation. Transportation: sister DME: Patient has cane, shower chair, walker, W/C, lift chair, and leg brace at home. Pt states he has an appt in [place] tomorrow @ [facility] for work to be done on the leg brace. He states his sister will call to cancel this, if she hasn't already. Pt has had oxygen in the past, but states he no longer has oxygen @ home. He states, And I don't want it, either. SNF/HHC: Pt has been to [facility] in the past and has had [facility] in the past. Pt states he smokes cigarettes, cigars and pipe. He vapes and chews tobacco products. Pt states he also smokes marijuana [id number], clarifying that it is about 2-3 x's/month. He also states he drinks 5-6 beers a day and drinks a glass of [employer] liquor daily, if he has it. Discussed discharge plan. Pt states he wants to go home at discharge. Pt currently on bedrest until 2302 tonight. He was made aware PT/OT evals will be done tomorrow and CM or SW will f/u with him once recommendations are made to discuss any further discharge needs/plans. Plan: TBD by course of treatment and progress with therapy. Randy FRYEN RN CM
--- NOTE | 2024-02-28 13:14 | STROKE.CONS ---
Assessment and Plan: Stroke Assessment/Plan ANDREA MCLAUGHLIN is a 58 M with a history of stroke with right hemiparesis (improved) who presents for evaluation of recurrent right hemiparesis and a flare of his chronic pain Neurological examination has returned to baseline with no obvious focal deficits. Head CT was unremarkable at presentation and at follow up this am. MRI is apparently pending. Suspect stroke recrudescence vs. conversion disorder vs. new ischemic stroke (left ICA aneurysm is a possible mechanism). Given symptom severity and duration a negative MRI will effectively rule out a new stroke. - Awaiting MRI brain. - Continue clopidogrel indefinitely, restarting 24 hours after thrombolysis. - Would attempt to uptitrate atorvastatin to a high intensity level, at least 40mg qhs if tolerated. - [facility] BP goal < 130/85 - Continue to follow post TNK protocol for next 24 hours - If MRI with new stroke, would get TTE and cardiac event monitor at discharge. - Continue treating metabolic abnormalities as they may be the primary cause of his symptoms - PT/OT eval HPI Consult Data Date of Consult: 02/28/24 HPI Narrative HPI Narrative: ANDREA MCLAUGHLIN, is a 58 M with a prior stroke reportedly resulting in severe right hemiparesis which subsequently improved to near normal who presents with recurrent right hemiparesis and a flare of the chronic pain in his right leg. He notes that symptoms came on rather quickly, but has a hard time differentiating the timing of his pain flare with his weakness worsening. At worst, he felt that his weakness was similar to what he experienced with his prior storke and he was noted to have severe right sided motor deficits on telestroke eval. Sometime after that, he noted marked improvement in his sympotms - he doesn't feel that he has completely returned to baseline, but he feels that his weakness has markedly improved. Noted to be hypokalemic and he notes that he missed some doses of his medicines prior to this visit. [facility] Medical History CVA (cerebral vascular accident) Pneumonia Stroke Pseudoseizures Vision problems GERD (gastroesophageal reflux disease) Osteoarthritis High triglycerides High cholesterol History of high blood pressure Migraines Headache History of emotional problems Seasonal allergies Home Medications ?Medication ?Instructions ?Recorded ?Last Taken ?Type Heavy duty shower chair #1 ea 09/27/21 Unknown Rx acetaminophen 650 mg 650 mg PO TID pain 09/27/21 Unknown History tablet,extended release (Tylenol Arthritis Pain) atorvastatin 20 mg tablet (Lipitor) 20 mg PO DAILY cholesterol 09/27/21 Unknown History doxazosin 8 mg tablet 8 mg PO DAILY prostate 09/27/21 Unknown History duloxetine 60 mg capsule,delayed 60 mg PO BID mental health 09/27/21 Unknown History release fenofibrate 160 mg tablet 160 mg PO DAILY cholesterol 09/27/21 Unknown History multivitamin (Multiple Vitamins 1 tab PO DAILY vitamin 09/27/21 Unknown History tablet) diltiazem HCl 120 mg 120 mg PO BID heart rate 03/05/22 Unknown History capsule,extended release 24 hr metoprolol tartrate 25 mg tablet 25 mg PO BID #60 tabs 03/11/22 Unknown Rx baclofen 20 mg tablet 20 mg .Route .COMPLEX #450 tabs 12/25/23 Unknown Rx clopidogrel 75 mg tablet (Plavix) 75 mg PO DAILY #90 tabs 12/25/23 Unknown Rx flurbiprofen 100 mg tablet 100 mg PO TID PRN pain #270 tabs 12/25/23 Unknown Rx omeprazole 40 mg capsule,delayed 40 mg PO DAILY #90 caps 12/25/23 Unknown Rx release ropinirole 4 mg tablet 4 mg PO BID #180 tabs 12/25/23 Unknown Rx Allergy/AdvReac Type Severity Reaction Status Date / Time codeine Allergy Hives Verified 12/24/23 14:15 Iodinated Contrast Media Allergy Hives Verified 12/24/23 14:15 (contrast dye - iodinated) Penicillins Allergy Hives Verified 12/24/23 14:15 shellfish derived Allergy Hives Verified 12/24/23 14:15 Family History Sister Anemia Mother Arthritis Hypertension Father Arthritis Hypertension High cholesterol Grandmother Depression Heart disease Thyroid disorder Surgical History History of appendectomy H/O: vasectomy History of tonsillectomy History of ankle surgery Social History Smoking Status: Current every day smoker tobacco type: cigarettes second hand exposure: Yes alcohol intake: current substance use type: does not use [place]/mandaeism: Anabaptist seatbelt use: always Vital Signs Vital Signs Vital Signs: 02/27/24 22:13 02/27/24 22:16 02/27/24 22:20 Temperature 0 F L Temperature Source Oral Pulse Rate 68 68 Respiratory Rate 16 18 Respiratory Effort Respiratory Depth Respiratory Pattern Blood Pressure 157/90 H 157/90 H Blood Pressure Mean 112 112 Blood Pressure Source Blood Pressure Position Blood Pressure Location Pulse Ox 98 97 98 Oxygen Delivery Method Nasal Cannula Room Air Nasal Cannula Oxygen Flow Rate (L/min) 2 2 02/27/24 22:28 02/27/24 22:30 02/27/24 22:30 Temperature Temperature Source Pulse Rate 65 70 69 Respiratory Rate 18 14 15 Respiratory Effort Respiratory Depth Respiratory Pattern Blood Pressure 152/101 H 152/101 H Blood Pressure Mean 118 118 Blood Pressure Source Blood Pressure Position Blood Pressure Location Pulse Ox 96 95 96 Oxygen Delivery Method Room Air Oxygen Flow Rate (L/min) 02/27/24 22:45 02/27/24 22:48 02/27/24 23:00 Temperature 98.6 F Temperature Source Oral Pulse Rate 66 67 Respiratory Rate 20 H 18 Respiratory Effort Respiratory Depth Respiratory Pattern Blood Pressure 137/98 H 137/98 H 135/89 H Blood Pressure Mean 111 111 105 Blood Pressure Source Blood Pressure Position Blood Pressure Location Pulse Ox 93 97 Oxygen Delivery Method Room Air Oxygen Flow Rate (L/min) 02/27/24 23:02 02/27/24 23:14 02/27/24 23:15 Temperature 97.8 F 97.0 F L Temperature Source Core Core Pulse Rate 63 63 Respiratory Rate 18 14 Respiratory Effort Respiratory Depth Respiratory Pattern Blood Pressure 135/89 H 135/88 H 150/97 H Blood Pressure Mean 103 114 Blood Pressure Source Monitor Blood Pressure Position Supine Blood Pressure Location Left Arm Pulse Ox 96 97 Oxygen Delivery Method Room Air Room Air Oxygen Flow Rate (L/min) 02/27/24 23:15 02/27/24 23:30 02/27/24 23:30 Temperature 98.6 F Temperature Source Core Pulse Rate 62 86 69 Respiratory Rate 17 18 18 Respiratory Effort Respiratory Depth Respiratory Pattern Blood Pressure 150/97 H 149/94 H 149/94 H Blood Pressure Mean 111 112 111 Blood Pressure Source Monitor Blood Pressure Position Supine Blood Pressure Location Left Arm Pulse Ox 94 99 Oxygen Delivery Method Room Air Oxygen Flow Rate (L/min) 02/27/24 23:40 02/27/24 23:45 02/27/24 23:49 Temperature 97.4 F L Temperature Source Core Pulse Rate 62 69 56 L Respiratory Rate 18 15 11 L Respiratory Effort Respiratory Depth Respiratory Pattern Blood Pressure 151/101 H 151/101 H Blood Pressure Mean 117 117 Blood Pressure Source Monitor Blood Pressure Position Semi-Fowlers Blood Pressure Location Right Arm Pulse Ox 95 96 95 Oxygen Delivery Method Room Air Oxygen Flow Rate (L/min) 02/28/24 00:00 02/28/24 00:00 02/28/24 00:00 Temperature 97.8 F Temperature Source Core Pulse Rate 62 69 Respiratory Rate 18 19 H Respiratory Effort Respiratory Depth Respiratory Pattern Blood Pressure 150/98 H 150/98 H 150/98 H Blood Pressure Mean 115 115 115 Blood Pressure Source Monitor Blood Pressure Position Semi-Fowlers Blood Pressure Location Right Arm Pulse Ox 93 92 Oxygen Delivery Method Room Air Oxygen Flow Rate (L/min) 02/28/24 00:15 02/28/24 00:15 02/28/24 00:16 Temperature 97.6 F L Temperature Source Core Pulse Rate 70 66 62 Respiratory Rate 21 H 18 20 H Respiratory Effort Respiratory Depth Respiratory Pattern Blood Pressure 157/103 H 160/105 H 158/105 H Blood Pressure Mean 121 123 121 Blood Pressure Source Monitor Blood Pressure Position Semi-Fowlers Blood Pressure Location Pulse Ox 93 90 Oxygen Delivery Method Room Air Oxygen Flow Rate (L/min) 02/28/24 00:19 02/28/24 00:30 02/28/24 00:30 Temperature 97.1 F L Temperature Source Core Pulse Rate 69 62 58 L Respiratory Rate 18 16 20 H Respiratory Effort Respiratory Depth Respiratory Pattern Blood Pressure 157/103 H 163/103 H Blood Pressure Mean 121 123 Blood Pressure Source Monitor Blood Pressure Position Semi-Fowlers Blood Pressure Location Right Arm Pulse Ox 97 96 Oxygen Delivery Method Room Air Oxygen Flow Rate (L/min) 02/28/24 00:38 02/28/24 00:38 02/28/24 00:45 Temperature 97.2 F L Temperature Source Core Pulse Rate 59 L 78 Respiratory Rate 19 H 18 Respiratory Effort Respiratory Depth Respiratory Pattern Blood Pressure 163/103 H 163/103 H 158/96 H Blood Pressure Mean 122 122 116 Blood Pressure Source Monitor Blood Pressure Position Semi-Fowlers Blood Pressure Location Right Arm Pulse Ox 94 Oxygen Delivery Method Room Air Oxygen Flow Rate (L/min) 02/28/24 00:45 02/28/24 00:50 02/28/24 00:51 Temperature Temperature Source Pulse Rate 63 61 57 L Respiratory Rate 13 20 H 14 Respiratory Effort Respiratory Depth Respiratory Pattern Blood Pressure 158/96 H Blood Pressure Mean 115 Blood Pressure Source Blood Pressure Position Blood Pressure Location Pulse Ox Oxygen Delivery Method Oxygen Flow Rate (L/min) 02/28/24 00:58 02/28/24 01:00 02/28/24 01:00 Temperature 97.5 F L 97.5 F L Temperature Source Core Pulse Rate 78 75 Respiratory Rate 18 18 Respiratory Effort Respiratory Depth Respiratory Pattern Blood Pressure 158/96 H 137/99 H 137/99 H Blood Pressure Mean 116 111 111 Blood Pressure Source Monitor Blood Pressure Position Semi-Fowlers Blood Pressure Location Right Arm Pulse Ox 94 94 Oxygen Delivery Method Room Air Oxygen Flow Rate (L/min) 02/28/24 01:15 02/28/24 01:15 02/28/24 01:17 Temperature 97.5 F L Temperature Source Core Pulse Rate 63 59 L Respiratory Rate 16 12 Respiratory Effort Respiratory Depth Respiratory Pattern Blood Pressure 154/92 H 154/92 H Blood Pressure Mean 112 112 Blood Pressure Source Monitor Blood Pressure Position Semi-Fowlers Blood Pressure Location Right Arm Pulse Ox 92 94 Oxygen Delivery Method Room Air Oxygen Flow Rate (L/min) 02/28/24 01:30 02/28/24 01:30 02/28/24 01:45 Temperature 97.9 F 98.1 F Temperature Source Oral Oral Pulse Rate 63 58 L 61 Respiratory Rate 13 19 H 17 Respiratory Effort Respiratory Depth Respiratory Pattern Blood Pressure 147/92 H 147/92 H 132/90 H Blood Pressure Mean 110 108 104 Blood Pressure Source Monitor Monitor Blood Pressure Position Semi-Fowlers Semi-Fowlers Blood Pressure Location Right Arm Right Arm Pulse Ox 92 91 94 Oxygen Delivery Method Room Air Room Air Oxygen Flow Rate (L/min) 02/28/24 01:45 02/28/24 02:00 02/28/24 02:00 Temperature 98.5 F Temperature Source Core Pulse Rate 63 60 Respiratory Rate 15 20 H Respiratory Effort Respiratory Depth Respiratory Pattern Blood Pressure 132/90 H 136/95 H Blood Pressure Mean 103 108 Blood Pressure Source Monitor Blood Pressure Position Semi-Fowlers Blood Pressure Location Right Arm Pulse Ox 92 94 88 Oxygen Delivery Method Nasal Cannula Room Air Oxygen Flow Rate (L/min) 2 02/28/24 02:00 02/28/24 02:15 02/28/24 02:15 Temperature 98.1 F Temperature Source Core Pulse Rate 68 65 61 Respiratory Rate 18 19 H 16 Respiratory Effort Respiratory Depth Respiratory Pattern Blood Pressure 136/95 H 135/92 H 134/92 H Blood Pressure Mean 108 106 106 Blood Pressure Source Monitor Blood Pressure Position Semi-Fowlers Blood Pressure Location Right Arm Pulse Ox 91 95 96 Oxygen Delivery Method Nasal Cannula Oxygen Flow Rate (L/min) 2 02/28/24 02:30 02/28/24 02:30 02/28/24 02:45 Temperature 98.1 F Temperature Source Core Pulse Rate 63 57 L 65 Respiratory Rate 15 20 H 19 H Respiratory Effort Respiratory Depth Respiratory Pattern Blood Pressure 141/88 H 141/88 H 144/88 H Blood Pressure Mean 105 105 105 Blood Pressure Source Monitor Blood Pressure Position Semi-Fowlers Blood Pressure Location Right Arm Pulse Ox 98 95 95 Oxygen Delivery Method Nasal Cannula Oxygen Flow Rate (L/min) 2 02/28/24 02:49 02/28/24 03:00 02/28/24 03:00 Temperature 98.1 F 98.3 F Temperature Source Core Core Pulse Rate 73 64 64 Respiratory Rate 15 19 H 18 Respiratory Effort Respiratory Depth Respiratory Pattern Blood Pressure 144/88 H 137/97 H 137/97 H Blood Pressure Mean 106 110 110 Blood Pressure Source Monitor Monitor Blood Pressure Position Semi-Fowlers Semi-Fowlers Blood Pressure Location Right Arm Right Arm Pulse Ox 97 94 94 Oxygen Delivery Method Nasal Cannula Nasal Cannula Oxygen Flow Rate (L/min) 2 2 02/28/24 03:15 02/28/24 03:34 02/28/24 03:34 Temperature 98.7 F 96.8 F L 96.8 F L Temperature Source Core Temporal Temporal Pulse Rate 67 65 66 Respiratory Rate 20 H 16 16 Respiratory Effort Respiratory Depth Respiratory Pattern Blood Pressure 140/98 H 149/98 H 149/98 H Blood Pressure Mean 112 115 115 Blood Pressure Source Monitor Monitor Monitor Blood Pressure Position Semi-Fowlers Semi-Fowlers Semi-Fowlers Blood Pressure Location Right Arm Right Arm Right Arm Pulse Ox 95 96 96 Oxygen Delivery Method Nasal Cannula Nasal Cannula Nasal Cannula Oxygen Flow Rate (L/min) 2 2 2 02/28/24 04:00 02/28/24 04:30 02/28/24 05:00 Temperature 98.3 F 98.5 F 98.4 F Temperature Source Core Core Core Pulse Rate 63 66 63 Respiratory Rate 17 19 H 19 H Respiratory Effort Respiratory Depth Respiratory Pattern Blood Pressure 149/98 H 142/95 H 151/91 H Blood Pressure Mean 115 110 111 Blood Pressure Source Monitor Monitor Monitor Blood Pressure Position Semi-Fowlers Semi-Fowlers Semi-Fowlers Blood Pressure Location Right Arm Right Arm Right Arm Pulse Ox 96 95 95 Oxygen Delivery Method Nasal Cannula Nasal Cannula Nasal Cannula Oxygen Flow Rate (L/min) 2 2 2 02/28/24 05:33 02/28/24 06:00 02/28/24 06:00 Temperature 98.4 F 98.3 F Temperature Source Core Core Pulse Rate 64 65 65 Respiratory Rate 20 H 19 H 16 Respiratory Effort Normal Non-Labored Respiratory Depth Normal Respiratory Pattern Normal Blood Pressure 152/91 H 139/99 H Blood Pressure Mean 111 112 Blood Pressure Source Monitor Monitor Blood Pressure Position Semi-Fowlers Semi-Fowlers Blood Pressure Location Right Arm Right Arm Pulse Ox 97 96 96 Oxygen Delivery Method Nasal Cannula Nasal Cannula Nasal Cannula Oxygen Flow Rate (L/min) 2 2 2 02/28/24 06:00 02/28/24 06:30 02/28/24 06:49 Temperature 98.3 F 98.0 F Temperature Source Core Core Pulse Rate 65 60 63 Respiratory Rate 18 19 H Respiratory Effort Respiratory Depth Respiratory Pattern Blood Pressure 144/94 H 145/97 H Blood Pressure Mean 110 113 Blood Pressure Source Monitor Monitor Blood Pressure Position Semi-Fowlers Semi-Fowlers Blood Pressure Location Right Arm Right Arm Pulse Ox 96 98 Oxygen Delivery Method Nasal Cannula Nasal Cannula Oxygen Flow Rate (L/min) 2 2 02/28/24 06:54 02/28/24 07:00 02/28/24 08:00 Temperature 97.9 F Temperature Source Core Pulse Rate 59 L 64 66 Respiratory Rate 15 20 H Respiratory Effort Respiratory Depth Respiratory Pattern Blood Pressure 145/97 H 151/92 H Blood Pressure Mean 113 111 Blood Pressure Source Monitor Monitor Blood Pressure Position Semi-Fowlers Semi-Fowlers Blood Pressure Location Left Arm Right Arm Pulse Ox 92 93 Oxygen Delivery Method Nasal Cannula Oxygen Flow Rate (L/min) 2 2 02/28/24 08:00 02/28/24 09:00 02/28/24 10:00 Temperature Temperature Source Pulse Rate 75 90 Respiratory Rate 22 H 16 Respiratory Effort Normal Non-Labored Respiratory Depth Normal Respiratory Pattern Normal Blood Pressure 174/94 H 152/90 H Blood Pressure Mean 120 110 Blood Pressure Source Monitor Blood Pressure Position Semi-Fowlers Blood Pressure Location Right Arm Pulse Ox 92 93 Oxygen Delivery Method Nasal Cannula Nasal Cannula Nasal Cannula Oxygen Flow Rate (L/min) 2 2 2 02/28/24 10:51 02/28/24 11:00 02/28/24 12:00 Temperature 98.4 F Temperature Source Temporal Pulse Rate 95 96 103 H Respiratory Rate 16 20 H Respiratory Effort Respiratory Depth Respiratory Pattern Blood Pressure 121/82 H 145/93 H Blood Pressure Mean 95 110 Blood Pressure Source Monitor Monitor Blood Pressure Position Semi-Fowlers Semi-Fowlers Blood Pressure Location Right Arm Right Arm Pulse Ox 95 94 Oxygen Delivery Method Nasal Cannula Nasal Cannula Oxygen Flow Rate (L/min) 2 2 02/28/24 12:00 02/28/24 12:00 Temperature 98.4 F Temperature Source Temporal Pulse Rate 90 Respiratory Rate 20 H Respiratory Effort Normal Non-Labored Respiratory Depth Normal Respiratory Pattern Normal Blood Pressure 145/93 H Blood Pressure Mean 110 Blood Pressure Source Monitor Blood Pressure Position Semi-Fowlers Blood Pressure Location Right Arm Pulse Ox 93 Oxygen Delivery Method Nasal Cannula Nasal Cannula Oxygen Flow Rate (L/min) 2 2 Weight Weight: 123 kg Body Mass Index (BMI) 33.9 NIHSS NIHSS Nursing Documentation NIHSS Nursing Documentation: Thrombolytic: Vital Signs & NIHSS Start: 02/27/24 22:55 Text: Assess and document vital signs and NIHSS Status: Complete within 15 minutes of tenecteplase bolus administration Freq: [id number] Protocol: Activity Type Activity Date Activity User E-sign Co-sign Detail Recorded Client Recorded Date Recorded By Document 02/28/24 03:15 [id number] 02/28/24 03:20 BW 02/28/24 03:15 Vital Signs [Temperature Protocol: VS] -Temperature (97.8 F-99.1 F) 98.7 F -Temperature Source Core [Pulse] -Pulse Rate (60-100) 67 -Pulse Location Monitor [Respirations] -Respiratory Rate (12-18) 20 H -Respiratory rate source Monitor -Pulse Oximetry 95 -Oxygen Delivery Method Nasal Cannula -O2 L/MIN 2 [Blood Pressure] -Blood Pressure (90/60-120/80) 140/98 H -Blood Pressure Mean 112 -Source Monitor -Position Semi-Fowlers -Blood Pressure Location Right Arm -Is the SBP > or = 180 No -Is the DBP > or = 105 No NIH Stroke Scale [NIHSS] A score of 0 is normal or asymptomatic . Total possible score is 42. Inpatient: RN or Physician to activate a stroke alert for onset of new stroke symptoms or with NIHSS increase >/= 3 points. Following change in neurological status, NIHSS will be performed per physician order or more frequently PRN. -1a. Level of Consciousness Alert; keenly responsive -1b. LOC Questions Answers BOTH questions correctly. -1c. LOC Commands Performs both tasks correctly . -2. Best Gaze Partial gaze palsy; -3. Visual No visual loss -4. Facial Palsy Normal symmetrical movements -5a. Left Arm No drift; arm holds 90 (or 45 ) degrees for full 10 seconds -5b. Right Arm Some effort against gravity ; -6a. Left Leg No drift; leg holds 30-degree position for full 5 seconds -6b. Right Leg No drift; leg holds 30-degree position for full 5 seconds -7. Limb Ataxia Absent -8. Sensory Mild-to- moderate sensory loss; -9. Best Language No aphasia; normal -10. Dysarthria Mild-to- moderate dysarthria; -11. Extinction and Inattention No abnormality -Total 5 Query Text:A score of 0 is normal or asymptomatic. Total possible score is 42 . ED: Notify Physician for NIHSS increase by > / = 3 points. Inpatient: RN or Physician to activate a stroke alert for NIHSS increase of > / = 3 points. Thrombolytic: Vital Signs & NIHSS Start: 02/28/24 03:34 Text: Assess and document vital signs and NIHSS Status: Active within 15 minutes prior to Tenecteplase administration Freq: Q1HOUR Protocol: Activity Type Activity Date Activity User E-sign Co-sign Detail Recorded Client Recorded Date Recorded By Document 02/28/24 12:00 [facility] [id number] 02/28/24 12:08 [facility] 02/28/24 12:00 Vital Signs [Temperature Protocol: VS] -Temperature (97.8 F-99.1 F) 98.4 F -Temperature Source Temporal [Pulse] -Pulse Rate (60-100) 90 -Pulse Location Monitor [Respirations] -Respiratory Rate (12-18) 20 H -Respiratory rate source Monitor -Pulse Oximetry 93 -Oxygen Delivery Method Nasal Cannula -O2 L/MIN 2 [Blood Pressure] -Blood Pressure (90/60-120/80) 145/93 H -Blood Pressure Mean 110 -Source Monitor -Position Semi-Fowlers -Blood Pressure Location Right Arm -Is the SBP > or = 180 No -Is the DBP > or = 105 No NIH Stroke Scale [NIHSS] A score of 0 is normal or asymptomatic . Total possible score is 42. Inpatient: RN or Physician to activate a stroke alert for onset of new stroke symptoms or with NIHSS increase >/= 3 points. Following change in neurological status, NIHSS will be performed per physician order or more frequently PRN. -1a. Level of Consciousness Alert; keenly responsive -1b. LOC Questions Answers BOTH questions correctly. -1c. LOC Commands Performs both tasks correctly . -2. Best Gaze Normal -3. Visual No visual loss -4. Facial Palsy Normal symmetrical movements -5a. Left Arm No drift; arm holds 90 (or 45 ) degrees for full 10 seconds -5b. Right Arm Drift; arm drifts downward but doesn?t hit the bed -6a. Left Leg No drift; leg holds 30-degree position for full 5 seconds -6b. Right Leg No drift; leg holds 30-degree position for full 5 seconds -7. Limb Ataxia Absent -8. Sensory Mild-to- moderate sensory loss; -9. Best Language No aphasia; normal -10. Dysarthria Mild-to- moderate dysarthria; -11. Extinction and Inattention No abnormality -Total 3 Query Text:A score of 0 is normal or asymptomatic. Total possible score is 42 . ED: Notify Physician for NIHSS increase by > / = 3 points. Inpatient: RN or Physician to activate a stroke alert for NIHSS increase of > / = 3 points. NIHSS 1b. LOC Questions: Answers BOTH questions correctly. 1c. LOC Commands: Performs both tasks correctly. 2. Best Gaze: Normal 3. Visual: No visual loss 4. Facial Palsy: Normal symmetrical movements 5a. Left Arm: No drift; arm holds 90 (or 45) degrees for full 10 seconds 5b. Right Arm: No drift; arm holds 90 (or 45) degrees for full 10 seconds 6a. Left Leg: No drift; leg holds 30-degree position for full 5 seconds 6b. Right Leg: No drift; leg holds 30-degree position for full 5 seconds 7. Limb Ataxia: Absent 8. Sensory: Normal; no sensory loss 9. Best Language: No aphasia; normal 10. Dysarthria: [id number] dysarthria; 11. Extinction and Inattention: No abnormality Total: 1 Lab / Micro Data 02/27/24 22:20 02/27/24 22:20 Labs: Laboratory Results - last 24 hr 02/27/24 22:20: WBC 7.8, RBC 4.10 L, Hgb 12.5 L, Hct 36.7 L, MCV 89.5, MCH 30.5, MCHC 34.1, RDW Std Deviation 46.3 H, RDW Coeff of Keith 14.2, Plt Count 173, MPV 9.2, Immature Gran % (Auto) 0.500, Neut % (Auto) 60.3, Lymph % (Auto) 30.3, [place] % (Auto) 5.9, Eos % (Auto) 2.2, Baso % (Auto) 0.8, Absolute Neuts (auto) 4.7, Absolute Lymphs (auto) 2.36, Nucleated RBC % 0, PT 13.5, INR 1.0, APTT 28.2, Sodium 139, Potassium 3.1 L, Chloride 106, Carbon Dioxide 27.0, Anion Gap 6, BUN 12, Creatinine 0.75, Estim Creat Clear Calc 153.22, Est GFR (MDRD) Af Amer 137, Est GFR (MDRD) Non-Af 113, BUN/Creatinine Ratio 16.0, Glucose 84, Hemoglobin A1c 4.8, Calcium 8.2 L, Magnesium 1.6, TSH 2.040, Ethyl Alcohol 98.0 02/27/24 22:30: Urine Opiates Screen NEGATIVE, Urine Methadone Screen NEGATIVE, Ur Barbiturates Screen NEGATIVE, Ur Phencyclidine Scrn NEGATIVE, Ur Amphetamines Screen NEGATIVE, MDMA (Ecstasy) Screen NEGATIVE, U Benzodiazepines Scrn NEGATIVE, Urine Cocaine Screen NEGATIVE, U Cannabinoids Screen NEGATIVE, Ur Drug Screen Comment 02/28/24 03:50: Phosphorus 3.3, Magnesium 1.9, Triglycerides 97, Cholesterol 125, LDL Cholesterol 66, VLDL Cholesterol 19, HDL Cholesterol 40, Blood Type A POSITIVE, Antibody Screen NEGATIVE Imaging Radiology Impression Brain CT 02/27/24 22:16 IMPRESSION: 1. Stable exam. 2. Minimal chronic microvascular deep white matter disease. 3. No intracranial mass, hemorrhage or acute territorial infarct. 4. No radiographically significant sinus disease.. N.B. : The above Results were Read Back by Alexei Abdalla MD to Po Miller DO, and understanding confirmed on 02/27/2024 22:31:31 (ET). Electronically Signed: Alexei Abdalla MD at 22:33 EST , ADDENDUM: 02/27/24 2240 IMPRESSION: 1. Stable exam. 2. Minimal chronic microvascular deep white matter disease. 3. No intracranial mass, hemorrhage or acute territorial infarct. 4. No radiographically significant sinus disease.. N.B. : The above Results were Read Back by Alexei Abdalla MD to Po Miller DO, and understanding confirmed on 02/27/2024 22:31:31 (ET). Electronically Signed: Alexei Abdalla MD at 22:33 EST , Chest X-Ray 02/27/24 23:35 IMPRESSION: 1. Minimal atelectasis and volume loss at LEFT lung base. 2. No congestive failure, consolidation or effusion. Electronically Signed: Alexei Abdalla MD at 23:48 EST , Brain CT 02/28/24 10:07 IMPRESSION: Chronic involutional changes of the brain. Electronically Signed: Matt Walker MD at 10:48 EST , Head/Neck CTA 02/28/24 22:58 IMPRESSION: 1. No large vessel occlusion or significant intracranial vascular abnormality. 2. 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 The neck of the aneurysm measures approximately 4 mm. No active bleeding identified. 3. Mild atherosclerotic changes right intracavernous internal carotid artery without hemodynamic significant stenosis. 4. Mild atherosclerotic changes left intracavernous internal carotid artery without hemodynamic significant stenosis. 5. Azygous type anterior cerebral artery. Electronically Signed: Alex Luis MD at 1:47 EST , ADDENDUM: 02/28/244 IMPRESSION: 1. No large vessel occlusion or significant intracranial vascular abnormality. 2. 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 The neck of the aneurysm measures approximately 4 mm. No active bleeding identified. 3. Mild atherosclerotic changes right intracavernous internal carotid artery without hemodynamic significant stenosis. 4. Mild atherosclerotic changes left intracavernous internal carotid artery without hemodynamic significant stenosis. 5. Azygous type anterior cerebral artery. N.B. : The above Results were Read Back by Alex Luis MD to Po Miller DO, and understanding confirmed on 02/28/2024 01:50:02 (ET). Electronically Signed: Alex Luis MD at 1:47 EST , ADDENDUM: 02/28/24157 IMPRESSION: undefined Active Medications Active Medications Active Medications: Current Medications Generic Name Dose Route Start Last Admin Trade Name Freq PRN Reason Stop Dose Admin Acetaminophen 650 mg 02/28/24 03:34 02/28/24 11:16 Acetaminophen 325 Mg Tablet PO 650 mg TID PRN PRN Administration Pain 1-5/10 Or Fever Atorvastatin Calcium 20 mg 02/28/24 22:00 Atorvastatin Calcium 20 Mg Tablet PO 2200 JAIRO Baclofen 20 - 30 mg 02/28/24 03:34 02/28/24 11:16 Baclofen 10 Mg Tablet PO 20 mg 4X/DAY PRN PRN Administration MUSCLE SPASM Dicyclomine HCl 20 mg 02/28/24 03:45 Dicyclomine 10 Mg Capsule PO Q6H PRN PRN abdominal discomfort Diphenhydramine HCl 50 mg 02/28/24 03:34 Diphenhydramine 50 Mg/Ml Syringe IV X1 PRN Allergic Reaction Doxazosin Mesylate 8 mg 02/28/24 10:00 02/28/24 08:24 Doxazosin 4 Mg Tablet PO 8 mg DAILY JAIRO Administration Duloxetine HCl 60 mg 02/28/24 10:00 02/28/24 08:24 Duloxetine Hcl 60 Mg Capsule PO 60 mg BID JAIRO Administration Epinephrine HCl 0.3 mg 02/28/24 03:34 Epi Pen (Equiv) 0.3 Mg Syringe IM 02/29/24 03:12 X1 PRN Alleric Reaction Fenofibrate 145 mg 02/28/24 10:00 02/28/24 08:25 Fenofibrate 145 Mg Tablet PO 145 mg DAILY JAIRO Administration Folic Acid 1 mg 02/28/24 08:00 02/28/24 08:25 Folic Acid 1 Mg Tablet PO 1 mg DAILY@0800 JAIRO Administration Gabapentin 300 mg 02/28/24 03:45 Gabapentin 300 Mg Capsule PO Q8H PRN PRN moderate to severe anxiety Hydroxyzine Pamoate 50 mg 02/28/24 03:45 Hydroxyzine Lindy 25 Mg Capsule PO Q4H PRN PRN mild anxiety Sodium Chloride 1,000 mls @ 70 mls/hr 02/28/24 03:21 02/28/24 04:22 IV 02/28/24 17:38 70 mls/hr .[id number] JAIRO Administration Protocol Nicardipine/Sodium Chloride 20 mg in 200 mls @ 50 mls/hr 02/28/24 03:34 Cardene-Mahesh 20 Mg/200 Ml Soln CONT INF Q4H PRN See Instructions Protocol 5 MG/HR Famotidine 20 mg/ Sodium 10 mls @ 300 mls/hr 02/28/24 03:34 Chloride IV X1 PRN Allergic Reaction Sodium Chloride 500 mls @ 15 mls/hr 02/28/24 03:35 IV .[id number] PRN Saline Flush Sodium Chloride 500 mls @ 15 mls/hr 02/28/24 03:35 IV .[id number] PRN Additional IVPB Infusion Labetalol HCl 20 mg 02/28/24 03:34 Labetalol (Prefilled) 20 Mg/4 Ml Vial IV 02/29/24 03:34 X1 PRN BP Goals Loperamide HCl 2 mg 02/28/24 03:45 Loperamide 2 Mg Capsule PO Q4H PRN PRN Loose Stools Methylprednisolone 125 mg 02/28/24 03:34 Methylprednisolone 125 Mg/2 Ml Vial IV X1 PRN Allergic Reaction Morphine Sulfate 2 mg 02/28/24 03:34 Morphine 2 Mg/Ml Syringe IV Q4H PRN PRN Pain Score 6-10 Multivitamins 1 tablet 02/28/24 08:00 02/28/24 08:24 Multivitamins,Therapeutic Tablet PO 1 tablet DAILYCM JAIRO Administration Nicotine 14 mg 02/28/24 10:00 02/28/24 08:25 Nicotine 14 Mg Patch TD 14 mg DAILY JAIRO Administration Ondansetron HCl 8 mg 02/28/24 03:45 Ondansetron 8 Mg Tablet PO Q8H PRN PRN NAUSEA Pantoprazole Sodium 40 mg 02/28/24 10:00 02/28/24 08:25 Pantoprazole Sodium 40 Mg Tablet PO 40 mg DAILY JAIRO Administration Phenobarbital 97.2 mg 02/28/24 04:00 02/28/24 11:16 Phenobarbital 32.4 Mg Tablet PO 03/03/24 11:59 97.2 mg Q4H JAIRO Administration Taper Pramipexole Dihydrochloride 1.5 mg 02/28/24 10:00 02/28/24 08:25 Pramipexole Di-Hcl 0.5 Mg Tablet PO 1.5 mg BID JAIRO Administration Sodium Chloride 10 ml 02/28/24 03:34 02/28/24 08:24 0.9% Saline Lock 10 Ml Syringe IV 10 ml UD PRN Administration Before/After Tenecteplase Administration Sodium Chloride 10 - 40 ml 02/28/24 03:35 0.9% Saline Lock 10 Ml Syringe IV UD PRN SALINE FLUSH Thiamine HCl 100 mg 02/28/24 08:00 02/28/24 08:24 Thiamine Hydrochloride 100 Mg Tablet PO 100 mg DAILYCM JAIRO Administration Trazodone HCl 100 mg 02/28/24 03:45 Trazodone 100 Mg Tablet PO QHS PRN INSOMNIA
--- NOTE | 2024-02-28 15:03 | CHAPLAIN ---
Type of Pastoral Visit _x__ Initial Visit ___ Follow-up Visit ___ On-call Visit ___ General Patient Visit ___ Spiritual Assessment ___ Family Conference ___ Bereavement ___ Rapid Response ___ Code Blue ___ Other (describe below) Pastoral Care Referral From _x__ Patient ___ Family ___ Nurse ___ Physician ___ Stripe Marker ___ Chief Security And Safety Officer ___ Other (describe below) Sacrament/Intervention _x__ Active listening ___ Anointing ___ Zoroastrian ___ Bereavement ___ Communion _x__ Vandana exploration ___ ___ Life review _x__ Prayer ___ Reconciliation ___ Sacrament of Sick ___ Supportive presence ___ Wedding ___ Other (describe below) Pastoral Comments patient expresses his vandana and his health concerns; pt wants prayer and prays out loud for himself and others
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
[2024-02-28] MEDS: Atorvastatin Calcium 20 MG Tablet PO (20:26)
--- NOTE | 2024-02-28 22:58 | CT_ITS ---
We are attempting to reach an attending provider to discuss findings. An addendum with communication details will be sent when the communication is complete. EXAM: CT ANGIOGRAPHY HEAD AND NECK WITH INTRAVENOUS CONTRAST CLINICAL INDICATION: Neuro deficit, acute, stroke suspected TECHNIQUE: [place] [facility] [place]/head and neck CT angiography protocol performed with intravenous contrast. This CT exam was performed using one or more of the following dose reduction techniques: automated exposure control, adjustment of the mA and/or kV according to patient size, and/or use of iterative reconstruction technique. MIP reconstructed images were created and reviewed. CONTRAST: 100 cc of Isovue-370 IV. RADIATION DOSE: CTDIvol = 14.57 mGy, DLP = 804.36 mGy-cm COMPARISON: No relevant prior studies available. FINDINGS: HEAD: RIGHT ANTERIOR CEREBRAL ARTERY: Azygous type anterior cerebral artery. No occlusion or significant stenosis. No aneurysm. RIGHT MIDDLE CEREBRAL ARTERY: Unremarkable. No occlusion or significant stenosis. No aneurysm. RIGHT POSTERIOR CEREBRAL ARTERY: Unremarkable. No occlusion or significant stenosis. No aneurysm. RIGHT INTRACRANIAL INTERNAL CAROTID ARTERY: Mild atherosclerotic changes right intracavernous internal carotid artery without hemodynamic significant stenosis. No dissection or occlusion. RIGHT INTRACRANIAL VERTEBRAL ARTERY: Small intracranial right vertebral artery that terminates as the right posterior inferior cerebellar artery. No significant stenosis. No dissection or occlusion. LEFT ANTERIOR CEREBRAL ARTERY: See above. LEFT MIDDLE CEREBRAL ARTERY: Unremarkable. No occlusion or significant stenosis. No aneurysm. LEFT POSTERIOR CEREBRAL ARTERY: Unremarkable. No occlusion or significant stenosis. No aneurysm. LEFT INTRACRANIAL INTERNAL CAROTID ARTERY: Mild atherosclerotic changes left intracavernous internal carotid artery without hemodynamic significant stenosis. No dissection or occlusion. LEFT INTRACRANIAL VERTEBRAL ARTERY: Dominant intracranial left vertebral artery. No significant stenosis. No dissection or occlusion. BASILAR ARTERY: Unremarkable. No occlusion or significant stenosis. No aneurysm. OTHER VASCULATURE: No vascular malformation. NECK: RIGHT COMMON CAROTID ARTERY: Unremarkable. No significant stenosis. No dissection or occlusion. RIGHT EXTRACRANIAL INTERNAL CAROTID ARTERY: Unremarkable. No significant stenosis. No dissection or occlusion. RIGHT EXTERNAL CAROTID ARTERY: Unremarkable. No occlusion. RIGHT EXTRACRANIAL VERTEBRAL ARTERY: Small extracranial right vertebral artery. No significant stenosis. No dissection or occlusion. LEFT COMMON CAROTID ARTERY: Unremarkable. No significant stenosis. No dissection or occlusion. 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 The neck of the aneurysm measures approximately 4 mm. No active bleeding identified. No significant stenosis. No dissection or occlusion. LEFT EXTERNAL CAROTID ARTERY: Unremarkable. No occlusion. LEFT EXTRACRANIAL VERTEBRAL ARTERY: Dominant extracranial left vertebral artery. No significant stenosis. No dissection or occlusion. BRACHIOCEPHALIC AND SUBCLAVIAN ARTERIES: Unremarkable as visualized. No occlusion or significant stenosis. LUNG APICES: Unremarkable as visualized. HEAD and NECK: BONES/JOINTS: Unremarkable. No discrete lytic or blastic abnormalities. SOFT TISSUES: Unremarkable. CAROTID STENOSIS REFERENCE USING NASCET CRITERIA: % ICA stenosis = (1 - narrowest ICA diameter/diameter of distal cervical ICA) x 100. Mild - <50% stenosis. Moderate - 50-69% stenosis. Severe - 70-94% stenosis. Near occlusion - 95-99% stenosis. Occluded - 100% stenosis. CT/STROKE CTA Head AND Neck W/Con IMPRESSION: 1. No large vessel occlusion or significant intracranial vascular abnormality. 2. 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 The neck of the aneurysm measures approximately 4 mm. No active bleeding identified. 3. Mild atherosclerotic changes right intracavernous internal carotid artery without hemodynamic significant stenosis. 4. Mild atherosclerotic changes left intracavernous internal carotid artery without hemodynamic significant stenosis. 5. Azygous type anterior cerebral artery. Electronically Signed: Alex Luis MD at 1:47 EST ,
--- NOTE | 2024-02-28 23:02 | CT_ITS ---
STUDY: CT BRAIN WITHOUT CONTRAST REASON FOR EXAM: Male, 58 years old. 24 hour post TNK RADIATION DOSAGE (If Supplied By Facility): CTDIvol = ( 44.99 ) mGy, DLP = ( 846.73 ) mGycm TECHNIQUE: Transaxial CT imaging of the brain was performed without administration of intravenous contrast material. Individualized dose optimization techniques were used for this CT. COMPARISON: Same day, 01/28/2024 FINDINGS: Normal soft tissue structures. Normal calvarium. Normal size ventricles and extra-axial spaces for the patient''s age. Normal white matter tracts of the cerebral hemispheres. Normal basal ganglia and thalami. Normal brainstem. Normal cerebellum. There is no intracranial hemorrhage. There are no findings of an acute ischemic infarction. Normal visualized paranasal sinuses. CT/Brain/Head without Contrast IMPRESSION: Normal unenhanced CT scan of the brain. Electronically Signed: Polo Billingsley MD at 23:41 EST ,
--- NOTE | 2024-02-28 23:44 | NURSING ---
Spoke with Dr. Nazario regarding Post 24 Hour TNK push. Patient has consistently been scoring a 2 on the NIHSS, with known prior deficits from previous CVA/TBI as documented and followed by Neurologist Dr. Hector Orozco. Post [address] completed. Continuing to monitor for bleeding following the TNK -- bleeding from around Casey Catheter has ceased, but patient is still having hematuria with clots; is aware. ok'ed stopping NIH assessments. Patient is also able to be PCU status.
[2024-02-29] VITALS (10 sets, daily range): BP systolic 99–151; BP diastolic 57–102; PULSE 65–110; RESP 15–19; TEMP 36.2–36.8; O2SAT 92–96; BMI 34.2
[2024-02-29] MEDS: Phenobarbital 32.4 MG Tablet 64.8 MG PO ×6 (00:02→22:03)
[2024-02-29 05:07] LABS: Absolute Lymphocyte Count 2.11 X10^3/uL (0.83-4.51); Absolute Neutrophil Count 5.3 X10^3/uL (2.0-7.7); Basophil# 0.05 X10^3/uL; Basophil% 0.6 % (0-1); Eosinophil# 0.04 X10^3/uL; Eosinophils% 0.5 % (0-5); Hematocrit 36.5 % (40-54); Hemoglobin 12.6 g/dL (13.0-16.5); Lymphocyte # 2.11 X10^3/ul (0.83-4.51); Lymphocyte % 26.2 % (19-41); Mean Corp Hgb Conc 34.5 g/dL (32-36); Mean Corpuscular Hgb 30.6 pg (27.0-32.0); Mean Corpuscular Volume 88.6 fL (80-94); Mean Platelet Vol. 9.4 fl (6.2-12.0); Monocyte% 6.2 % (0-10); NRBC Flagged by Analyzer 0 % (0-5); Neutrophil # 5.31 X10^3/uL (2.7-7.7); Platelet Count 183 K/mm3 (150-450); RBC Distribution Width CV 14.1 % (11.6-14.6); RBC Distribution Width SD 45.4 fl (35.1-43.9); Red Blood Count 4.12 M/mm3 (4.6-6.2); White Blood Count 8.1 K/mm3 (4.4-11.0)
[2024-02-29 05:41] LABS: ALB/GLOB Ratio 1.2 RATIO (0.9-2.4); AST(SGOT) 11 U/L (15-37); Alanine Aminotransfer ALT/SGPT 17 U/L (16-61); Albumin, Serum 3.3 g/dL (3.2-5.0); Alkaline Phosphatase 41 U/L (45-117); Anion Gap 5 (5-15); BUN 11 mg/dL (7-18); BUN/Creat Ratio 15.7 RATIO (10-20); Calcium,Total 8.5 mg/dL (8.5-10.1); Chloride 108 mmol/L (98-107); EST Glomerular Filtration Rate 123 mL/min (>60); Est Glom Filt Rate - Afr Amer 149 mL/min (>60); Estimated Creatinine Clearance 163.25 ml/min; Globulin 2.8 g/dL (2.2-4.2); Glucose 104 mg/dL (74-106); Potassium 3.7 mmol/L (3.5-5.1); Protein, Total 6.1 g/dL (6.4-8.2); Sodium Level 139 mmol/L (136-145)
[2024-02-29] MEDS: Thiamine Hydrochloride 100 MG Tablet PO (09:14)
[2024-02-29] MEDS: DULoxetine Hcl 60 MG Capsule PO ×2 (09:15→22:04)
[2024-02-29] MEDS: Doxazosin 4 MG Tablet 8 MG PO (09:15)
[2024-02-29] MEDS: Pramipexole Di-HCl 0.5 MG Tablet 1.5 MG PO ×2 (09:16→22:05)
[2024-02-29] MEDS: Fenofibrate 145 MG Tablet PO (09:17)
[2024-02-29] MEDS: Pantoprazole Sodium 40 MG Tablet PO (09:17)
[2024-02-29] MEDS: Multivitamins,Therapeutic Tablet 1 TABLET PO (09:17)
[2024-02-29] MEDS: Folic Acid 1 MG Tablet PO (09:18)
--- NOTE | 2024-02-29 09:30 | MRI_ITS ---
STUDY: MRI BRAIN WITHOUT CONTRAST REASON FOR EXAM: Male, 58 years old. CVA -- MRI after IV thrombolytic administration, PRIOR STROKE, R ARM/LEG WEAKNESS TECHNIQUE: Standardized multiplanar fat and water weighted pulse sequences were obtained. COMPARISON: Head CT dated February 28, 2024. MRI of the brain dated March 06, 2022 FINDINGS: Normal size of the ventricles and extra-axial spaces for the patient''s age. There are a limited number of small white matter hyperintensities, distributed throughout the deep white matter tracts of the cerebral hemispheres, consistent with mild chronic white matter ischemic changes. There is no evidence for recent intracranial ischemia or other cause of cytotoxic edema on diffusion weighted imaging (DWI). Normal T2* images of the brain without demonstrated susceptibility artifact. There is no demonstrated hemosiderin stain. There are no demyelinating plagues of the supratentorial brain, brainstem or cerebellum. There are no findings suspicious for multiple sclerosis (MS). Normal bilateral basal ganglia. Normal thalami. There is no extra-axial fluid accumulation. Normal flow voids within the major intracranial circulation suggesting patency by spin echo criteria. Normal sella turcica, pituitary gland, infundibular stalk, optic chiasm and hypothalamus. Normal tectal plate and pineal gland. Normal midbrain, margaux and medulla. Normal cerebellum. Normal basal cisterns. Normal bilateral temporal bones. Normal bilateral internal auditory canals. No demonstrated orbital abnormality, within the constraints of a routine brain study. Normal visualized paranasal sinuses. Normal calvarium and skull base. Normal visualized soft tissue structures. Normal visualized upper cervical spine. MRI/Brain without Contrast IMPRESSION: No demonstrated acute infarct or intracranial hemorrhage 1. Mild chronic ischemic changes of the brain, as described above. Electronically Signed: Jose Thompson MD at 10:49 EST Reading Location ID and State: [facility] / [place] , Service support ,
[2024-02-29] MEDS: Acetaminophen 325 MG Tablet 650 MG PO ×2 (10:55→22:03)
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
[2024-02-29] MEDS: Clopidogrel Bisulfate 75 MG Tablet PO (14:38)
--- NOTE | 2024-02-29 15:37 | CASEMGMT ---
RN CM updated by MEHRAN that therapy recommending outpatient therapy at discharge. RN CM in to discuss with patient, patient requested RN CM to call sister. RN CM called sister NORM Colvin, no answer and voice message left with return contact information and weekend CM information. Green sheet placed on chart for outpatient therapy at discharge with [facility] information.
[2024-02-29] MEDS: Mag Hydrox/Al Hydrox/Simeth 30 ML UDC PO (18:49)
[2024-02-29] MEDS: Atorvastatin Calcium 40 MG Tablet PO (22:05)
[2024-03-01] MEDS: Phenobarbital 32.4 MG Tablet 64.8 MG PO ×4 (01:05→13:28)
[2024-03-01 02:35] VITALS: BP 135/90; PULSE 89; RESP 16; TEMP 36.9; O2SAT 95
[2024-03-01 04:05] VITALS: BP 148/108; PULSE 82; RESP 18; TEMP 36.2; O2SAT 97
[2024-03-01 04:19] VITALS: BMI 34.2
[2024-03-01 05:54] VITALS: BMI 33.0
[2024-03-01 08:05] VITALS: BP 149/90; PULSE 92; RESP 17; TEMP 36.4; O2SAT 93
[2024-03-01] MEDS: Fenofibrate 145 MG Tablet PO (08:28)
[2024-03-01] MEDS: Thiamine Hydrochloride 100 MG Tablet PO (08:28)
[2024-03-01] MEDS: Clopidogrel Bisulfate 75 MG Tablet PO (08:28)
[2024-03-01] MEDS: Pantoprazole Sodium 40 MG Tablet PO (08:28)
[2024-03-01] MEDS: Multivitamins,Therapeutic Tablet 1 TABLET PO (08:29)
[2024-03-01] MEDS: Pramipexole Di-HCl 0.5 MG Tablet 1.5 MG PO (08:29)
[2024-03-01] MEDS: Doxazosin 4 MG Tablet 8 MG PO (08:29)
[2024-03-01] MEDS: Folic Acid 1 MG Tablet PO (08:29)
[2024-03-01] MEDS: DULoxetine Hcl 60 MG Capsule PO (08:30)
--- NOTE | 2024-03-01 10:54 | DCINST_ITS ---
Discharge Instructions DC O2, CPAP, BIPAP needs PSN CPAP & BiPAP: BiPAP & CPAP Settings per PSN Fraction of Inspired Oxygen ( 85 02/29/24 00:00 FIO2) Additional Home O2 Discharge instructions: No Follow Up Care Test Results: Test results from this visit will be discussed in further detail at your follow- up appointment, if applicable. Discharge Plan Admission Admit Date/Time: 02/28/24 03:09 Primary Reason for Your Visit: Suspected stroke versus conversion disorder. Attending Provider: Kyle Tyler Primary Care Provider: Reji Olmstead Consulting Providers: Kyree Persaud; Micky Anthony; Slava Lamas; Jostin Mackay; Jose Maria Luis; Jacinto Gonzalez; Raul Lake; Karen Pineda; Randell Strauss; Reji Todd; Olga Lambert; Tracee Kennedy; Jasvir Couch; William Orozco; Richardson Ball; Charles Bazan; Jeffrey Tyler; Larry Matos; Daniel Desai; Daron Rogel; Walter Segundo; Winifred Wallis NP; Shanae Edmondson; Jose Maria Manjarrez; Patrick Medina; Lita Murray; Chitra Braga; Anali Winslow; Renee De La Garza; Wilbert Lopez; Lida Durán; Hugo Han; Po Nesbitt; Jaquan Dorsey; Marian Dee; Juan Reeves; Rachel Kyle; Sonido Whitten; Giovanni Metzger; Allen Hoffman; Yandel Mann; Ortiz Luevano; Kaley Kimball; Tirso Haskins; Mango Vasquez Discharge Orders/Prescriptions Prescriptions: New atorvastatin 40 mg Tablet 40 mg PO 2200 30 Days Qty: 30 2RF nicotine 14 mg/24 hr Patch 24 Hour 14 mg transdermal DAILY 28 Days Qty: 28 0RF thiamine HCl (vitamin B1) 100 mg Tablet 100 mg PO DAILYCM 30 Days Qty: 30 2RF folic acid 1 mg Tablet 1 mg PO DAILY@0800 30 Days Qty: 30 2RF Continued fenofibrate 160 mg tablet 160 mg PO DAILY duloxetine 60 mg capsule,delayed release(DR/EC) 60 mg PO BID doxazosin 8 mg tablet 8 mg PO DAILY multivitamin [Multiple Vitamins] Tablet 1 tab PO DAILY acetaminophen [Tylenol Arthritis Pain] 650 mg tablet extended release 650 mg PO TID (DME) Heavy duty shower chair Patient wt: 289lb See Rx Instructions .Route .MEDSUPPLY Qty: 1 0RF Rx Instructions: As directed baclofen 20 mg tablet 20 mg .ROUTE .COMPLEX Qty: 450 2RF Rx Instructions: Take 1 to 1-1/2 tablets PO 4 times daily as needed for muscle spasm/pain (up to a total of 5 tablets daily) flurbiprofen 100 mg tablet 100 mg PO TID PRN (Reason: pain) Qty: 270 2RF ropinirole 4 mg tablet 4 mg PO BID Qty: 180 2RF omeprazole 40 mg capsule,delayed release(DR/EC) 40 mg PO DAILY Qty: 90 2RF diltiazem HCl 120 mg capsule,extended release 24hr 120 mg PO BID metoprolol tartrate 25 mg Tablet 25 mg PO BID Qty: 60 0RF clopidogrel [Plavix] 75 mg tablet 75 mg PO DAILY 90 Days Qty: 90 1RF Discontinued atorvastatin [Lipitor] 20 mg tablet 20 mg PO DAILY Referrals / Follow Up: Reji Olmstead DO [Primary Care Provider] - Hector Orozco MD [Non-Staff -Ordering Privileges] - Within 1 Month Disposition Disposition (needs filled in before D/C Order can be placed): Home Health Service
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
[2024-03-01 12:05] VITALS: BP 122/83; PULSE 94; RESP 18; TEMP 36.6; O2SAT 94
[2024-03-01 16:05] VITALS: BP 144/88; PULSE 96; RESP 18; TEMP 36.6; O2SAT 96
[2024-03-01 17:00] VITALS: O2SAT 94; O2SAT 96
== END 2024-03-01 18:13 | disposition home health service (06) | DRG 62 ==
LOC: ED 02-28 02:08 → ICU 02-28 02:29 → PCU 02-29 06:33
PROVIDERS: Admitting Provider Internal Medicine; Emergency Provider Emergency Medicine; PCP Hospitalist; Visit Provider Internal Medicine
DX: I63.9 Cerebral infarction, unspecified (principal); G81.91 Hemiplegia, unspecified affecting right dominant side; F10.239 Alcohol dependence with withdrawal, unspecified; T83.83XA Hemorrhage due to genitourinary prosthetic devices, implants and grafts, initial encounter; I72.0 Aneurysm of carotid artery; I10 Essential (primary) hypertension; F32.A Depression, unspecified; G25.81 Restless legs syndrome; Z68.34 Body mass index [BMI] 34.0-34.9, adult; E87.6 Hypokalemia; K21.9 Gastro-esophageal reflux disease without esophagitis; E78.00 Pure hypercholesterolemia, unspecified; F17.210 Nicotine dependence, cigarettes, uncomplicated; F41.9 Anxiety disorder, unspecified; F10.229 Alcohol dependence with intoxication, unspecified; Z79.02 Long term (current) use of antithrombotics/antiplatelets; Z79.1 Long term (current) use of non-steroidal anti-inflammatories (NSAID); R31.9 Hematuria, unspecified; Z79.899 Other long term (current) drug therapy; N40.1 Benign prostatic hyperplasia with lower urinary tract symptoms; R35.0 Frequency of micturition; R39.15 Urgency of urination; Z98.52 Vasectomy status; Z90.49 Acquired absence of other specified parts of digestive tract; Y90.4 Blood alcohol level of 80-99 mg/100 ml; M51.369 Other intervertebral disc degeneration, lumbar region without mention of lumbar back pain or lower extremity pain; R51.9 Headache, unspecified; E66.811 Obesity, class 1
CPT/HCPCS: 51702; 70450; 70496; 70498; 70551; 71045; 80048; 80053; 80061; 80307; 82077; 83036; 83735; 84100; 84443; 85025; 85610; 85730; 86850; 86900; 86901; 92610; 93005; 93306; 97162; 97166; 97802; 99285; J3101; Q9957; Q9967; A4216; C1769; C8929

== ENCOUNTER 2025-01-08 18:01 | Emergency (ER) | payer MEDICARE, SELFPAY ==
[2025-01-08] VITALS (7 sets, daily range): BP systolic 119–130; BP diastolic 74–84; PULSE 71–90; RESP 18–26; TEMP 36.1–36.6; O2SAT 93–95; BMI 34.0
--- NOTE | 2025-01-08 18:30 | CT_ITS ---
PROCEDURE: CT CHEST, ABD, PELVIS WO CONT 01/08/2025 REASON FOR EXAM: FELL DOWN A FLIGHT OF STAIRS, PAIN ANTERIOR RIGHT TECHNIQUE: Chest, abdomen and pelvis CT without intravenous contrast. Coronal and Sagittal reconstruction series were provided. One or more dose reduction techniques were used (e.g., Automated exposure control, adjustment of the mA and/or kV according to patient size, use of iterative reconstruction technique. RADIATION DOSE SUMMARY: CTDlvol: - mGy DLP: - mGycm COMPARISON: None. FINDINGS: CT CHEST: Hardware: None. Lymph nodes: No lymphadenopathy. Heart and Vasculature: Mild cardiomegaly. Coronary Artery Calcifications: Atherosclerotic calcifications. Lungs and Airways: No pulmonary consolidation. Pleura: No pleural effusion or pneumothorax Bones: No acute bony abnormalities. CT ABDOMEN / PELVIS: Noncontrast technique limits evaluation of the abdominal and pelvic viscera. Liver: Hepatomegaly with the liver measures 21 cm in length. Gallbladder: Unremarkable. No biliary dilation. Spleen: Splenomegaly measures 16.7 in length. Pancreas: Unremarkable. Adrenals: Unremarkable. Kidneys: Perinephric fat stranding. No hydronephrosis or nephrolithiasis. A 1.5 cm simple cyst at the midpole of the right kidney. Bladder: Unremarkable Reproductive Organs: Unremarkable. Bowel: No bowel obstruction. No bowel wall thickening. Colonic diverticulosis with no evidence of acute diverticulitis. Appendix: Normal. Lymph nodes: Unremarkable. Vasculature: No aneurysm. Atherosclerotic calcifications. Peritoneum / Retroperitoneum: No free air or free fluid. Bones: No acute bony abnormalities. Abdominal wall: A 3.7 cm fat containing periumbilical hernia. No evidence of incarceration. CT/CT Chest, Abd, Pelvis WO Cont IMPRESSION: No acute abdominopelvic abnormalities. Hepatosplenomegaly. Colonic diverticulosis with no evidence of acute diverticulitis. Reading Location: [facility]
--- NOTE | 2025-01-08 18:31 | CT_ITS ---
PROCEDURE: SPINE CERVICAL WITHOUT CONTRAS 01/08/2025 REASON FOR EXAM: TRAUMA TECHNIQUE: Procedure Code: CTSPC Modality: CT Procedure: SPINE CERVICAL WITHOUT CONTRAS Coronal and Sagittal reconstruction series were provided. One or more dose reduction techniques were used (e.g., Automated exposure control, adjustment of the mA and/or kV according to patient size, use of iterative reconstruction technique. FINDINGS: No evidence of acute fracture or dislocation. [id number] degenerative changes of the visualized spine. Straightening of the normal cervical lordosis. CT/Spine Cervical without Contras IMPRESSION: No acute intracranial abnormality. Reading Location: [id number]
--- NOTE | 2025-01-08 18:31 | EKG12_ITS ---
Test Reason : FALL/SOB Blood Pressure : */* mmHG Vent. Rate : 74 BPM Atrial Rate : 74 BPM P-R Int : 158 ms QRS Dur : 90 ms QT Int : 390 ms P-R-T Axes : 42 27 33 degrees QTcB Int : 432 ms Normal sinus rhythm Normal ECG Confirmed by TALAT MCCLOUD, ZACHERY ([id number]), digital editor NICKIE RODARTE ([id number]) on 01/12/2025 6:19:12 AM Referred By: Confirmed By: ZACHERY GILLILAND MD
--- NOTE | 2025-01-08 18:31 | CT_ITS ---
PROCEDURE: BRAIN/HEAD WITHOUT CONTRAST 01/08/2025 REASON FOR EXAM: TRAUMA TECHNIQUE: Procedure Code: CTBR Modality: CT Procedure: BRAIN/HEAD WITHOUT CONTRAST Coronal and Sagittal reconstruction series were provided. One or more dose reduction techniques were used (e.g., Automated exposure control, adjustment of the mA and/or kV according to patient size, use of iterative reconstruction technique. COMPARISON: 02/29/2024. FINDINGS: Mild global parenchymal atrophy. Mild chronic microvascular ischemia. No evidence of acute hemorrhage or infarction. No extra-axial blood or fluid collections. The paranasal sinuses and mastoid air cells are clear. The calvarial vault and skull base are intact. CT/Brain/Head without Contrast IMPRESSION: No acute intracranial abnormality. Reading Location: [id number]
--- NOTE | 2025-01-08 18:47 | EDS_ITS ---
HPI History of Present Illness Chief Complaint: Fall Detail of Chief Complaint: Fall down 7 steps, head trauma, severe headache, chest and abdominal pain Informant: patient and family Onset/Context/Timing Onset: Days (Apparently he fell approximate week ago) Mechanism/Context: Fall Location of pain/injuries: - (Documented HPI narrative) Quality of Pain: Aching Location: Headache, anterior chest, hips and abdomen Current Severity: Severe (Patient states his headache is severe) Maximum Severity: Severe Worsened by: Chest abdomen and hip pain is worse with breathing, movement and use respec Relieved by: Nothing Associated Symptoms Associated Symptoms: Negative for Parasthesias, Weakness, Loss of function, Inability to ambulate, Loss of consciousness or Amnesia Narrative Narrative: Patient is a 59-year-old male. He is on Plavix. He apparently was at family member's house. He turned. States the steps were slippery. He fell down 7 steps. He does endorse head trauma. He is not amnestic. He is confused, which is baseline since she has had 4 prior strokes. He does have a foot drop on the right. He does endorse nausea. He had no vomiting. He denies double vision, blurred vision or loss of vision. He has had some problems with his speech since the fall. He presently is having difficulty remembering things. Per family member this is not abnormal. He is not on a anticoagulant he is on antithrombotic, Plavix 75 mg daily. He denies dark-colored urine or blood in his urine. He denies blood in his stool Prior similar symptoms: No Recent Illness/Hospitalization: No [facility] Medical History History of CVA (cerebrovascular accident) CVA (cerebral vascular accident) Pneumonia Stroke Pseudoseizures Vision problems GERD (gastroesophageal reflux disease) Osteoarthritis High triglycerides High cholesterol History of high blood pressure Migraines Headache History of emotional problems Seasonal allergies Home Medications ?Medication ?Instructions ?Recorded ?Last Taken ?Type Heavy duty shower chair #1 ea 09/27/21 Unknown Rx acetaminophen 650 mg 650 mg PO TID pain 09/27/21 Unknown History tablet,extended release (Tylenol Arthritis Pain) doxazosin 8 mg tablet 8 mg PO DAILY prostate 09/27 Unknown History duloxetine 60 mg capsule,delayed 60 mg PO BID mental h ealt 09/27/21 Unknown History release fenofibrate 160 mg tablet 160 mg PO DAILY cholesterol 09/27/21 Unknown History multivitamin (Multiple Vitamins 1 tab PO DAILY vitamin 09/27/21 Unknown History tablet) diltiazem HCl 120 mg 120 mg PO BID heart rate Unknown History capsule,extended release 24 hr metoprolol tartrate 25 mg tablet 25 mg PO BID #60 tabs 03/11/22 Unknown Rx folic acid 1 mg tablet 1 mg PO DAILY@0800 30 days # 30 tabs 03/01/24 Unknown Rx nicotine 14 mg/24 hr daily 14 mg transdermal DAILY 28 days 03/01/24 Unknown Rx transdermal patch #28 ea thiamine HCl (vitamin B1) 100 mg 100 mg PO DAILYCM 30 days #30 tabs 03/01/24 Unknown Rx tablet atorvastatin 40 mg tablet 40 mg PO QDAY 30 days #90 ta bs 04/16/24 Unknown Rx baclofen 20 mg tablet 20 mg .Route .COMPLEX #450 t abs 08/28/24 Unknown Rx clopidogrel 75 mg tablet (Plavix) 75 mg PO DAILY 90 da ys #90 tabs 08/28/24 Unknown Rx flurbiprofen 100 mg tablet 100 mg PO TID PRN pain #270 tabs 08/28/24 Unknown Rx omeprazole 40 mg capsule,delayed 40 mg PO DAILY #90 ca ps 08/28/24 Unknown Rx release ropinirole 4 mg tablet 4 mg PO BID #180 tabs Unknown Rx oxycodone-acetaminophen 5 mg-325 1 tab PO Q6H PRN PRN pain 5 days 01/08/25 Unknown Rx mg tablet #20 TABLETS Allergy/AdvReac Type Severity Reaction Status Date / Time codeine Allergy Hives Verified 01/08/25 18:01 Iodinated Contrast Media Allergy Hives Verified 01/08/25 18:01 (contrast dye - iodinated) Penicillins Allergy Hives Verified 01/08/25 18:01 shellfish derived Allergy Hives Verified 01/08/25 18:01 Family History Sister Anemia Mother Arthritis Hypertension Father Arthritis Hypertension High cholesterol Grandmother Depression Heart disease Thyroid disorder Surgical History History of appendectomy H/O: vasectomy History of tonsillectomy History of ankle surgery Social History Smoking Status: Current every day smoker tobacco type: cigarettes second hand exposure: Yes alcohol intake: current substance use type: does not use [place]/congregation: [employer] seatbelt use: always ROS ROS ED Constitutional Constitutional ED: Denies chills, fever(s), subjective or sweats Eyes Eyes: Reports change in vision; Denies blurry vision ENT ENT ED: Denies ear pain, rhinorrhea or sore throat Cardiovascular Cardiovascular: Reports chest pain; Denies palpitations, paroxysmal nocturnal dyspnea or racing heartbeat Respiratory/Chest Respiratory/Chest: Reports dyspnea; Denies cough, dyspnea on exertion or paroxysmal nocturnal dyspnea Gastrointestinal Gastrointestinal: Reports abdominal pain and nausea; Denies constipation, diarrhea, melena or vomiting Genitourinary Genitourinary ED: Denies dysuria, hematuria or urinary frequency Musculoskeletal Musculoskeletal: Denies arthralgias or back pain Integumentary Denies rash Neurologic Neurologic: Reports headache(s) and weakness; Denies paresthesias Endocrine Endocrinology: Reports cold intolerance and heat intolerance Hematologic/Lymphatic Hematologic/Lymphatic: Reports easy bruising; Denies easy bleeding EXAM Physical Exam Const Vital Signs: 01/08/25 18:01 01/08/25 18:20 01/08/25 19:20 Temperature 97 F L Temperature Source Temporal Pulse Rate 90 87 80 Respiratory Rate 26 H Respiratory Effort Respiratory Depth Respiratory Pattern Blood Pressure 128/84 H 122/79 H 122/79 H Blood Pressure Mean 98 93 93 Pulse Ox 95 95 93 Oxygen Delivery Method Room Air Room Air Room Air 01/08/25 19:25 01/08/25 20:00 01/08/25 21:00 Temperature Temperature Source Pulse Rate 82 71 Respiratory Rate 18 18 Respiratory Effort Normal Non-Labored Respiratory Depth Normal Respiratory Pattern Normal Blood Pressure 120/82 H 127/74 H Blood Pressure Mean 94 91 Pulse Ox 95 93 Oxygen Delivery Method Room Air Room Air 01/08/25 22:00 Temperature Temperature Source Pulse Rate Respiratory Rate Respiratory Effort Respiratory Depth Respiratory Pattern Blood Pressure 119/74 Blood Pressure Mean 89 Pulse Ox Oxygen Delivery Method Positive well nourished and well developed Constitutional Narrative: Patient is diaphoretic. He appears uncomfortable. General Appearance ED: well developed HEENT Reports TM's clear trauma and tenderness Nose: Negative for septum abnormal Tympanic Membrane ED: Yes TM's clear Eyes PERRL and EOMs intact bilaterally General Eye ED: Yes other Other Details: There is no subconjunctival hemorrhage. There is no nystagmus. Neck Neck Narrative: Patient reports neck pain. He is not point tenderness however he is not reliable. Chest Wall inspection of chest normal and palpation of chest normal Chest Narrative: Patient has pain to the right with AP pressure of the sternum. He has pain over the 5th, 6th and 7th rib on the right. There is no crepitus subcutaneous air. Resp normal respiratory effort and clear to auscultation bilaterally Resp Narrative: Patient is tachypneic. Cardio regular rhythm, S1 normal heart sound, S2 normal heart sound and no murmurs Rate: regular rate GI normal to inspection, nondistended, normoactive bowel sounds, non-tender, non- distended and no masses Palpation: soft Back/Spine Negative for normal to inspection Back/Spine Narrative: Patient has a leg brace and knee brace. This is due to prior stroke. He states if he does not wear it his knee will buckle and he is got a foot drop. Extremity Negative for normal to inspection or full ROM Neuro No oriented x3, CN's II-XII intact bilaterally, moves all extremities and no sensory deficits noted Neuro Narrative: Motor strength is 5/5 upper extremity. Unable to assess right lower extremity. Left lower extremity is normal. Sung Coma Scale: document GCS findings To Voice Obeys Commands Confused 13 Sensorium / Orientation: Negative for alert Plantar Reflex: Downgoing: bilateral Psych Psych Narrative: Affect is flat. Mood is depressed Skin no rashes or lesions noted, no wounds and skin turgor normal MDM MDM MDM Narrative Medical decision making narrative: With severe headache on Plavix with head trauma need to rule out intracranial bleed. CT of the head was obtained. Since he has C-spine tenderness will obtain CT of the neck. Because of the chest pain abdominal pain will obtain CT of the chest, abdomen and pelvis to rule out rib fractures, pneumothorax, hemothorax, intraparenchymal contusion, hepatic injury since he has significant tenderness in the right upper quadrant. Lab Data Attestation: I reviewed the patient's lab results. Lab results narrative: CBC reveals anemia with normal indices. Basic metabolic panel is unremarkable. Glucose is slightly elevated 103. Urinalysis is negative. Labs: Laboratory Results - last 24 hr 01/08/25 01/08/25 19:25 19:33 WBC 6.1 RBC 4.00 L Hgb 11.9 L Hct 35.7 L MCV 89.3 MCH 29.8 MCHC 33.3 RDW Std Deviation 50.4 H RDW Coeff of Keith 15.3 H Plt Count 172 MPV 9.4 Immature Gran % (Auto) 0.500 Neut % (Auto) 73.5 H Lymph % (Auto) 17.4 L [place] % (Auto) 7.1 Eos % (Auto) 1.0 Baso % (Auto) 0.5 Absolute Neuts (auto) 4.5 Absolute Lymphs (auto) 1.05 Nucleated RBC % 0 PT 13.9 INR 1.1 Sodium 132 L Potassium 3.9 Chloride 100 Carbon Dioxide 20.0 L Anion Gap 12 BUN 13 Creatinine 0.85 Estim Creat Clear Calc 132.38 Est GFR (MDRD) Non-Af 100 BUN/Creatinine Ratio 14.8 Glucose 103 H Calcium 8.7 Urine Color Yellow Urine Clarity Clear Urine pH 6.0 Ur Specific [place] 1.010 Urine Protein Negative Urine Glucose (UA) Normal Urine Ketones Negative Urine Occult Blood Negative Urine Nitrite Negative Urine Bilirubin Negative Urine Urobilinogen Normal Ur Leukocyte Esterase Negative Urine RBC 0 SEEN Urine WBC 0 SEEN Ur Squamous Epith Cells 0-5 SEEN Urine Bacteria RARE Urine Mucus 0 SEEN Radiography Diagnostic Testing: Clinical Impression(s) from Imaging Studies Chest/Abdomen/Pelvis CT 01/08/25 18:30 IMPRESSION: No acute abdominopelvic abnormalities. Hepatosplenomegaly. Colonic diverticulosis with no evidence of acute diverticulitis. Reading Location: [id number] Brain CT 01/08/25 18:31 IMPRESSION: No acute intracranial abnormality. Reading Location: [id number] Cervical Spine CT 01/08/25 18:31 IMPRESSION: No acute intracranial abnormality. Reading Location: [facility] CT of the head without contrast was independent reviewed interpreted by me as negative. There is no evidence of skull fracture, subdural hematoma, epidural hematoma, traumatic subarachnoid hemorrhage or parenchymal contusion. The C- spine CAT scan revealed degenerative changes with no evidence of fracture, subluxation or dislocation. There is no prevertebral soft tissue swelling noted either. CT of the abdomen revealed no evidence of pneumoperitoneum, liver or splenic injury. Kidneys appeared normal. My review was at 2039. Awaiting formal read of CT of the head, neck and abdomen by radiologist. CT of the head was read as no acute intracranial abnormality. This was dictated at 2054. The CT of the cervical spine was interpreted as no acute abnormality and dictated at 2100 Treatment and Re-Evaluation Narrative: Since patient scans are negative will discharge to home with opiate analgesics. Discharge Plan Triage Chief Complaint: Fall ED Provider: Sin Powell Dx/Rx/DC Orders Clinical Impression: Concussion without loss of consciousness, initial encounter, Antiplatelet or antithrombotic long-term use, Contusion of anterior chest wall, Strain of abdominal wall, Acute hip pain, bilateral, Fall down steps, Obesity (BMI 30.0- 34.9), History of stroke, Depression Instructions: ED Concussion, ED Chest Wall Contusion, ED Muscle Strain, Abdomen Prescriptions: New oxycodone-acetaminophen 5-325 mg tablet 1 tab PO Q6H PRN PRN (Reason: pain) 5 Days Qty: 20 0RF No Action fenofibrate 160 mg tablet 160 mg PO DAILY duloxetine 60 mg capsule,delayed release(DR/EC) 60 mg PO BID doxazosin 8 mg tablet 8 mg PO DAILY multivitamin [Multiple Vitamins] Tablet 1 tab PO DAILY acetaminophen [Tylenol Arthritis Pain] 650 mg tablet extended release 650 mg PO TID (DME) Heavy duty shower chair Patient wt: 289lb See Rx Instructions .Route .MEDSUPPLY Qty: 1 0RF Rx Instructions: As directed baclofen 20 mg tablet 20 mg .ROUTE .COMPLEX Qty: 450 2RF Rx Instructions: Take 1 to 1-1/2 tablets PO 4 times daily as needed for muscle spasm/pain (up to a total of 5 tablets daily) clopidogrel [Plavix] 75 mg tablet 75 mg PO DAILY 90 Days Qty: 90 2RF flurbiprofen 100 mg tablet 100 mg PO TID PRN (Reason: pain) Qty: 270 2RF ropinirole 4 mg tablet 4 mg PO BID Qty: 180 2RF omeprazole 40 mg capsule,delayed release(DR/EC) 40 mg PO DAILY Qty: 90 2RF atorvastatin 40 mg tablet 40 mg PO QDAY 30 Days Qty: 90 1RF diltiazem HCl 120 mg capsule,extended release 24hr 120 mg PO BID metoprolol tartrate 25 mg Tablet 25 mg PO BID Qty: 60 0RF nicotine 14 mg/24 hr Patch 24 Hour 14 mg transdermal DAILY 28 Days Qty: 28 0RF thiamine HCl (vitamin B1) 100 mg Tablet 100 mg PO DAILYCM 30 Days Qty: 30 2RF folic acid 1 mg Tablet 1 mg PO DAILY@0800 30 Days Qty: 30 2RF Primary Care Provider: Reji Olmstead Referrals: Reji Olmstead DO [Primary Care Provider, Family Practice] - 1 Week if not improving Activity Restrictions/Additional Instructions: Apply ice to areas of discomfort 6-8 times a day. Print Language: Bel[place]ian Disposition Disposition: Home, Self Care
[2025-01-08 19:40] LABS: Color, Urine Yellow (Yellow); Glucose, Dipstick Normal (Normal); Ketone-Dipstick Negative (Negative); Leukocyte Esterase-Dipstick Negative /ul (Negative); Mucous, Urine 0 SEEN /hpf (<or=2+); Nitrite-Dipstick Negative (Negative); Occult Blood-Urine Negative /ul (Negative); Protein-Dipstick Negative (Negative); Red Blood Cells-Urine 0 SEEN /hpf (0-5); Specific Gravity, Urine 1.010 (1.002-1.030); Urine Bilirubin Dipstick Negative (Negative)
[2025-01-08 19:40] LABS: Hematocrit 35.7 % (40-54); Hemoglobin 11.9 g/dL (13.0-16.5); Immature Granulocytes Count 0.030 X10^3/uL (0.0-0.0); Mean Corp Hgb Conc 33.3 g/dL (32-36); Mean Corpuscular Volume 89.3 fL (80-94); Mean Platelet Vol. 9.4 fl (6.2-12.0); NRBC Flagged by Analyzer 0 % (0-5); Platelet Count 172 K/mm3 (150-450); RBC Distribution Width CV 15.3 % (11.6-14.6); RBC Distribution Width SD 50.4 fl (35.1-43.9); Red Blood Count 4.00 M/mm3 (4.6-6.2); White Blood Count 6.1 K/mm3 (4.4-11.0)
[2025-01-08 19:57] LABS: Prothrombin Time (Protime)PT. 13.9 SECONDS (11.7-14.9)
[2025-01-08 19:58] LABS: Squamous Epithelial Cells - UA 0-5 SEEN /hpf (0-5)
[2025-01-08 20:01] LABS: Anion Gap 12 (5-15); BUN 13 mg/dL (4-19); BUN/Creat Ratio 14.8 RATIO (10-20); Calcium,Total 8.7 mg/dL (7.6-11.0); Carbon Dioxide 20.0 mmol/L (21.0-32.0); Chloride 100 mmol/L (98-108); Estimated Creatinine Clearance 132.38 ml/min (50-250); Glucose 103 mg/dL (70-99); Potassium 3.9 mmol/L (3.3-5.1)
== END 2025-01-08 23:12 | disposition home or self-care (01) ==
PROVIDERS: Emergency Provider Emergency Medicine; PCP Hospitalist; Visit Provider Emergency Medicine
DX: S06.0X0A Concussion without loss of consciousness, initial encounter (principal); Z86.73 Personal history of transient ischemic attack (TIA), and cerebral infarction without residual deficits; E78.00 Pure hypercholesterolemia, unspecified; Z79.02 Long term (current) use of antithrombotics/antiplatelets; G44.309 Post-traumatic headache, unspecified, not intractable; K21.9 Gastro-esophageal reflux disease without esophagitis; F17.210 Nicotine dependence, cigarettes, uncomplicated; W10.9XXA Fall (on) (from) unspecified stairs and steps, initial encounter; S20.219A Contusion of unspecified front wall of thorax, initial encounter; S39.011A Strain of muscle, fascia and tendon of abdomen, initial encounter; M25.551 Pain in right hip; M25.552 Pain in left hip; E66.9 Obesity, unspecified
CPT/HCPCS: 70450; 71250; 72125; 74176; 80048; 81001; 85025; 85610; 93005; 96374; 99283; A4216; J2405